=== PATIENT | male | born 1960 | race Hispanic/Latino ===

== ENCOUNTER 2020-05-22 10:17 | Inpatient (IN) | payer BC ==
[~2020-05-22] VITALS: Ht 167.6 cm; Wt 111.0 kg
[2020-05-22 12:15] LABS: BASOPHILS % (AUTO) 0.4 % (0.0-5.0); EOSINOPHILS % (AUTO) 0.2 % (0.0-8.0); HEMATOCRIT 40.7 % (42-54); LYMPHOCYTES % (AUTO) 7.9 % (21.0-51.0); MEAN CORPUSCULAR HEMOGLOBIN 29.6 pg (27.0-33.0); MEAN CORPUSCULAR HGB CONC 33.2 g/dL (32.0-36.0); MEAN CORPUSCULAR VOLUME 89.3 fL (79-99); MONOCYTES % (AUTO) 17.4 % (3.0-13.0); NEUTROPHILS % (AUTO) 73.2 % (40.0-77.0); PLATELET COUNT (AUTO) 443 K/uL (130-400); RED BLOOD CELL COUNT(AUTO) 4.56 MIL/uL (4.50-6.20); WHITE BLOOD COUNT (AUTO) 16.2 K/uL (4.8-10.8)
[2020-05-22 12:30] LABS: INR 1.19 (0.85-1.15); PARTIAL THROMBOPLASTIN TIME 39.2 SEC (26.3-35.5); PROTHROMBIN TIME 12.8 SEC (9.6-11.6)
[2020-05-22 12:31] LABS: CREATININE 1.3 mg/dL (0.5-1.5); POTASSIUM 3.2 mmol/L (3.5-5.1)
[2020-05-22] MEDS ORDERED: CEFTRIAXONE SODIUM 2 GM VIAL ONE (13:13)
[2020-05-22] MEDS ORDERED: SODIUM CHLORIDE 0.9% 1000ML 1,000 ML IV ONE (13:14)
[2020-05-22] MEDS ORDERED: VANCOMYCIN 1.5 GM in SODIUM CHLORIDE 0.9% 250 ML IV SCH (13:30)
[2020-05-22] MEDS: SODIUM CHLORIDE 0.9% 1000ML 1,000 ML IV SCH ×2 (14:30→21:12)
[2020-05-22] MEDS ORDERED: ACETAMINOPHEN 325 MG TAB PO PRN (14:30)
[2020-05-22] MEDS ORDERED: VANCOMYCIN PROTOCOL PER PHARMACY IV SCH (14:30)
[2020-05-22] MEDS ORDERED: ONDANSETRON HCL 4 MG/2 ML VIAL IV PRN (14:30)
[2020-05-22] MEDS ORDERED: COMPOUND IV REFRIGERATED 1 EACH IVSOLN MISC PRN (14:30)
[2020-05-22] MEDS ORDERED: POTASSIUM CHLORIDE 20MEQ/100ML 100 ML IV PRN ×2 (14:45→17:30)
[2020-05-22 14:58] LABS: HEMOGLOBIN A1C 8.9 % (4.0-6.0)
[2020-05-22] MEDS ORDERED: INSULIN HUMULIN R 100 UNIT/ML 3ML SQ SCH (16:30)
[2020-05-22 16:40] LABS: ABG BASE EXCESS 0.6 mmol/L (-2.0-3.0); ABG HCO3 22.4 mmol/L (21.0-28.0); ABG OXYGEN SATURATION 97.4 % (95.0-99.0); ABG PCO2 29 mmHg (35-48)
[2020-05-22] MEDS: FAMOTIDINE/PF 20 MG/2 ML VIAL IV SCH (21:00)
[2020-05-22] MEDS: INSULIN HUMULIN R 100 UNIT/ML 3ML SQ SCH (21:00)
[2020-05-22] MEDS ORDERED: INSULIN GLARGINE 100 UNITS/ML 10 ML VIAL SQ SCH (21:00)
[2020-05-22] MEDS ORDERED: LIDOCAINE HCL-MPF 1% 2ML VIAL ONE (23:09)
[2020-05-22] MEDS ORDERED: POTASSIUM CHLORIDE 20 MEQ ERTAB PO ONE (23:09)
[2020-05-22] MEDS ORDERED: POTASSIUM CHLORIDE 20MEQ/100ML 100 ML IV ONE (23:09)
[2020-05-22] MEDS ORDERED: FAMOTIDINE/PF 20 MG/2 ML VIAL IV ONE (23:10)
[2020-05-22] MEDS ORDERED: INSULIN HUMULIN R 100 UNIT/ML 3ML ONE (23:11)
[2020-05-22] MEDS ORDERED: ACETAMINOPHEN EXTRA STRENGTH 500 MG TABLET ONE (23:31)
[2020-05-23] VITALS (31 sets, daily range): BP systolic 118–167; BP diastolic 57–89
[2020-05-23] MEDS ORDERED: LIDOCAINE HCL-MPF 1% 2ML VIAL IV PRN (01:00)
[2020-05-23] MEDS ORDERED: POTASSIUM CHLORIDE 20MEQ/100ML 100 ML IV PRN (01:00)
[2020-05-23] MEDS ORDERED: VANCOMYCIN 1GM+NS 250ML 0 ML IV ONE (01:04)
[2020-05-23] MEDS: VANCOMYCIN 1.25 GM in SODIUM CHLORIDE 0.9% 250 ML IV SCH ×3 (02:17→21:31)
[2020-05-23] MEDS: POTASSIUM CHLORIDE 20 MEQ ERTAB PO PRN ×3 (02:20→21:33)
[2020-05-23] MEDS: MAGNESIUM 2GM PREMIX 50ML 50 ML IV PRN (02:40)
[2020-05-23] MEDS: INSULIN HUMULIN R 100 UNIT/ML 3ML SQ SCH ×7 (06:12→21:00)
[2020-05-23 06:34] LABS: BASOPHILS % (AUTO) 0.7 % (0.0-5.0); EOSINOPHILS % (AUTO) 0.6 % (0.0-8.0); HEMATOCRIT 34.8 % (42-54); LYMPHOCYTES % (AUTO) 8.9 % (21.0-51.0); MEAN CORPUSCULAR HEMOGLOBIN 29.7 pg (27.0-33.0); MEAN CORPUSCULAR HGB CONC 32.5 g/dL (32.0-36.0); MEAN CORPUSCULAR VOLUME 91.3 fL (79-99); MONOCYTES % (AUTO) 19.8 % (3.0-13.0); NEUTROPHILS % (AUTO) 68.4 % (40.0-77.0); PLATELET COUNT (AUTO) 340 K/uL (130-400); RED BLOOD CELL COUNT(AUTO) 3.81 MIL/uL (4.50-6.20); RED CELL DISTRIBUTION WIDTH 12.3 % (11.0-15.5); WHITE BLOOD COUNT (AUTO) 14.3 K/uL (4.8-10.8)
[2020-05-23 06:52] LABS: ALBUMIN 1.9 g/dL (3.5-5.0); BILIRUBIN,TOTAL 1.2 mg/dL (0.2-1.0); CREATININE 1.1 mg/dL (0.5-1.5); POTASSIUM 3.2 mmol/L (3.5-5.1); TOTAL PROTEIN, SERUM 7.2 g/dL (6.0-8.3)
[2020-05-23] MEDS: FAMOTIDINE/PF 20 MG/2 ML VIAL IV SCH ×2 (09:00→21:31)
[2020-05-23] MEDS: CEFTRIAXONE SODIUM 1 GM IV SCH (09:00)
[2020-05-23] MEDS: SODIUM CHLORIDE 0.9% 1000ML 1,000 ML IV SCH (10:32)
--- NOTE | 2020-05-23 12:39 | NUR ---
SPOKE TO PATIENT AT BEDSIDE FOR D/C PLANNING STATES LIVES WITH SPOUSE, ZORAN BARON WHO WILL PROVIDE TRANSPORT .. RETIRED A YEAR AND A HALF AGO, IS ACTIVE, INDEPENDENT, DRIVES, HAS NOT FOLLOW UP WITH PRIMARY MD, ALTHOUGH DR. CHINCHILLA IS ON HIS FACE SHEET. NEW DX OF DM II WILL NEED FOLLOW UP AND GLUCOMETER ETC. NPO FOR DEBRIDEMENT TODAY. Addendum: 05/23/20 at 1242 by JERE MENDOZA RN CM Amended: Links added.
--- NOTE | 2020-05-23 12:58 | NUR ---
DR ARSHAD HERE WITH THE PT. REQUESTED A 10CC SYRINGE, 18GAUGE NEEDLE AND CHLORAPREP. EDUARDO 10ML OF BLOOD TINGED PUS FROM PTS LT LATERAL THIGH. CULTURE OBTAINED. DR BAL REQUESTED WE NOTIFY DR GONZALES., DONE. WITH A PHOTO SENT. DR BAL ASKED WHY THIS WASN'T DONE PREVIOUSLY
--- NOTE | 2020-05-23 15:45 | NUR ---
PT TAKEN TO SURGERY BY BED IN GOOD CONDITION WITH IV SITES IN PLACE. PT IS CALM AND PLEASANT WITH NO CURRENT COMPLAINTS OF PAIN OR RESP DIFFICULTY.
[2020-05-23] MEDS ORDERED: SODIUM CHLORIDE 0.9% 1000ML 1,000 ML IV ONE (15:56)
[2020-05-23] MEDS ORDERED: METOCLOPRAMIDE 10 MG/2 ML VIAL ONE (16:20)
[2020-05-23] MEDS ORDERED: MIDAZOLAM HCL 1 MG/ML 2ML VIAL ONE (16:27)
[2020-05-23] MEDS ORDERED: ROCURONIUM 10MG/1ML SYR 10 MG/ML ML ONE (16:27)
[2020-05-23] MEDS ORDERED: LIDOCAINE PF 2% 5ML ABBOJECT ONE (16:27)
[2020-05-23] MEDS ORDERED: SUCCINYLCHOLINE 200MG/10ML SYR ONE (16:27)
[2020-05-23] MEDS ORDERED: PROPOFOL 10 MG/ML 20ML VIAL IV ONE (16:27)
[2020-05-23] MEDS ORDERED: FENTANYL CITRATE PF 50 MCG/1 ML 2ML VIAL ONE ×2 (16:28→17:14)
[2020-05-23] MEDS ORDERED: ONDANSETRON HCL 4 MG/2 ML VIAL ONE (16:46)
[2020-05-23] MEDS ORDERED: MEPERIDINE-PF 25 MG/ML SYG ONE ×2 (18:25→18:44)
--- NOTE | 2020-05-23 20:30 | NUR ---
TRANSFER NOTE: Pt admitted to floor via stretcher from recovery room. Also,he is a transfer from [facility] [place]. Arrived to floor fully awake and responsive. AOX4. Has IV site to Lt. hand #[id number] with NS 1L almost empty. -patent and intact. Bandage to left leg was reinforced by OR staff with additional gauze near the groin to stop the bleeding /drain of fluid. Stained of small blood noted to the bandage. Plan of care initiated. Pt. place on full liquid diet as ordered. Denies feeling of pain at this time. VS checked per post-op protocol. Physical assessment done.( See CPOE flow chart for full assessment). Hooked to Tele at bedside with ST result 100-110 bpm. Personal belongings brought by pt's . No apparent distress noted. Kept observed for any unusualities. Needs attended and cared for.
[2020-05-23] MEDS: INSULIN GLARGINE 100 UNITS/ML 10 ML VIAL SQ SCH (21:30)
[2020-05-24] VITALS (8 sets, daily range): BP systolic 115–157; BP diastolic 54–91
[2020-05-24 05:29] LABS: BASOPHILS % (AUTO) 0.5 % (0.0-5.0); EOSINOPHILS % (AUTO) 0.5 % (0.0-8.0); HEMATOCRIT 31.9 % (42-54); LYMPHOCYTES % (AUTO) 11.1 % (21.0-51.0); MEAN CORPUSCULAR HEMOGLOBIN 29.3 pg (27.0-33.0); MEAN CORPUSCULAR VOLUME 91.7 fL (79-99); MONOCYTES % (AUTO) 16.7 % (3.0-13.0); NEUTROPHILS % (AUTO) 66.5 % (40.0-77.0); PLATELET COUNT (AUTO) 369 K/uL (130-400); RED BLOOD CELL COUNT(AUTO) 3.48 MIL/uL (4.50-6.20); RED CELL DISTRIBUTION WIDTH 12.7 % (11.0-15.5); WHITE BLOOD COUNT (AUTO) 16.8 K/uL (4.8-10.8)
[2020-05-24 05:48] LABS: ALBUMIN 1.6 g/dL (3.5-5.0); BILIRUBIN,TOTAL 1.4 mg/dL (0.2-1.0); MAGNESIUM 1.9 mg/dL (1.80-2.40); POTASSIUM 3.3 mmol/L (3.5-5.1); TOTAL PROTEIN, SERUM 6.3 g/dL (6.0-8.3)
[2020-05-24] MEDS: INSULIN HUMULIN R 100 UNIT/ML 3ML SQ SCH ×5 (06:35→20:40)
--- NOTE | 2020-05-24 07:30 | NUR ---
ASSESSMENT ENCOUNTERED PT A&OX3, CALM COOPERATIVE AND DOES NOT APPEAR TO BE IN NAY DISTRESS NOR ANY NEURO DEFICITS PRESENT. PT DENIES PAIN, SOB, NAUSEA. LLE DRESSING DAMP WITH ABD PADS, KERLIX AND SECURED WITH MADI WRAP. DP/PT PULSES PALPABLE. DRESSING CHANGE, PHYSICAL THERAPY ORDERS PENDING BY SURGEON. CALL LIGHT WITHIN REACH, FAMILY AT BEDSIDE.
[2020-05-24] MEDS ORDERED: SODIUM CHLORIDE 0.9% 1000ML 1,000 ML IV ONE (08:15)
[2020-05-24] MEDS ORDERED: POTASSIUM CHLORIDE 20 MEQ ERTAB PO SCH (09:05)
[2020-05-24] MEDS: FAMOTIDINE/PF 20 MG/2 ML VIAL IV SCH ×2 (09:23→20:56)
[2020-05-24] MEDS: CEFTRIAXONE SODIUM 1 GM IV SCH (09:23)
[2020-05-24] MEDS: VANCOMYCIN 1.25 GM in SODIUM CHLORIDE 0.9% 250 ML IV SCH (09:23)
--- NOTE | 2020-05-24 12:00 | NUR ---
TRANSFER TO 3RD FLOOR REPORT GIVEN TO BARI HARRISON, CALL LIGHT WITHIN REACH.
[2020-05-24] MEDS ORDERED: HYDROMORPHONE HCL 2 MG/ML VIAL ONE (13:04)
[2020-05-24] MEDS: HYDROMORPHONE HCL 0.5 MG/0.5 ML ML IVP PRN (13:30)
[2020-05-24] MEDS ORDERED: VANCOMYCIN 1.25 GM in SODIUM CHLORIDE 0.9% 250 ML IV SCH (14:00)
--- NOTE | 2020-05-24 14:50 | NUR ---
RD NOTIFICATION Pt admitted with L-Thigh Abscess. Initial consult cancellation, however Pt with new onset DM. Pt s/p I&D. Bandages being changed at time of visit, 2 attempts. Pt diet at 75gm CCD. No report of GI distress. Pt with borderline Obesity Class III, BMI 39.5. Monitored labs: WBC 16.8, Na 130, K 3.3, Cl 98, BG 131, Ca 7.6, T. Bili 1.4, Alb 1.6, A1C 8.9%. New consultation received. Recommend Continue 75gm CCD Recommend Hebert BID, 500mg Vitamin C BID, 220mg Zinc QD RD to follow up with Diabetes Nutrition Education Addendum: 05/25/20 at [address] Amended: Links added.
[2020-05-24] MEDS ORDERED: HYDROMORPHONE HCL 2 MG/ML VIAL IVP ONE (16:00)
[2020-05-24] MEDS: POTASSIUM CHLORIDE 10% ELIXIR 20 MEQ/15 ML UDCUP PO PRN ×2 (17:00→18:41)
[2020-05-24] MEDS: INSULIN GLARGINE 100 UNITS/ML 10 ML VIAL SQ SCH (20:56)
[2020-05-24] MEDS: VANCOMYCIN 1.5 GM in SODIUM CHLORIDE 0.9% 250 ML IV SCH (20:56)
--- NOTE | 2020-05-25 03:26 | NUR ---
FREQUENT HICCUPS PT COMPLAINTS OF FREQUENT HICCUPS. REFERRED TO ON-CALL COMPRESSOR ENGINEER WITH AN ORDER OF THORAZINE 25 MG PO X 1 ONLY.
[2020-05-25 04:00] VITALS: BP 153/77
[2020-05-25 05:19] LABS: BASOPHILS % (AUTO) 0.7 % (0.0-5.0); EOSINOPHILS % (AUTO) 1.2 % (0.0-8.0); HEMATOCRIT 29.9 % (42-54); LYMPHOCYTES % (AUTO) 10.7 % (21.0-51.0); MEAN CORPUSCULAR HEMOGLOBIN 29.1 pg (27.0-33.0); MEAN CORPUSCULAR HGB CONC 31.8 g/dL (32.0-36.0); MEAN CORPUSCULAR VOLUME 91.7 fL (79-99); MONOCYTES % (AUTO) 11.6 % (3.0-13.0); NEUTROPHILS % (AUTO) 66.1 % (40.0-77.0); PLATELET COUNT (AUTO) 405 K/uL (130-400); RED BLOOD CELL COUNT(AUTO) 3.26 MIL/uL (4.50-6.20); RED CELL DISTRIBUTION WIDTH 12.7 % (11.0-15.5); WHITE BLOOD COUNT (AUTO) 20.7 K/uL (4.8-10.8)
[2020-05-25 05:41] LABS: ALBUMIN 1.5 g/dL (3.5-5.0); BILIRUBIN,TOTAL 1.7 mg/dL (0.2-1.0); CREATININE 0.8 mg/dL (0.5-1.5); POTASSIUM 3.9 mmol/L (3.5-5.1); TOTAL PROTEIN, SERUM 6.5 g/dL (6.0-8.3)
[2020-05-25] MEDS: INSULIN HUMULIN R 100 UNIT/ML 3ML SQ SCH ×7 (06:04→21:30)
[2020-05-25 08:00] VITALS: BP 132/78
[2020-05-25] MEDS: CEFTRIAXONE SODIUM 1 GM IV SCH (09:52)
[2020-05-25] MEDS: FAMOTIDINE/PF 20 MG/2 ML VIAL IV SCH ×2 (09:52→20:54)
[2020-05-25 11:00] VITALS: BP 149/78
[2020-05-25] MEDS: VANCOMYCIN 1.5 GM in SODIUM CHLORIDE 0.9% 250 ML IV SCH ×2 (12:53→20:54)
[2020-05-25 16:01] VITALS: BP 156/76
--- NOTE | 2020-05-25 16:18 | NUR ---
NUTRITION EDUCATION DEJAN provided Diabetes Nutrition Education to Pt and Pt's . Both were very engaged with several pertinent questions. RD discussed home dietary pattern with Pt. Pt 's also asked about Wound Healing Nutrition. RD answered all nutrition questions and provided reference materials. Noted Pt with continuous hiccups and Pt states lasting for several days. RD to continue to monitor. Addendum: 05/25/20 at [address] Amended: Links added.
[2020-05-25 19:54] VITALS: BP 148/81
[2020-05-25] MEDS: INSULIN GLARGINE 100 UNITS/ML 10 ML VIAL SQ SCH (21:31)
[2020-05-26] VITALS (28 sets, daily range): BP systolic 118–162; BP diastolic 51–94
[2020-05-26] MEDS: INSULIN HUMULIN R 100 UNIT/ML 3ML SQ SCH ×2 (05:58→20:39)
--- NOTE | 2020-05-26 07:00 | NUR ---
TO OR NOW
[2020-05-26] MEDS ORDERED: INSULIN HUMULIN R 100 UNIT/ML 3ML SQ SCH (07:30)
[2020-05-26 07:51] LABS: HEMATOCRIT 28.4 % (42-54); MEAN CORPUSCULAR VOLUME 93.7 fL (79-99); NUCLEATED RED BLOOD CELLS 0.2 % (0.0-0.19); PLATELET COUNT (AUTO) 497 K/uL (130-400); RED BLOOD CELL COUNT(AUTO) 3.03 MIL/uL (4.50-6.20); RED CELL DISTRIBUTION WIDTH 13.1 % (11.0-15.5); WHITE BLOOD COUNT (AUTO) 20.7 K/uL (4.8-10.8)
[2020-05-26 08:02] LABS: CREATININE 0.8 mg/dL (0.5-1.5); POTASSIUM 3.5 mmol/L (3.5-5.1)
[2020-05-26] MEDS ORDERED: DEXAMETHASONE SOD PHOSPHATE 10MG/ML 1ML VIAL ONE (08:21)
[2020-05-26] MEDS ORDERED: SUCCINYLCHOLINE 200MG/10ML SYR ONE (08:21)
[2020-05-26] MEDS ORDERED: LIDOCAINE PF 2% 5ML ABBOJECT ONE (08:21)
[2020-05-26] MEDS ORDERED: PROPOFOL 10 MG/ML 20ML VIAL IV ONE ×2 (08:23→09:02)
[2020-05-26] MEDS ORDERED: ONDANSETRON HCL 4 MG/2 ML VIAL ONE (08:23)
[2020-05-26] MEDS ORDERED: MIDAZOLAM HCL 1 MG/ML 2ML VIAL ONE (08:23)
[2020-05-26] MEDS ORDERED: FENTANYL CITRATE PF 50 MCG/1 ML 2ML VIAL ONE (08:23)
[2020-05-26] MEDS ORDERED: ROCURONIUM 10MG/1ML SYR 10 MG/ML ML ONE (08:24)
[2020-05-26] MEDS: VANCOMYCIN 1.5 GM in SODIUM CHLORIDE 0.9% 250 ML IV SCH ×2 (09:00→20:41)
[2020-05-26 09:25] LABS: BAND NEUTROPHILS % (MANUAL) 1 % (0-2); EOSINOPHILS % (MANUAL) 1 % (1-6); LYMPHOCYTES % (MANUAL) 6 % (22-44); MAN.DIFF COMMENT-IMPRESSION MANUAL DIFFERENTIAL; MONOCYTES % (MANUAL) 18 % (2-9); SEGMENTED NEUTROPHILS % 74 % (40-70)
[2020-05-26 09:26] LABS: PLATELET MORPHOLOGY COMMENT SLIGHT INCREASED
[2020-05-26] MEDS ORDERED: METOCLOPRAMIDE 10 MG/2 ML VIAL ONE (09:36)
[2020-05-26] MEDS ORDERED: NEOSTIGMINE 5MG/5ML SYR IV ONE (09:36)
[2020-05-26] MEDS ORDERED: MEPERIDINE-PF 25 MG/ML SYG ONE ×2 (10:05→10:16)
--- NOTE | 2020-05-26 10:30 | NUR ---
POST OP NOTE:BACK FROM OR, AWAKE AND WITH SOME PAIN TO LT. SURGICAL THIGH. DRESSING INTACT, CLEAN AND DRY. WILL CONT. MEDS. BEFORE. AT BEDSIDE. IVF INFUSING AT 100ML/HR. WILL CHECK ORDERS and cont. care.
[2020-05-26] MEDS: CEFTRIAXONE SODIUM 1 GM IV SCH (10:58)
[2020-05-26] MEDS: HYDROMORPHONE HCL 0.5 MG/0.5 ML ML IVP PRN (13:02)
[2020-05-26] MEDS ORDERED: HYDRALAZINE HCL 20 MG/ML VIAL IV PRN (14:45)
[2020-05-26] MEDS: HYDROCODONE/ACETAMINOPHEN 5/325 MG TAB PO PRN (14:57)
[2020-05-26] MEDS: FAMOTIDINE/PF 20 MG/2 ML VIAL IV SCH ×2 (15:02→20:40)
[2020-05-26] MEDS: INSULIN GLARGINE 100 UNITS/ML 10 ML VIAL SQ SCH (20:36)
[2020-05-27 04:00] VITALS: BP 151/77
[2020-05-27] MEDS: INSULIN HUMULIN R 100 UNIT/ML 3ML SQ SCH ×7 (05:22→20:48)
[2020-05-27 06:20] LABS: HEMATOCRIT 26.3 % (42-54); MEAN CORPUSCULAR HEMOGLOBIN 29.7 pg (27.0-33.0); MEAN CORPUSCULAR HGB CONC 31.9 g/dL (32.0-36.0); MEAN CORPUSCULAR VOLUME 92.9 fL (79-99); NUCLEATED RED BLOOD CELLS 0.1 % (0.0-0.19); RED BLOOD CELL COUNT(AUTO) 2.83 MIL/uL (4.50-6.20); RED CELL DISTRIBUTION WIDTH 13.2 % (11.0-15.5); WHITE BLOOD COUNT (AUTO) 24.3 K/uL (4.8-10.8)
[2020-05-27 06:33] LABS: CREATININE 0.9 mg/dL (0.5-1.5); POTASSIUM 3.3 mmol/L (3.5-5.1)
[2020-05-27] MEDS: FAMOTIDINE/PF 20 MG/2 ML VIAL IV SCH ×2 (08:35→20:43)
[2020-05-27] MEDS: CEFTRIAXONE SODIUM 1 GM IV SCH (08:35)
[2020-05-27 10:04] VITALS: BP 141/76
[2020-05-27] MEDS: CEFAZOLIN SODIUM 1 GM VIAL IVP SCH ×2 (11:26→17:22)
[2020-05-27] MEDS: HYDROMORPHONE HCL 0.5 MG/0.5 ML ML IVP PRN (11:27)
[2020-05-27] MEDS: HYDROCODONE/ACETAMINOPHEN 5/325 MG TAB PO PRN (11:53)
[2020-05-27 12:00] VITALS: BP 157/74
[2020-05-27] MEDS ORDERED: HYDROMORPHONE HCL 0.5 MG/0.5 ML ML IVP SCH (12:15)
--- NOTE | 2020-05-27 12:30 | NUR ---
WET TO DRY DRESSING DONE, WOUND LOOKS VERY CLEAN, GOOD COLOR. LG. AREA WITH TUNNELING ALL AROUND. MEDICATED WITH NORCO ND DILAUDID BUT STILL EXPERIENCED A LOT OF PAIN. AREA COVERS ALMOST ALL OF THIGH UP TO GROIN AREA.
[2020-05-27] MEDS ORDERED: POTASSIUM CHLORIDE 20 MEQ ERTAB PO SCH (14:00)
[2020-05-27 17:00] VITALS: BP 108/77
[2020-05-27] MEDS ORDERED: POTASSIUM CHLORIDE 20 MEQ ERTAB PO ONE (17:13)
--- NOTE | 2020-05-27 18:31 | NUR ---
DR. HORTA VISITED WITH PT. SOMETIME AFTER LUNCH, [facility]
[2020-05-27 20:00] VITALS: BP 151/64
[2020-05-27] MEDS: INSULIN GLARGINE 100 UNITS/ML 10 ML VIAL SQ SCH (20:42)
[2020-05-28] VITALS: BP 105/70
[2020-05-28] MEDS: CEFAZOLIN SODIUM 1 GM VIAL IVP SCH ×3 (02:00→17:41)
[2020-05-28 04:00] VITALS: BP 124/65
[2020-05-28 05:08] LABS: BASOPHILS % (AUTO) 0.5 % (0.0-5.0); EOSINOPHILS % (AUTO) 1.4 % (0.0-8.0); HEMATOCRIT 24.8 % (42-54); LYMPHOCYTES % (AUTO) 9.7 % (21.0-51.0); MEAN CORPUSCULAR HEMOGLOBIN 29.3 pg (27.0-33.0); MEAN CORPUSCULAR HGB CONC 31.5 g/dL (32.0-36.0); MEAN CORPUSCULAR VOLUME 93.2 fL (79-99); MONOCYTES % (AUTO) 11.4 % (3.0-13.0); NUCLEATED RED BLOOD CELLS 0.1 % (0.0-0.19); PLATELET COUNT (AUTO) 558 K/uL (130-400); RED BLOOD CELL COUNT(AUTO) 2.66 MIL/uL (4.50-6.20); RED CELL DISTRIBUTION WIDTH 13.6 % (11.0-15.5); WHITE BLOOD COUNT (AUTO) 21.3 K/uL (4.8-10.8)
[2020-05-28 05:20] LABS: ALBUMIN 1.6 g/dL (3.5-5.0); BILIRUBIN,TOTAL 0.8 mg/dL (0.2-1.0); CREATININE 0.8 mg/dL (0.5-1.5); POTASSIUM 3.7 mmol/L (3.5-5.1); TOTAL PROTEIN, SERUM 5.7 g/dL (6.0-8.3)
[2020-05-28] MEDS: INSULIN HUMULIN R 100 UNIT/ML 3ML SQ SCH ×7 (06:10→21:00)
[2020-05-28 06:30] LABS: ERYTHROCYTE SEDIMENTATION RATE 143 MM/HR (0-20)
[2020-05-28 06:42] LABS: CRP QUANTITATIVE 262.8 mg/L (0.00-9.0)
[2020-05-28 08:00] VITALS: BP 141/73
[2020-05-28] MEDS: FAMOTIDINE/PF 20 MG/2 ML VIAL IV SCH ×2 (08:27→21:15)
[2020-05-28 11:39] VITALS: BP 140/78
[2020-05-28] MEDS: HYDROMORPHONE HCL 0.5 MG/0.5 ML ML IVP PRN (14:32)
[2020-05-28 16:00] VITALS: BP 114/72
[2020-05-28 19:48] VITALS: BP 103/64
[2020-05-28] MEDS ORDERED: INSULIN GLARGINE 100 UNITS/ML 10 ML VIAL SQ SCH (21:00)
[2020-05-28] MEDS: LACTULOSE 20 GM/30 ML UDCUP PO SCH (22:14)
[2020-05-28] MEDS ORDERED: COMPOUND NARC IV MISC 1 EACH IVSOLN MISC PRN (22:15)
[2020-05-28] MEDS ORDERED: TEMAZEPAM 15 MG CAPSULE PO ONE (22:40)
[2020-05-29] VITALS (7 sets, daily range): BP systolic 110–141; BP diastolic 64–83
[2020-05-29] MEDS: CEFAZOLIN SODIUM 1 GM VIAL IVP SCH ×3 (01:46→17:12)
[2020-05-29] MEDS: HYDROMORPHONE HCL 0.5 MG/0.5 ML ML IVP PRN (02:11)
[2020-05-29 03:51] LABS: BASOPHILS % (AUTO) 0.6 % (0.0-5.0); EOSINOPHILS % (AUTO) 1.3 % (0.0-8.0); HEMATOCRIT 25.3 % (42-54); LYMPHOCYTES % (AUTO) 11.6 % (21.0-51.0); MEAN CORPUSCULAR HEMOGLOBIN 29.3 pg (27.0-33.0); MEAN CORPUSCULAR HGB CONC 31.2 g/dL (32.0-36.0); MEAN CORPUSCULAR VOLUME 93.7 fL (79-99); MONOCYTES % (AUTO) 12.1 % (3.0-13.0); NEUTROPHILS % (AUTO) 61.2 % (40.0-77.0); NUCLEATED RED BLOOD CELLS 0.1 % (0.0-0.19); PLATELET COUNT (AUTO) 616 K/uL (130-400); WHITE BLOOD COUNT (AUTO) 17.9 K/uL (4.8-10.8)
[2020-05-29 04:04] LABS: ALBUMIN 1.6 g/dL (3.5-5.0); BILIRUBIN,TOTAL 0.7 mg/dL (0.2-1.0); POTASSIUM 3.4 mmol/L (3.5-5.1)
[2020-05-29 04:19] LABS: CRP QUANTITATIVE 243.5 mg/L (0.00-9.0)
[2020-05-29 05:06] LABS: ERYTHROCYTE SEDIMENTATION RATE 146 MM/HR (0-20)
[2020-05-29] MEDS: INSULIN HUMULIN R 100 UNIT/ML 3ML SQ SCH ×8 (06:10→19:38)
[2020-05-29] MEDS: FAMOTIDINE/PF 20 MG/2 ML VIAL IV SCH ×2 (09:28→21:03)
[2020-05-29] MEDS: LACTULOSE 20 GM/30 ML UDCUP PO SCH (10:08)
[2020-05-29] MEDS ORDERED: INSULIN GLARGINE 100 UNITS/ML 10 ML VIAL SQ SCH (21:00)
[2020-05-30] MEDS: CEFAZOLIN SODIUM 1 GM VIAL IVP SCH ×2 (00:56→09:24)
[2020-05-30] MEDS: HYDROCODONE/ACETAMINOPHEN 5/325 MG TAB PO PRN ×2 (00:58→14:16)
[2020-05-30 03:37] VITALS: BP 134/79
[2020-05-30] MEDS: INSULIN HUMULIN R 100 UNIT/ML 3ML SQ SCH ×4 (05:21→12:45)
[2020-05-30 07:07] LABS: BASOPHILS % (AUTO) 0.6 % (0.0-5.0); EOSINOPHILS % (AUTO) 1.2 % (0.0-8.0); HEMATOCRIT 25.8 % (42-54); LYMPHOCYTES % (AUTO) 11.8 % (21.0-51.0); MEAN CORPUSCULAR HEMOGLOBIN 29.3 pg (27.0-33.0); MEAN CORPUSCULAR HGB CONC 30.6 g/dL (32.0-36.0); MEAN CORPUSCULAR VOLUME 95.6 fL (79-99); MONOCYTES % (AUTO) 10.5 % (3.0-13.0); NEUTROPHILS % (AUTO) 67.1 % (40.0-77.0); RED CELL DISTRIBUTION WIDTH 14.3 % (11.0-15.5); WHITE BLOOD COUNT (AUTO) 19.7 K/uL (4.8-10.8)
[2020-05-30 07:16] LABS: PLATELET COUNT (AUTO) 710 K/uL (130-400)
[2020-05-30 07:35] LABS: ALBUMIN 1.7 g/dL (3.5-5.0); CREATININE 0.9 mg/dL (0.5-1.5); POTASSIUM 3.5 mmol/L (3.5-5.1); TOTAL PROTEIN, SERUM 7.3 g/dL (6.0-8.3)
[2020-05-30 08:00] VITALS: BP 120/79
[2020-05-30 08:14] LABS: CRP QUANTITATIVE 252.3 mg/L (0.00-9.0)
[2020-05-30 08:33] LABS: ERYTHROCYTE SEDIMENTATION RATE 140 MM/HR (0-20)
[2020-05-30] MEDS: FAMOTIDINE/PF 20 MG/2 ML VIAL IV SCH (09:24)
[2020-05-30] MEDS: MAGNESIUM 2GM PREMIX 50ML 50 ML IV PRN (09:25)
[2020-05-30] MEDS: HYDROMORPHONE HCL 0.5 MG/0.5 ML ML IVP PRN (10:58)
[2020-05-30 12:00] VITALS: BP 138/65
--- NOTE | 2020-05-30 12:35 | NUR ---
RD FOLLOW UP Visit: 05/30/20 12:30PM Pt tolerating 75gm CCD with no report of GI distress. Pt reports decreased PO intake due to desire for weight loss. Pt reports cutting back on PO intake prior to illness/admit. RD discussed recommended weight loss guidelines with Pt. Pt reports desire for change and verbalized understanding. Monitored labs: BG 216, WBC 19.7, H/H 7.7/25.8, Na 134, Cl 99, CRP 252.30, ALb 1.7. S/p debridement x 2. Reports difficulty sleeping due to leg pain. Recommend 60gm CC diet modification Recommend 1000mg Vitamin C QD, 220mg Zinc QD Pt pending discharge at time of visit. Please notify as nutrition concerns arise. Thank you. Addendum: 05/31/20 at [address] Amended: Links added.
--- NOTE | 2020-05-30 14:50 | NUR ---
WOUND VAC WAS REMOVED AND WET TO DRY DRSG APPLICATION ON TO HIS LEFT UPPER THIGH WOUND PICTURES DONE ,WITH 14 CM WIDE AND 24 CM LENGTH .WOUND SKIN CLEAN AND PINK . TOLERATE WELL.
--- NOTE | 2020-05-30 15:10 | NUR ---
REPORT CALLED TO JYOTSNA LAMAR . STAFF STEVE TRINH LVN
--- NOTE | 2020-05-30 15:34 | NUR ---
CALLED EMS FOR PT TO BE TRANSFER TO [facility]
[2020-05-30 16:00] VITALS: BP 162/82
--- NOTE | 2020-05-30 17:00 | NUR ---
VIA EMS? NO EMS BENENFITS. ADIVES BY [facility] PT HAS NO EMS BENEFITS, ADVISED JORGE AT [facility], LAURA AT BEDSIDE WITH PT .. WHO HAS HIS OWN WHEELCHAIR IN HIS ROOM, HE STATES WILL GO BY WHEELCHAIR VAN, STATES HIS PAIN IS OK AND HE THINKS HE WILL DO OK....ADVISED SALES APPLICATIONS ENGINEER AND CHARGE WHO STATED THEY WOULD LET ESHA HARRISON KNOW. Addendum: 05/31/20 at 0713 by JERE MENDOZA RN CM Amended: Links added.
--- NOTE | 2020-05-30 17:45 | NUR ---
DISCHARGE TO [facility] VIA [facility] . WITH PT . AND PT WHEELCHAIR ,WAS TAKEN ALSO THE SL TO HIS RFA WAS DC NOTED NO REDNESS TO SITE, SM PRESSURE DRSG APPLICATION . ON . DRSG TO HIS LEFT UPPER THIGH DRY AND CLEAN.
== END 2020-05-30 17:45 | DRG 853 ==
LOC: EDH 10:17 → EDHIP 14:18 → 3DH 22:32 → 4BH 05-23 20:35 → 3DH 05-24 11:45
PROVIDERS: ADMIT Internal Medicine; ATTEND Internal Medicine
PROC: 0KDR0ZZ Extraction of Left Upper Leg Muscle, Open Approach (ICD-10-PCS; 2020-05-26)
PROC: 0Y9B3ZZ Drainage of Left Lower Extremity, Percutaneous Approach (ICD-10-PCS; 2020-05-26)
PROC: 0QD70ZZ Extraction of Left Upper Femur, Open Approach (ICD-10-PCS; principal; 2020-05-26 08:20)
PROC: 0KDT0ZZ Extraction of Left Lower Leg Muscle, Open Approach (ICD-10-PCS; 2020-05-26 08:20)
DX: A41.01 Sepsis due to Methicillin susceptible Staphylococcus aureus (principal); M72.6 Necrotizing fasciitis; L02.416 Cutaneous abscess of left lower limb; E87.1 Hypo-osmolality and hyponatremia; L03.90 Cellulitis, unspecified; M00.9 Pyogenic arthritis, unspecified; Z68.41 Body mass index [BMI] 40.0-44.9, adult; E11.52 Type 2 diabetes mellitus with diabetic peripheral angiopathy with gangrene; M86.252 Subacute osteomyelitis, left femur; I25.10 Atherosclerotic heart disease of native coronary artery without angina pectoris; E87.8 Other disorders of electrolyte and fluid balance, not elsewhere classified; E87.6 Hypokalemia; E66.01 Morbid (severe) obesity due to excess calories; E11.65 Type 2 diabetes mellitus with hyperglycemia; E86.1 Hypovolemia; K21.9 Gastro-esophageal reflux disease without esophagitis; R53.81 Other malaise; E11.69 Type 2 diabetes mellitus with other specified complication; I10 Essential (primary) hypertension; M60.9 Myositis, unspecified; Z20.828 Contact with and (suspected) exposure to other viral communicable diseases; Z79.4 Long term (current) use of insulin; Z83.3 Family history of diabetes mellitus
CPT/HCPCS: 36415; 36600; 73718; 76882; 80048; 80053; 80202; 82803; 82948; 83036; 83605; 83735; 83930; 83935; 84145; 84300; 85025; 85027; 85610; 85651; 85730; 86140; 87040; 87070; 87076; 87077; 87186; 87205; 87426; 97039; G0378; J0330; J0690; J0696; J1100; J1170; J1815; J2001; J2175; J2250; J2405; J2704; J2710; J2765; J3010; J3370; J3475; J3480; J3490; J7030; J7050; Q0161; U0003

== ENCOUNTER → 2020-07-16 | Outpatient (CLI) | payer BC | END | disposition home or self-care (01) | LOC: WHH 13:45 | PROVIDERS: ATTEND Family Medicine | DX: T81.31XA Disruption of external operation (surgical) wound, not elsewhere classified, initial encounter (principal); E11.69 Type 2 diabetes mellitus with other specified complication; M86.9 Osteomyelitis, unspecified; E11.52 Type 2 diabetes mellitus with diabetic peripheral angiopathy with gangrene; I96 Gangrene, not elsewhere classified; I10 Essential (primary) hypertension; E11.628 Type 2 diabetes mellitus with other skin complications; E66.01 Morbid (severe) obesity due to excess calories; I25.10 Atherosclerotic heart disease of native coronary artery without angina pectoris; K21.9 Gastro-esophageal reflux disease without esophagitis; Z68.35 Body mass index [BMI] 35.0-35.9, adult; Z79.4 Long term (current) use of insulin; Y83.8 Other surgical procedures as the cause of abnormal reaction of the patient, or of later complication, without mention of misadventure at the time of the procedure; Y92.238 Other place in hospital as the place of occurrence of the external cause | CPT/HCPCS: 99215 ==

== ENCOUNTER → 2020-07-23 | Outpatient (CLI) | payer BC | END | disposition home or self-care (01) | LOC: WHH 13:30 | PROVIDERS: ATTEND Family Medicine | DX: T81.31XD Disruption of external operation (surgical) wound, not elsewhere classified, subsequent encounter (principal); E11.69 Type 2 diabetes mellitus with other specified complication; M86.9 Osteomyelitis, unspecified; E11.52 Type 2 diabetes mellitus with diabetic peripheral angiopathy with gangrene; I96 Gangrene, not elsewhere classified; I10 Essential (primary) hypertension; E11.628 Type 2 diabetes mellitus with other skin complications; E66.01 Morbid (severe) obesity due to excess calories; I25.10 Atherosclerotic heart disease of native coronary artery without angina pectoris; K21.9 Gastro-esophageal reflux disease without esophagitis; Z68.35 Body mass index [BMI] 35.0-35.9, adult; Z79.4 Long term (current) use of insulin; Y83.8 Other surgical procedures as the cause of abnormal reaction of the patient, or of later complication, without mention of misadventure at the time of the procedure | CPT/HCPCS: 99214; A6022; A6197 ==

== ENCOUNTER → 2020-07-26 | Outpatient (CLI) | payer BC | END | disposition home or self-care (01) | LOC: WHH 13:30 | PROVIDERS: ATTEND Family Medicine | DX: T81.31XD Disruption of external operation (surgical) wound, not elsewhere classified, subsequent encounter (principal); E11.69 Type 2 diabetes mellitus with other specified complication; M86.9 Osteomyelitis, unspecified; E11.52 Type 2 diabetes mellitus with diabetic peripheral angiopathy with gangrene; I96 Gangrene, not elsewhere classified; I10 Essential (primary) hypertension; E11.628 Type 2 diabetes mellitus with other skin complications; E66.01 Morbid (severe) obesity due to excess calories; I25.10 Atherosclerotic heart disease of native coronary artery without angina pectoris; K21.9 Gastro-esophageal reflux disease without esophagitis; Z68.35 Body mass index [BMI] 35.0-35.9, adult; Z79.4 Long term (current) use of insulin; Y83.8 Other surgical procedures as the cause of abnormal reaction of the patient, or of later complication, without mention of misadventure at the time of the procedure | CPT/HCPCS: 17250; 87070; 87077; 87186; A6022; A6197 ==

== ENCOUNTER → 2020-07-30 | Outpatient (CLI) | payer BC | END | disposition home or self-care (01) | LOC: WHH 13:30 | PROVIDERS: ATTEND Family Medicine | DX: T81.31XD Disruption of external operation (surgical) wound, not elsewhere classified, subsequent encounter (principal); E11.69 Type 2 diabetes mellitus with other specified complication; M86.9 Osteomyelitis, unspecified; E11.52 Type 2 diabetes mellitus with diabetic peripheral angiopathy with gangrene; I96 Gangrene, not elsewhere classified; I10 Essential (primary) hypertension; E11.628 Type 2 diabetes mellitus with other skin complications; E66.01 Morbid (severe) obesity due to excess calories; I25.10 Atherosclerotic heart disease of native coronary artery without angina pectoris; K21.9 Gastro-esophageal reflux disease without esophagitis; Z68.35 Body mass index [BMI] 35.0-35.9, adult; Z79.4 Long term (current) use of insulin; Y83.8 Other surgical procedures as the cause of abnormal reaction of the patient, or of later complication, without mention of misadventure at the time of the procedure | CPT/HCPCS: 99214; A6022 ==

== ENCOUNTER → 2020-08-06 | Outpatient (CLI) | payer BC ==
[~2020-08-06] MED LIST: LIDOCAINE HCL 2% JELLY 5 ML TP ONE
== END | disposition home or self-care (01) ==
LOC: WHH 11:00
PROVIDERS: ATTEND Family Medicine
DX: T81.31XD Disruption of external operation (surgical) wound, not elsewhere classified, subsequent encounter (principal); E11.69 Type 2 diabetes mellitus with other specified complication; M86.9 Osteomyelitis, unspecified; E11.52 Type 2 diabetes mellitus with diabetic peripheral angiopathy with gangrene; I96 Gangrene, not elsewhere classified; I10 Essential (primary) hypertension; E11.628 Type 2 diabetes mellitus with other skin complications; E66.01 Morbid (severe) obesity due to excess calories; I25.10 Atherosclerotic heart disease of native coronary artery without angina pectoris; K21.9 Gastro-esophageal reflux disease without esophagitis; Z68.35 Body mass index [BMI] 35.0-35.9, adult; Z79.4 Long term (current) use of insulin; Y83.8 Other surgical procedures as the cause of abnormal reaction of the patient, or of later complication, without mention of misadventure at the time of the procedure
CPT/HCPCS: 11042; 11045

== ENCOUNTER → 2020-08-20 | Outpatient (CLI) | payer BC ==
[~2020-08-20] MED LIST changes: +SILVER NITRATE APPLICATOR 1 SWAB TP ONE
== END | disposition home or self-care (01) ==
LOC: WHH 11:00
PROVIDERS: ATTEND Family Medicine
DX: T81.31XD Disruption of external operation (surgical) wound, not elsewhere classified, subsequent encounter (principal); E11.69 Type 2 diabetes mellitus with other specified complication; M86.9 Osteomyelitis, unspecified; E11.628 Type 2 diabetes mellitus with other skin complications; E11.52 Type 2 diabetes mellitus with diabetic peripheral angiopathy with gangrene; I96 Gangrene, not elsewhere classified; I10 Essential (primary) hypertension; E66.01 Morbid (severe) obesity due to excess calories; I25.10 Atherosclerotic heart disease of native coronary artery without angina pectoris; K21.9 Gastro-esophageal reflux disease without esophagitis; Z68.35 Body mass index [BMI] 35.0-35.9, adult; Z79.4 Long term (current) use of insulin; Y83.8 Other surgical procedures as the cause of abnormal reaction of the patient, or of later complication, without mention of misadventure at the time of the procedure
CPT/HCPCS: 17250

== ENCOUNTER → 2020-09-03 | Outpatient (CLI) | payer BC | END | disposition home or self-care (01) | LOC: WHH 11:00 | PROVIDERS: ATTEND Family Medicine | DX: T81.31XD Disruption of external operation (surgical) wound, not elsewhere classified, subsequent encounter (principal); E11.69 Type 2 diabetes mellitus with other specified complication; M86.9 Osteomyelitis, unspecified; E11.628 Type 2 diabetes mellitus with other skin complications; E11.52 Type 2 diabetes mellitus with diabetic peripheral angiopathy with gangrene; I10 Essential (primary) hypertension; E66.01 Morbid (severe) obesity due to excess calories; I25.10 Atherosclerotic heart disease of native coronary artery without angina pectoris; K21.9 Gastro-esophageal reflux disease without esophagitis; Z68.35 Body mass index [BMI] 35.0-35.9, adult; Z79.4 Long term (current) use of insulin; Y83.8 Other surgical procedures as the cause of abnormal reaction of the patient, or of later complication, without mention of misadventure at the time of the procedure | CPT/HCPCS: 99212 ==

== ENCOUNTER 2021-05-14 05:54 | Inpatient (IN) | payer BC ==
[~2021-05-14] VITALS: Ht 170.2 cm; Wt 98.0 kg
[2021-05-14 06:06] VITALS: BP 152/80
[2021-05-14] MEDS ORDERED: CEFTRIAXONE 1G VIAL 1 GM in 0.9%NACL 100ML 100 ML IV ONE (06:30)
[2021-05-14] MEDS ORDERED: FAMOTIDINE 20MG VIAL IV SCH (06:30)
[2021-05-14] MEDS ORDERED: DEXAMETHASONE SOD PHOSPHATE 4 MG/ML 1ML VIAL IVP SCH (06:30)
[2021-05-14 06:33] LABS: BASOPHILS % (AUTO) 0.3 % (0.0-5.0); LYMPHOCYTES % (AUTO) 14.6 % (21.0-51.0); MEAN CORPUSCULAR HEMOGLOBIN 30.3 pg (27.0-33.0); MEAN CORPUSCULAR HGB CONC 33.2 g/dL (32.0-36.0); MEAN CORPUSCULAR VOLUME 91.3 fL (79-99); MONOCYTES % (AUTO) 14.1 % (3.0-13.0); NEUTROPHILS % (AUTO) 68.7 % (40.0-77.0); PLATELET COUNT (AUTO) 242 K/uL (130-400); RED BLOOD CELL COUNT(AUTO) 4.82 MIL/uL (4.50-6.20); RED CELL DISTRIBUTION WIDTH 11.9 % (11.0-15.5)
[2021-05-14 06:40] LABS: CREATININE 1.2 mg/dL (0.5-1.5); POTASSIUM 3.4 mmol/L (3.5-5.1)
[2021-05-14 06:51] LABS: ALBUMIN 2.8 g/dL (3.5-5.0); BILIRUBIN,DIRECT 0.4 mg/dL (0.0-0.3); BILIRUBIN,TOTAL 1.3 mg/dL (0.2-1.0); CRP QUANTITATIVE 105.2 mg/L (0.00-9.0); TOTAL PROTEIN, SERUM 7.9 g/dL (6.0-8.3)
[2021-05-14] MEDS ORDERED: INSULIN HUMULIN R 100 UNIT/ML 3ML SQ ONE (07:00)
[2021-05-14] MEDS ORDERED: CEFTRIAXONE 1G VIAL IVP SCH (07:00)
[2021-05-14 07:15] VITALS: BP 128/39
[2021-05-14 07:24] LABS: ABG BASE EXCESS -1.3 mmol/L (-2.0-3.0); ABG HCO3 22.1 mmol/L (21.0-28.0); ABG OXYGEN SATURATION 97.4 % (95.0-99.0); ABG PCO2 34 mmHg (35-48)
[2021-05-14] MEDS ORDERED: 0.9% NACL 250ML IVPB SCH ×2 (07:30→11:30)
[2021-05-14 07:48] LABS: ERYTHROCYTE SEDIMENTATION RATE 74 MM/HR (0-20)
[2021-05-14 08:13] LABS: APPEARANCE,URINE Clear (CLEAR); BILIRUBIN,URINE Negative (NEGATIVE); COLOR,URINE Yellow (YELLOW); GLUCOSE, URINE (UA) >=1000 mg/dL (NEGATIVE); KETONES,URINE 15 mg/dL (NEGATIVE); LEUKOCYTE ESTERASE ,URINE Negative (NEGATIVE); NITRATE,URINE Negative (NEGATIVE); OCCULT BLOOD,URINE Nonhemolyzed Trace (NEGATIVE); PROTEIN,URINE POS 2+ mg/dL (NEGATIVE)
[2021-05-14] MEDS: ALBUTEROL INHALER 90MCG/INH IH SCH ×4 (08:20→23:45)
[2021-05-14] MEDS: DOXYCYCLINE 100MG+NS 250ML IV SCH ×2 (08:24→20:38)
[2021-05-14] MEDS: 0.9% NACL 250ML 250 ML IV SCH ×2 (08:24→20:38)
[2021-05-14] MEDS ORDERED: ACETAMINOPHEN 325 MG TAB PO PRN ×2 (08:30)
[2021-05-14] MEDS ORDERED: ERGOCALCIFEROL (VITAMIN D2) 50,000 UNIT CAPSULE PO SCH (08:30)
[2021-05-14] MEDS ORDERED: ONDANSETRON 4MG INJ IV PRN (08:30)
[2021-05-14 08:52] LABS: BACTERIA,URINE Few /HPF (None Seen); WBC,URINE 0-1 /HPF (0-1); YEAST,URINE BUDDING Few /HPF (None Seen)
[2021-05-14 08:53] LABS: SQUAMOUS EPITHELIAL CELL,UR 0-2 /HPF (0-2)
[2021-05-14] MEDS ORDERED: LIDOCAINE HCL-MPF 1% 2ML VIAL IV PRN (09:00)
[2021-05-14] MEDS ORDERED: DOXYCYCLINE 100MG IVPB (VIAL) IVPB SCH (09:00)
[2021-05-14] MEDS ORDERED: POTASSIUM CHLORIDE 10MEQ/100ML 100 ML IV PRN (09:00)
[2021-05-14] MEDS ORDERED: POTASSIUM CHLORIDE 10% ELIXIR 20 MEQ/15 ML UDCUP PO PRN (09:00)
[2021-05-14] MEDS ORDERED: ENOXAPARIN SODIUM 120 MG/0.8ML SQ SCH (09:00)
[2021-05-14] MEDS: KCL 20 MEQ ERTAB PO PRN ×2 (09:33→12:37)
[2021-05-14] MEDS: ASCORBIC ACID 500 MG TAB PO SCH (09:33)
[2021-05-14] MEDS: ZINC SULFATE 220 CAPSULE PO SCH (09:34)
[2021-05-14 09:37] VITALS: BP 119/60
[2021-05-14] MEDS ORDERED: ATOR20TA65 PO (10:24)
[2021-05-14] MEDS ORDERED: LOSA50TA64 PO (10:24)
[2021-05-14] MEDS ORDERED: PHARMACY COMMUNICATION MISC SCH (11:30)
[2021-05-14] MEDS ORDERED: AZITHROMYCIN 500MG VIAL IVPB SCH (11:30)
[2021-05-14] MEDS: INSULIN HUMULIN R 100 UNIT/ML 3ML SQ SCH ×3 (11:36→20:48)
[2021-05-14] MEDS ORDERED: TOCILIZUMAB IV ONE (14:00)
[2021-05-14] MEDS ORDERED: [UNRECOGNIZED DRUG - OTHER] IV ONE (14:00)
[2021-05-14 17:19] VITALS: BP 112/73
[2021-05-14] MEDS: GUAIFENESIN-DM 200/20 MG 10 ML PO PRN (18:41)
[2021-05-14 19:56] VITALS: BP 129/71
[2021-05-14] MEDS: CEFTRIAXONE 1G VIAL IVP SCH (20:39)
[2021-05-14] MEDS: SOLU-MEDROL 40MG VIAL IVP SCH (20:39)
[2021-05-14] MEDS: ENOXAPARIN SODIUM 60 MG/0.6 ML SQ SCH (20:42)
[2021-05-14] MEDS ORDERED: SOLU-MEDROL 40MG VIAL IVP SCH (21:00)
[2021-05-14] MEDS ORDERED: ENOXAPARIN SODIUM 40 MG/0.4 ML SYRINGE SQ SCH (21:00)
[2021-05-14 23:51] VITALS: BP 121/69
[2021-05-15 04:04] VITALS: BP 158/78
[2021-05-15 04:49] LABS: BASOPHILS % (AUTO) 0.4 % (0.0-5.0); HEMATOCRIT 45.5 % (42-54); LYMPHOCYTES % (AUTO) 14.5 % (21.0-51.0); MEAN CORPUSCULAR HEMOGLOBIN 30.1 pg (27.0-33.0); MEAN CORPUSCULAR HGB CONC 31.6 g/dL (32.0-36.0); MONOCYTES % (AUTO) 16.1 % (3.0-13.0); NEUTROPHILS % (AUTO) 66.3 % (40.0-77.0); PLATELET COUNT (AUTO) 275 K/uL (130-400); RED BLOOD CELL COUNT(AUTO) 4.79 MIL/uL (4.50-6.20); RED CELL DISTRIBUTION WIDTH 11.9 % (11.0-15.5)
[2021-05-15 05:01] LABS: ALBUMIN 2.7 g/dL (3.5-5.0); BILIRUBIN,TOTAL 0.7 mg/dL (0.2-1.0); CREATININE 1.2 mg/dL (0.5-1.5); CRP QUANTITATIVE 80.2 mg/L (0.00-9.0); MAGNESIUM 2.6 mg/dL (1.80-2.40); POTASSIUM 3.6 mmol/L (3.5-5.1); TOTAL PROTEIN, SERUM 7.7 g/dL (6.0-8.3)
[2021-05-15] MEDS: ALBUTEROL INHALER 90MCG/INH IH SCH ×3 (06:02→18:25)
[2021-05-15] MEDS: INSULIN HUMULIN R 100 UNIT/ML 3ML SQ SCH ×4 (06:03→21:11)
[2021-05-15 08:11] VITALS: BP 142/84
[2021-05-15] MEDS: CEFTRIAXONE 1G VIAL IVP SCH ×2 (08:16→21:09)
[2021-05-15] MEDS: DOXYCYCLINE 100MG+NS 250ML IV SCH ×2 (08:16→21:09)
[2021-05-15] MEDS: SOLU-MEDROL 40MG VIAL IVP SCH ×3 (08:17→21:09)
[2021-05-15] MEDS: ZINC SULFATE 220 CAPSULE PO SCH (08:17)
[2021-05-15] MEDS: ASCORBIC ACID 500 MG TAB PO SCH ×2 (08:17→21:10)
[2021-05-15] MEDS: ENOXAPARIN SODIUM 60 MG/0.6 ML SQ SCH ×2 (08:17→21:08)
[2021-05-15] MEDS: 0.9% NACL 250ML 250 ML IV SCH ×2 (08:18→21:09)
[2021-05-15] MEDS: GUAIFENESIN-DM 200/20 MG 10 ML PO PRN (08:58)
[2021-05-15 12:20] VITALS: BP 137/64
[2021-05-15] MEDS: KCL 20 MEQ ERTAB PO PRN (15:26)
[2021-05-15 16:35] VITALS: BP 138/70
[2021-05-15 20:00] VITALS: BP 142/82
[2021-05-15 23:58] VITALS: BP 132/72
[2021-05-16] MEDS: ALBUTEROL INHALER 90MCG/INH IH SCH ×4 (00:10→16:15)
[2021-05-16 03:49] VITALS: BP 134/74
[2021-05-16 04:18] LABS: BASOPHILS % (AUTO) 0.2 % (0.0-5.0); HEMATOCRIT 42.6 % (42-54); LYMPHOCYTES % (AUTO) 4.8 % (21.0-51.0); MEAN CORPUSCULAR HEMOGLOBIN 30.5 pg (27.0-33.0); MEAN CORPUSCULAR HGB CONC 33.1 g/dL (32.0-36.0); MEAN CORPUSCULAR VOLUME 92.2 fL (79-99); NEUTROPHILS % (AUTO) 83.5 % (40.0-77.0); PLATELET COUNT (AUTO) 362 K/uL (130-400); RED BLOOD CELL COUNT(AUTO) 4.62 MIL/uL (4.50-6.20); RED CELL DISTRIBUTION WIDTH 11.9 % (11.0-15.5); WHITE BLOOD COUNT (AUTO) 19.4 K/uL (4.8-10.8)
[2021-05-16 04:52] LABS: ALBUMIN 2.6 g/dL (3.5-5.0); BILIRUBIN,TOTAL 0.6 mg/dL (0.2-1.0); POTASSIUM 3.5 mmol/L (3.5-5.1); TOTAL PROTEIN, SERUM 7.1 g/dL (6.0-8.3)
[2021-05-16] MEDS: INSULIN HUMULIN R 100 UNIT/ML 3ML SQ SCH ×4 (06:28→20:50)
[2021-05-16] MEDS ORDERED: REMDESIVIR (EUA) 520 200 MG in 0.9% NACL 250ML 250 ML IV SCH (07:00)
[2021-05-16] MEDS ORDERED: COMPOUND IV REFRIGERATED 1 EACH IVSOLN MISC PRN (07:00)
[2021-05-16 07:26] VITALS: BP 138/81
[2021-05-16] MEDS: DOXYCYCLINE 100MG+NS 250ML IV SCH ×2 (09:40→19:28)
[2021-05-16] MEDS: ZINC SULFATE 220 CAPSULE PO SCH (09:41)
[2021-05-16] MEDS: SOLU-MEDROL 40MG VIAL IVP SCH ×3 (09:41→20:44)
[2021-05-16] MEDS: 0.9% NACL 250ML 250 ML IV SCH ×2 (09:41→19:28)
[2021-05-16] MEDS: CEFTRIAXONE 1G VIAL IVP SCH ×2 (09:41→20:44)
[2021-05-16] MEDS: ASCORBIC ACID 500 MG TAB PO SCH ×4 (09:41→21:00)
[2021-05-16] MEDS: ENOXAPARIN SODIUM 60 MG/0.6 ML SQ SCH ×2 (09:42→20:47)
[2021-05-16 11:28] VITALS: BP 177/85
[2021-05-16 15:12] VITALS: BP 153/86
[2021-05-16 19:00] VITALS: BP 149/80
[2021-05-16] MEDS: KCL 20 MEQ ERTAB PO PRN (20:56)
[2021-05-16] MEDS ORDERED: INSULIN GLARGINE 100 UNITS/ML 10 ML VIAL SQ SCH (21:00)
[2021-05-17] VITALS (7 sets, daily range): BP systolic 120–160; BP diastolic 62–93
[2021-05-17] MEDS: ALBUTEROL INHALER 90MCG/INH IH SCH ×4 (00:12→17:07)
[2021-05-17 05:17] LABS: BASOPHILS % (AUTO) 0.4 % (0.0-5.0); HEMATOCRIT 45.7 % (42-54); LYMPHOCYTES % (AUTO) 6.2 % (21.0-51.0); MEAN CORPUSCULAR HEMOGLOBIN 30.1 pg (27.0-33.0); MEAN CORPUSCULAR HGB CONC 30.9 g/dL (32.0-36.0); MEAN CORPUSCULAR VOLUME 97.4 fL (79-99); MONOCYTES % (AUTO) 9.5 % (3.0-13.0); NEUTROPHILS % (AUTO) 81.3 % (40.0-77.0); PLATELET COUNT (AUTO) 333 K/uL (130-400); RED BLOOD CELL COUNT(AUTO) 4.69 MIL/uL (4.50-6.20); WHITE BLOOD COUNT (AUTO) 17.7 K/uL (4.8-10.8)
[2021-05-17 05:43] LABS: ALBUMIN 2.7 g/dL (3.5-5.0); BILIRUBIN,TOTAL 0.5 mg/dL (0.2-1.0); CRP QUANTITATIVE 20.6 mg/L (0.00-9.0); MAGNESIUM 2.6 mg/dL (1.80-2.40); POTASSIUM 3.8 mmol/L (3.5-5.1); TOTAL PROTEIN, SERUM 6.8 g/dL (6.0-8.3)
[2021-05-17] MEDS: REMDESIVIR LABS MISC SCH (05:53)
[2021-05-17] MEDS: INSULIN HUMULIN R 100 UNIT/ML 3ML SQ SCH ×6 (06:14→20:40)
[2021-05-17] MEDS: ZINC SULFATE 220 CAPSULE PO SCH (08:31)
[2021-05-17] MEDS: CEFTRIAXONE 1G VIAL IVP SCH ×2 (08:32→20:39)
[2021-05-17] MEDS: ASCORBIC ACID 500 MG TAB PO SCH ×3 (08:32→20:38)
[2021-05-17] MEDS: SOLU-MEDROL 40MG VIAL IVP SCH ×3 (08:32→20:39)
[2021-05-17] MEDS: DOXYCYCLINE 100MG+NS 250ML IV SCH ×2 (08:32→20:38)
[2021-05-17] MEDS: 0.9% NACL 250ML 250 ML IV SCH ×2 (08:36→20:38)
[2021-05-17] MEDS: ENOXAPARIN SODIUM 60 MG/0.6 ML SQ SCH ×2 (08:37→20:39)
[2021-05-17] MEDS: REMDESIVIR (EUA) 520 100 MG in 0.9% NACL 250ML 250 ML IV SCH (12:10)
[2021-05-17] MEDS: FUROSEMIDE 20MG VIAL IV SCH (14:45)
[2021-05-17] MEDS ORDERED: INSULIN GLARGINE 100 UNITS/ML 10 ML VIAL SQ SCH (21:00)
[2021-05-18 03:56] VITALS: BP 127/70
[2021-05-18 05:09] LABS: BASOPHILS % (AUTO) 0.7 % (0.0-5.0); HEMATOCRIT 44.3 % (42-54); LYMPHOCYTES % (AUTO) 12.1 % (21.0-51.0); MEAN CORPUSCULAR HEMOGLOBIN 30.2 pg (27.0-33.0); MEAN CORPUSCULAR HGB CONC 32.1 g/dL (32.0-36.0); MEAN CORPUSCULAR VOLUME 94.3 fL (79-99); MONOCYTES % (AUTO) 9.9 % (3.0-13.0); NEUTROPHILS % (AUTO) 71.9 % (40.0-77.0); NUCLEATED RED BLOOD CELLS 0.1 % (0.0-0.19); PLATELET COUNT (AUTO) 409 K/uL (130-400); WHITE BLOOD COUNT (AUTO) 16.2 K/uL (4.8-10.8)
[2021-05-18] MEDS: REMDESIVIR LABS MISC SCH (05:15)
[2021-05-18] MEDS: ALBUTEROL INHALER 90MCG/INH IH SCH ×4 (05:17→16:54)
[2021-05-18] MEDS: INSULIN HUMULIN R 100 UNIT/ML 3ML SQ SCH ×7 (06:00→20:56)
[2021-05-18 06:24] LABS: ALBUMIN 2.6 g/dL (3.5-5.0); BILIRUBIN,TOTAL 0.6 mg/dL (0.2-1.0); CREATININE 0.8 mg/dL (0.5-1.5); CRP QUANTITATIVE 11.8 mg/L (0.00-9.0); POTASSIUM 3.4 mmol/L (3.5-5.1); TOTAL PROTEIN, SERUM 6.4 g/dL (6.0-8.3)
[2021-05-18 07:00] VITALS: BP 130/76
[2021-05-18] MEDS: ASCORBIC ACID 500 MG TAB PO SCH ×3 (08:28→20:55)
[2021-05-18] MEDS: DOXYCYCLINE 100MG+NS 250ML IV SCH (08:40)
[2021-05-18] MEDS: 0.9% NACL 250ML 250 ML IV SCH (08:40)
[2021-05-18] MEDS: CEFTRIAXONE 1G VIAL IVP SCH (08:42)
[2021-05-18] MEDS: ENOXAPARIN SODIUM 60 MG/0.6 ML SQ SCH ×2 (08:42→20:55)
[2021-05-18] MEDS: SOLU-MEDROL 40MG VIAL IVP SCH ×3 (08:43→20:55)
[2021-05-18] MEDS: ZINC SULFATE 220 CAPSULE PO SCH (08:43)
[2021-05-18] MEDS: FUROSEMIDE 20MG VIAL IV SCH (08:43)
[2021-05-18] MEDS: KCL 20 MEQ ERTAB PO PRN (08:52)
[2021-05-18 11:00] VITALS: BP 170/83
[2021-05-18] MEDS: REMDESIVIR (EUA) 520 100 MG in 0.9% NACL 250ML 250 ML IV SCH (12:30)
[2021-05-18 16:00] VITALS: BP 147/82
[2021-05-18 19:48] VITALS: BP 140/73
[2021-05-18] MEDS: INSULIN GLARGINE 100 UNITS/ML 10 ML VIAL SQ SCH (20:56)
[2021-05-18 23:15] VITALS: BP 133/67
[2021-05-19] MEDS: ALBUTEROL INHALER 90MCG/INH IH SCH ×4 (00:49→17:08)
[2021-05-19 04:00] VITALS: BP 123/89
[2021-05-19 05:20] LABS: BASOPHILS % (AUTO) 0.1 % (0.0-5.0); HEMATOCRIT 46.1 % (42-54); LYMPHOCYTES % (AUTO) 7.8 % (21.0-51.0); MEAN CORPUSCULAR HEMOGLOBIN 30.3 pg (27.0-33.0); MEAN CORPUSCULAR HGB CONC 32.1 g/dL (32.0-36.0); MEAN CORPUSCULAR VOLUME 94.3 fL (79-99); MONOCYTES % (AUTO) 8.3 % (3.0-13.0); NUCLEATED RED BLOOD CELLS 0.1 % (0.0-0.19); PLATELET COUNT (AUTO) 385 K/uL (130-400); RED BLOOD CELL COUNT(AUTO) 4.89 MIL/uL (4.50-6.20); RED CELL DISTRIBUTION WIDTH 12.1 % (11.0-15.5); WHITE BLOOD COUNT (AUTO) 17.8 K/uL (4.8-10.8)
[2021-05-19] MEDS: REMDESIVIR LABS MISC SCH (05:48)
[2021-05-19 05:49] LABS: ALBUMIN 2.8 g/dL (3.5-5.0); BILIRUBIN,TOTAL 0.8 mg/dL (0.2-1.0); CRP QUANTITATIVE 9.5 mg/L (0.00-9.0); POTASSIUM 3.6 mmol/L (3.5-5.1); TOTAL PROTEIN, SERUM 6.7 g/dL (6.0-8.3)
[2021-05-19] MEDS: INSULIN HUMULIN R 100 UNIT/ML 3ML SQ SCH ×7 (06:21→20:35)
[2021-05-19] MEDS: KCL 20 MEQ ERTAB PO PRN ×2 (06:22→09:15)
[2021-05-19 07:00] VITALS: BP 143/61
[2021-05-19] MEDS: SOLU-MEDROL 40MG VIAL IVP SCH ×3 (09:12→20:02)
[2021-05-19] MEDS: ZINC SULFATE 220 CAPSULE PO SCH (09:12)
[2021-05-19] MEDS: ASCORBIC ACID 500 MG TAB PO SCH ×3 (09:12→20:02)
[2021-05-19] MEDS: FUROSEMIDE 20MG VIAL IV SCH (09:12)
[2021-05-19] MEDS: ENOXAPARIN SODIUM 60 MG/0.6 ML SQ SCH ×2 (09:13→20:03)
[2021-05-19 11:00] VITALS: BP 132/76
[2021-05-19] MEDS: REMDESIVIR (EUA) 520 100 MG in 0.9% NACL 250ML 250 ML IV SCH (11:59)
[2021-05-19 15:00] VITALS: BP 132/83
[2021-05-19 19:42] VITALS: BP 131/74
[2021-05-19] MEDS: INSULIN GLARGINE 100 UNITS/ML 10 ML VIAL SQ SCH (20:36)
[2021-05-19 23:09] VITALS: BP 105/44
[2021-05-20] MEDS: ALBUTEROL INHALER 90MCG/INH IH SCH ×4 (00:22→17:10)
[2021-05-20 03:15] VITALS: BP 137/63
[2021-05-20 04:33] LABS: BASOPHILS % (AUTO) 0.1 % (0.0-5.0); EOSINOPHILS % (AUTO) 0.1 % (0.0-8.0); HEMATOCRIT 48.9 % (42-54); LYMPHOCYTES % (AUTO) 7.4 % (21.0-51.0); MEAN CORPUSCULAR HEMOGLOBIN 30.2 pg (27.0-33.0); MEAN CORPUSCULAR HGB CONC 31.9 g/dL (32.0-36.0); MEAN CORPUSCULAR VOLUME 94.8 fL (79-99); MONOCYTES % (AUTO) 8.8 % (3.0-13.0); NEUTROPHILS % (AUTO) 74.3 % (40.0-77.0); NUCLEATED RED BLOOD CELLS 0.1 % (0.0-0.19); PLATELET COUNT (AUTO) 420 K/uL (130-400); RED BLOOD CELL COUNT(AUTO) 5.16 MIL/uL (4.50-6.20); WHITE BLOOD COUNT (AUTO) 18.8 K/uL (4.8-10.8)
[2021-05-20 04:49] LABS: ALBUMIN 2.9 g/dL (3.5-5.0); CREATININE 0.9 mg/dL (0.5-1.5); CRP QUANTITATIVE 4.2 mg/L (0.00-9.0); POTASSIUM 4.6 mmol/L (3.5-5.1)
[2021-05-20] MEDS: REMDESIVIR LABS MISC SCH (06:00)
[2021-05-20] MEDS: INSULIN HUMULIN R 100 UNIT/ML 3ML SQ SCH ×7 (06:18→21:11)
[2021-05-20 08:00] VITALS: BP 144/79
[2021-05-20] MEDS: ASCORBIC ACID 500 MG TAB PO SCH ×3 (08:12→21:07)
[2021-05-20] MEDS: ZINC SULFATE 220 CAPSULE PO SCH (08:12)
[2021-05-20] MEDS: ENOXAPARIN SODIUM 60 MG/0.6 ML SQ SCH ×2 (08:12→21:08)
[2021-05-20] MEDS: FUROSEMIDE 20MG VIAL IV SCH (08:13)
[2021-05-20] MEDS: SOLU-MEDROL 40MG VIAL IVP SCH ×2 (08:13→14:24)
[2021-05-20 12:00] VITALS: BP 124/85
[2021-05-20] MEDS: REMDESIVIR (EUA) 520 100 MG in 0.9% NACL 250ML 250 ML IV SCH (12:11)
[2021-05-20 16:00] VITALS: BP 122/86
[2021-05-20 21:04] VITALS: BP 106/44
[2021-05-20] MEDS: BARICITINIB (EUA) 2 MG TABLET PO SCH (21:07)
[2021-05-20] MEDS: INSULIN GLARGINE 100 UNITS/ML 10 ML VIAL SQ SCH (21:09)
[2021-05-21 00:04] VITALS: BP 112/65
[2021-05-21] MEDS: SOLU-MEDROL 40MG VIAL IVP SCH ×2 (02:59→13:54)
[2021-05-21 04:09] VITALS: BP 158/80
[2021-05-21 05:43] LABS: BASOPHILS % (AUTO) 0.1 % (0.0-5.0); EOSINOPHILS % (AUTO) 1.3 % (0.0-8.0); HEMATOCRIT 48.8 % (42-54); LYMPHOCYTES % (AUTO) 9.3 % (21.0-51.0); MEAN CORPUSCULAR HGB CONC 31.1 g/dL (32.0-36.0); MEAN CORPUSCULAR VOLUME 96.4 fL (79-99); MONOCYTES % (AUTO) 8.7 % (3.0-13.0); NEUTROPHILS % (AUTO) 71.5 % (40.0-77.0); PLATELET COUNT (AUTO) 386 K/uL (130-400); RED BLOOD CELL COUNT(AUTO) 5.06 MIL/uL (4.50-6.20); RED CELL DISTRIBUTION WIDTH 12.2 % (11.0-15.5); WHITE BLOOD COUNT (AUTO) 19.6 K/uL (4.8-10.8)
[2021-05-21] MEDS: INSULIN HUMULIN R 100 UNIT/ML 3ML SQ SCH ×7 (05:43→21:28)
[2021-05-21 06:04] LABS: ALBUMIN 2.7 g/dL (3.5-5.0); BILIRUBIN,TOTAL 0.7 mg/dL (0.2-1.0); CREATININE 0.9 mg/dL (0.5-1.5); POTASSIUM 4.1 mmol/L (3.5-5.1); TOTAL PROTEIN, SERUM 6.4 g/dL (6.0-8.3)
[2021-05-21 07:50] VITALS: BP 150/78
[2021-05-21] MEDS: FUROSEMIDE 20MG VIAL IV SCH (10:13)
[2021-05-21] MEDS: BARICITINIB (EUA) 2 MG TABLET PO SCH (10:14)
[2021-05-21] MEDS: ASCORBIC ACID 500 MG TAB PO SCH ×3 (10:14→21:23)
[2021-05-21] MEDS: ZINC SULFATE 220 CAPSULE PO SCH (10:16)
[2021-05-21] MEDS: ENOXAPARIN SODIUM 60 MG/0.6 ML SQ SCH ×2 (10:20→21:25)
[2021-05-21 12:22] VITALS: BP 144/74
[2021-05-21 14:09] VITALS: BP 113/60
[2021-05-21 20:42] VITALS: BP 140/68
[2021-05-21] MEDS: INSULIN GLARGINE 100 UNITS/ML 10 ML VIAL SQ SCH (21:27)
[2021-05-21] MEDS: ALBUTEROL INHALER 90MCG/INH IH SCH ×2 (23:06)
[2021-05-22] VITALS (7 sets, daily range): BP systolic 109–143; BP diastolic 49–80
[2021-05-22] MEDS: SOLU-MEDROL 40MG VIAL IVP SCH ×2 (01:15→13:27)
[2021-05-22 04:53] LABS: EOSINOPHILS % (AUTO) 1.2 % (0.0-8.0); HEMATOCRIT 48.2 % (42-54); LYMPHOCYTES % (AUTO) 6.4 % (21.0-51.0); MEAN CORPUSCULAR HEMOGLOBIN 30.1 pg (27.0-33.0); MEAN CORPUSCULAR VOLUME 94.3 fL (79-99); MONOCYTES % (AUTO) 6.7 % (3.0-13.0); NEUTROPHILS % (AUTO) 77.1 % (40.0-77.0); PLATELET COUNT (AUTO) 363 K/uL (130-400); RED BLOOD CELL COUNT(AUTO) 5.11 MIL/uL (4.50-6.20); RED CELL DISTRIBUTION WIDTH 12.2 % (11.0-15.5); WHITE BLOOD COUNT (AUTO) 25.6 K/uL (4.8-10.8)
[2021-05-22 05:08] LABS: ALBUMIN 2.8 g/dL (3.5-5.0); BILIRUBIN,TOTAL 0.7 mg/dL (0.2-1.0); CREATININE 0.9 mg/dL (0.5-1.5); POTASSIUM 4.5 mmol/L (3.5-5.1); TOTAL PROTEIN, SERUM 6.4 g/dL (6.0-8.3)
[2021-05-22] MEDS: ALBUTEROL INHALER 90MCG/INH IH SCH ×4 (05:59→23:43)
[2021-05-22] MEDS: INSULIN HUMULIN R 100 UNIT/ML 3ML SQ SCH ×7 (06:23→21:21)
[2021-05-22] MEDS: ASCORBIC ACID 500 MG TAB PO SCH ×3 (10:01→21:20)
[2021-05-22] MEDS: ZINC SULFATE 220 CAPSULE PO SCH (10:01)
[2021-05-22] MEDS: ENOXAPARIN SODIUM 60 MG/0.6 ML SQ SCH ×2 (10:01→21:20)
[2021-05-22] MEDS: FUROSEMIDE 20MG VIAL IV SCH (10:04)
[2021-05-22] MEDS: BARICITINIB (EUA) 2 MG TABLET PO SCH (10:56)
[2021-05-22] MEDS: FLUCONAZOLE 200 MG/NS 100 ML 100 ML IV SCH (13:27)
[2021-05-22] MEDS: INSULIN GLARGINE 100 UNITS/ML 10 ML VIAL SQ SCH (21:22)
[2021-05-23] MEDS: SOLU-MEDROL 40MG VIAL IVP SCH ×2 (02:45→14:04)
[2021-05-23 03:56] VITALS: BP 116/71
[2021-05-23 04:24] LABS: BASOPHILS % (AUTO) 0.1 % (0.0-5.0); EOSINOPHILS % (AUTO) 0.6 % (0.0-8.0); HEMATOCRIT 50.9 % (42-54); LYMPHOCYTES % (AUTO) 7.1 % (21.0-51.0); MEAN CORPUSCULAR HEMOGLOBIN 30.7 pg (27.0-33.0); MEAN CORPUSCULAR HGB CONC 31.8 g/dL (32.0-36.0); MEAN CORPUSCULAR VOLUME 96.6 fL (79-99); MONOCYTES % (AUTO) 7.2 % (3.0-13.0); NEUTROPHILS % (AUTO) 77.9 % (40.0-77.0); PLATELET COUNT (AUTO) 353 K/uL (130-400); RED BLOOD CELL COUNT(AUTO) 5.27 MIL/uL (4.50-6.20); RED CELL DISTRIBUTION WIDTH 12.4 % (11.0-15.5); WHITE BLOOD COUNT (AUTO) 29.6 K/uL (4.8-10.8)
[2021-05-23 04:39] LABS: ALBUMIN 2.9 g/dL (3.5-5.0); BILIRUBIN,TOTAL 0.7 mg/dL (0.2-1.0); CREATININE 0.9 mg/dL (0.5-1.5); POTASSIUM 4.4 mmol/L (3.5-5.1); TOTAL PROTEIN, SERUM 6.5 g/dL (6.0-8.3)
[2021-05-23] MEDS: ALBUTEROL INHALER 90MCG/INH IH SCH ×3 (05:03→17:25)
[2021-05-23] MEDS: INSULIN HUMULIN R 100 UNIT/ML 3ML SQ SCH ×7 (06:23→20:07)
[2021-05-23 08:00] VITALS: BP 106/81
[2021-05-23] MEDS: FUROSEMIDE 20MG VIAL IV SCH (08:25)
[2021-05-23] MEDS: ZINC SULFATE 220 CAPSULE PO SCH (08:25)
[2021-05-23] MEDS: ENOXAPARIN SODIUM 60 MG/0.6 ML SQ SCH ×2 (08:26→20:06)
[2021-05-23] MEDS: FLUCONAZOLE 200 MG/NS 100 ML 100 ML IV SCH (08:26)
[2021-05-23] MEDS: ASCORBIC ACID 500 MG TAB PO SCH ×3 (08:28→20:05)
[2021-05-23] MEDS: BARICITINIB (EUA) 2 MG TABLET PO SCH (09:13)
[2021-05-23] MEDS: CEFTRIAXONE 1G VIAL IVP SCH (11:20)
[2021-05-23 12:00] VITALS: BP 142/84
[2021-05-23 16:00] VITALS: BP 152/82
[2021-05-23 19:13] VITALS: BP 118/85
[2021-05-23] MEDS: INSULIN GLARGINE 100 UNITS/ML 10 ML VIAL SQ SCH (20:08)
[2021-05-24] VITALS (8 sets, daily range): BP systolic 92–139; BP diastolic 52–90
[2021-05-24] MEDS: ALBUTEROL INHALER 90MCG/INH IH SCH ×4 (00:14→18:35)
[2021-05-24] MEDS: SOLU-MEDROL 40MG VIAL IVP SCH ×2 (01:40→16:18)
[2021-05-24 05:00] LABS: BASOPHILS % (AUTO) 0.5 % (0.0-5.0); EOSINOPHILS % (AUTO) 0.1 % (0.0-8.0); HEMATOCRIT 49.2 % (42-54); LYMPHOCYTES % (AUTO) 4.8 % (21.0-51.0); MEAN CORPUSCULAR HEMOGLOBIN 30.6 pg (27.0-33.0); MEAN CORPUSCULAR HGB CONC 32.5 g/dL (32.0-36.0); MEAN CORPUSCULAR VOLUME 94.1 fL (79-99); MONOCYTES % (AUTO) 5.7 % (3.0-13.0); PLATELET COUNT (AUTO) 328 K/uL (130-400); RED BLOOD CELL COUNT(AUTO) 5.23 MIL/uL (4.50-6.20); RED CELL DISTRIBUTION WIDTH 12.5 % (11.0-15.5)
[2021-05-24 05:18] LABS: ALBUMIN 2.8 g/dL (3.5-5.0); BILIRUBIN,TOTAL 0.6 mg/dL (0.2-1.0); CREATININE 0.9 mg/dL (0.5-1.5); POTASSIUM 4.9 mmol/L (3.5-5.1); TOTAL PROTEIN, SERUM 6.6 g/dL (6.0-8.3)
[2021-05-24 05:22] LABS: WHITE BLOOD COUNT (AUTO) 33.6 K/uL (4.8-10.8)
[2021-05-24] MEDS: INSULIN HUMULIN R 100 UNIT/ML 3ML SQ SCH ×7 (06:34→21:07)
[2021-05-24 07:26] LABS: LYMPHOCYTES % (MANUAL) 2 % (22-44); MONOCYTES % (MANUAL) 5 % (2-9); SEGMENTED NEUTROPHILS % 93 % (40-70)
[2021-05-24 07:27] LABS: MAN.DIFF COMMENT-IMPRESSION MANUAL DIFFERENTIAL; PLATELET MORPHOLOGY COMMENT ADEQUATE
[2021-05-24] MEDS: FUROSEMIDE 20MG VIAL IV SCH (08:49)
[2021-05-24] MEDS: ASCORBIC ACID 500 MG TAB PO SCH ×3 (08:49→21:06)
[2021-05-24] MEDS: BARICITINIB (EUA) 2 MG TABLET PO SCH (08:50)
[2021-05-24] MEDS: ZINC SULFATE 220 CAPSULE PO SCH (08:50)
[2021-05-24] MEDS: ENOXAPARIN SODIUM 60 MG/0.6 ML SQ SCH ×2 (08:50→21:06)
[2021-05-24] MEDS: CEFTRIAXONE 1G VIAL IVP SCH (08:51)
[2021-05-24] MEDS: INSULIN GLARGINE 100 UNITS/ML 10 ML VIAL SQ SCH (21:07)
[2021-05-25] MEDS: ALBUTEROL INHALER 90MCG/INH IH SCH ×5 (00:03→23:09)
[2021-05-25] MEDS: SOLU-MEDROL 40MG VIAL IVP SCH ×2 (02:23→14:22)
[2021-05-25 03:38] VITALS: BP 126/79
[2021-05-25 04:44] LABS: BASOPHILS % (AUTO) 0.5 % (0.0-5.0); EOSINOPHILS % (AUTO) 0.1 % (0.0-8.0); HEMATOCRIT 48.7 % (42-54); LYMPHOCYTES % (AUTO) 4.3 % (21.0-51.0); MEAN CORPUSCULAR HEMOGLOBIN 30.3 pg (27.0-33.0); MEAN CORPUSCULAR VOLUME 94.6 fL (79-99); MONOCYTES % (AUTO) 5.3 % (3.0-13.0); NEUTROPHILS % (AUTO) 85.5 % (40.0-77.0); PLATELET COUNT (AUTO) 316 K/uL (130-400); RED BLOOD CELL COUNT(AUTO) 5.15 MIL/uL (4.50-6.20); RED CELL DISTRIBUTION WIDTH 12.6 % (11.0-15.5); WHITE BLOOD COUNT (AUTO) 29.9 K/uL (4.8-10.8)
[2021-05-25 05:03] LABS: ALBUMIN 2.9 g/dL (3.5-5.0); BILIRUBIN,TOTAL 0.6 mg/dL (0.2-1.0); POTASSIUM 4.7 mmol/L (3.5-5.1); TOTAL PROTEIN, SERUM 6.5 g/dL (6.0-8.3)
[2021-05-25] MEDS: INSULIN HUMULIN R 100 UNIT/ML 3ML SQ SCH ×7 (05:51→20:37)
[2021-05-25 08:00] VITALS: BP 123/73
[2021-05-25] MEDS: BARICITINIB (EUA) 2 MG TABLET PO SCH (09:48)
[2021-05-25] MEDS: ENOXAPARIN SODIUM 60 MG/0.6 ML SQ SCH ×2 (09:49→20:22)
[2021-05-25] MEDS: CEFTRIAXONE 1G VIAL IVP SCH (09:49)
[2021-05-25] MEDS: ZINC SULFATE 220 CAPSULE PO SCH (09:49)
[2021-05-25] MEDS: ASCORBIC ACID 500 MG TAB PO SCH ×3 (09:49→20:22)
[2021-05-25 12:00] VITALS: BP 160/91
[2021-05-25 16:00] VITALS: BP 135/74
[2021-05-25 19:30] VITALS: BP 140/81
[2021-05-25] MEDS: INSULIN GLARGINE 100 UNITS/ML 10 ML VIAL SQ SCH (20:24)
[2021-05-26] VITALS (7 sets, daily range): BP systolic 111–137; BP diastolic 61–87
[2021-05-26] MEDS: SOLU-MEDROL 40MG VIAL IVP SCH ×2 (01:17→14:10)
[2021-05-26 04:42] LABS: BASOPHILS % (AUTO) 0.5 % (0.0-5.0); EOSINOPHILS % (AUTO) 0.2 % (0.0-8.0); HEMATOCRIT 49.2 % (42-54); LYMPHOCYTES % (AUTO) 4.6 % (21.0-51.0); MEAN CORPUSCULAR HGB CONC 32.1 g/dL (32.0-36.0); MEAN CORPUSCULAR VOLUME 96.5 fL (79-99); MONOCYTES % (AUTO) 6.3 % (3.0-13.0); NEUTROPHILS % (AUTO) 85.1 % (40.0-77.0); PLATELET COUNT (AUTO) 300 K/uL (130-400); RED CELL DISTRIBUTION WIDTH 12.8 % (11.0-15.5)
[2021-05-26 04:45] LABS: WHITE BLOOD COUNT (AUTO) 32.2 K/uL (4.8-10.8)
[2021-05-26 04:54] LABS: BILIRUBIN,TOTAL 0.7 mg/dL (0.2-1.0); CREATININE 0.9 mg/dL (0.5-1.5); POTASSIUM 4.7 mmol/L (3.5-5.1); TOTAL PROTEIN, SERUM 6.5 g/dL (6.0-8.3)
[2021-05-26 05:12] LABS: BAND NEUTROPHILS % (MANUAL) 4 % (0-2); LYMPHOCYTES % (MANUAL) 5 % (22-44); MAN.DIFF COMMENT-IMPRESSION MANUAL DIFFERENTIAL; MONOCYTES % (MANUAL) 6 % (2-9); SEGMENTED NEUTROPHILS % 85 % (40-70)
[2021-05-26] MEDS: ALBUTEROL INHALER 90MCG/INH IH SCH ×4 (06:00→23:31)
[2021-05-26] MEDS: INSULIN HUMULIN R 100 UNIT/ML 3ML SQ SCH ×7 (06:04→21:02)
[2021-05-26] MEDS: ASCORBIC ACID 500 MG TAB PO SCH ×3 (07:52→21:00)
[2021-05-26] MEDS: ZINC SULFATE 220 CAPSULE PO SCH (07:52)
[2021-05-26] MEDS: CEFTRIAXONE 1G VIAL IVP SCH (07:52)
[2021-05-26] MEDS: ENOXAPARIN SODIUM 60 MG/0.6 ML SQ SCH ×2 (07:53→21:00)
[2021-05-26] MEDS: BARICITINIB (EUA) 2 MG TABLET PO SCH (09:07)
[2021-05-26] MEDS: INSULIN GLARGINE 100 UNITS/ML 10 ML VIAL SQ SCH (21:01)
[2021-05-27] MEDS: SOLU-MEDROL 40MG VIAL IVP SCH ×2 (01:28→14:32)
[2021-05-27 04:03] VITALS: BP 130/73
[2021-05-27 05:04] LABS: LACTATE DEHYDROGENASE 818 U/L (81-234)
[2021-05-27 05:19] LABS: CRP QUANTITATIVE < 2.00 mg/L (0.00-9.0)
[2021-05-27] MEDS: ALBUTEROL INHALER 90MCG/INH IH SCH ×3 (06:14→16:24)
[2021-05-27] MEDS: INSULIN HUMULIN R 100 UNIT/ML 3ML SQ SCH ×7 (06:15→20:19)
[2021-05-27 07:34] VITALS: BP 143/83
[2021-05-27] MEDS: CEFTRIAXONE 1G VIAL IVP SCH (09:07)
[2021-05-27] MEDS: ASCORBIC ACID 500 MG TAB PO SCH ×3 (09:08→20:18)
[2021-05-27] MEDS: BARICITINIB (EUA) 2 MG TABLET PO SCH (09:08)
[2021-05-27] MEDS: ZINC SULFATE 220 CAPSULE PO SCH (09:08)
[2021-05-27] MEDS: ENOXAPARIN SODIUM 60 MG/0.6 ML SQ SCH (09:08)
[2021-05-27 09:19] LABS: BASOPHILS % (AUTO) 0.4 % (0.0-5.0); EOSINOPHILS % (AUTO) 0.4 % (0.0-8.0); HEMATOCRIT 48.2 % (42-54); LYMPHOCYTES % (AUTO) 5.2 % (21.0-51.0); MEAN CORPUSCULAR HEMOGLOBIN 30.9 pg (27.0-33.0); MEAN CORPUSCULAR VOLUME 96.8 fL (79-99); MONOCYTES % (AUTO) 6.2 % (3.0-13.0); NEUTROPHILS % (AUTO) 84.9 % (40.0-77.0); PLATELET COUNT (AUTO) 271 K/uL (130-400); RED BLOOD CELL COUNT(AUTO) 4.98 MIL/uL (4.50-6.20); RED CELL DISTRIBUTION WIDTH 12.9 % (11.0-15.5); WHITE BLOOD COUNT (AUTO) 27.9 K/uL (4.8-10.8)
[2021-05-27 09:35] LABS: BILIRUBIN,TOTAL 0.8 mg/dL (0.2-1.0); CREATININE 0.9 mg/dL (0.5-1.5); POTASSIUM 4.7 mmol/L (3.5-5.1); TOTAL PROTEIN, SERUM 6.1 g/dL (6.0-8.3)
[2021-05-27 11:56] VITALS: BP 131/80
[2021-05-27 16:14] VITALS: BP 111/78
[2021-05-27] MEDS ORDERED: FUROSEMIDE 20MG VIAL IV ONE (17:30)
[2021-05-27 19:45] VITALS: BP 131/87
[2021-05-27] MEDS: INSULIN GLARGINE 100 UNITS/ML 10 ML VIAL SQ SCH (20:19)
[2021-05-28] VITALS (8 sets, daily range): BP systolic 118–147; BP diastolic 59–95
[2021-05-28] MEDS: ALBUTEROL INHALER 90MCG/INH IH SCH ×5 (00:24→23:42)
[2021-05-28] MEDS: SOLU-MEDROL 40MG VIAL IVP SCH ×2 (01:15→14:35)
[2021-05-28 06:04] LABS: BASOPHILS % (AUTO) 0.4 % (0.0-5.0); EOSINOPHILS % (AUTO) 0.1 % (0.0-8.0); HEMATOCRIT 46.4 % (42-54); LYMPHOCYTES % (AUTO) 4.4 % (21.0-51.0); MEAN CORPUSCULAR HEMOGLOBIN 30.8 pg (27.0-33.0); MEAN CORPUSCULAR HGB CONC 31.9 g/dL (32.0-36.0); MEAN CORPUSCULAR VOLUME 96.7 fL (79-99); MONOCYTES % (AUTO) 6.3 % (3.0-13.0); NEUTROPHILS % (AUTO) 85.6 % (40.0-77.0); PLATELET COUNT (AUTO) 277 K/uL (130-400); RED CELL DISTRIBUTION WIDTH 12.8 % (11.0-15.5)
[2021-05-28] MEDS: INSULIN HUMULIN R 100 UNIT/ML 3ML SQ SCH ×7 (06:18→20:02)
[2021-05-28] MEDS: CEFTRIAXONE 1G VIAL IVP SCH (08:24)
[2021-05-28] MEDS: ZINC SULFATE 220 CAPSULE PO SCH (08:25)
[2021-05-28] MEDS: ASCORBIC ACID 500 MG TAB PO SCH ×3 (08:25→20:01)
[2021-05-28] MEDS: INSULIN GLARGINE 100 UNITS/ML 10 ML VIAL SQ SCH (20:02)
[2021-05-29] MEDS: SOLU-MEDROL 40MG VIAL IVP SCH ×2 (01:51→14:03)
[2021-05-29 03:50] VITALS: BP 129/72
[2021-05-29] MEDS: ALBUTEROL INHALER 90MCG/INH IH SCH ×4 (06:23→23:32)
[2021-05-29] MEDS: INSULIN HUMULIN R 100 UNIT/ML 3ML SQ SCH ×7 (06:24→20:10)
[2021-05-29 07:02] LABS: BASOPHILS % (AUTO) 0.4 % (0.0-5.0); HEMATOCRIT 45.9 % (42-54); LYMPHOCYTES % (AUTO) 3.2 % (21.0-51.0); MEAN CORPUSCULAR HEMOGLOBIN 30.5 pg (27.0-33.0); MEAN CORPUSCULAR HGB CONC 32.2 g/dL (32.0-36.0); MEAN CORPUSCULAR VOLUME 94.4 fL (79-99); MONOCYTES % (AUTO) 4.9 % (3.0-13.0); NEUTROPHILS % (AUTO) 88.7 % (40.0-77.0); PLATELET COUNT (AUTO) 298 K/uL (130-400); RED BLOOD CELL COUNT(AUTO) 4.86 MIL/uL (4.50-6.20)
[2021-05-29 07:09] LABS: CARBON DIOXIDE 28 mmol/L (21-32); CHLORIDE 103 mmol/L (101-111); CREATININE 0.7 mg/dL (0.5-1.5); GLOMERULAR FILTR. RATE CALC 121 mL/min (>60); GLUCOSE,RANDOM 199 mg/dL (70-105); POTASSIUM 4.5 mmol/L (3.5-5.1); SODIUM SERUM 137 mmol/L (136-145); UREA NITROGEN, BLOOD 30 mg/dL (7-18)
[2021-05-29 07:14] LABS: CRP QUANTITATIVE < 2.00 mg/L (0.00-9.0)
[2021-05-29 07:17] LABS: WHITE BLOOD COUNT (AUTO) 33.4 K/uL (4.8-10.8)
[2021-05-29 07:33] LABS: LYMPHOCYTES % (MANUAL) 4 % (22-44); MAN.DIFF COMMENT-IMPRESSION MANUAL DIFFERENTIAL; MONOCYTES % (MANUAL) 2 % (2-9); PLATELET MORPHOLOGY COMMENT ADEQUATE; SEGMENTED NEUTROPHILS % 94 % (40-70)
[2021-05-29 08:00] VITALS: BP 122/75
[2021-05-29] MEDS ORDERED: ENOXAPARIN SODIUM 30 MG/0.3 ML SQ SCH (09:00)
[2021-05-29] MEDS ORDERED: ENOXAPARIN SODIUM 40 MG/0.4 ML SYRINGE SQ SCH (09:00)
[2021-05-29] MEDS: ASCORBIC ACID 500 MG TAB PO SCH ×3 (09:06→20:08)
[2021-05-29] MEDS: CEFTRIAXONE 1G VIAL IVP SCH (09:06)
[2021-05-29] MEDS: ZINC SULFATE 220 CAPSULE PO SCH (09:06)
[2021-05-29 12:00] VITALS: BP 136/80
[2021-05-29 16:00] VITALS: BP 130/69
[2021-05-29 19:18] VITALS: BP 129/70
[2021-05-29] MEDS: INSULIN GLARGINE 100 UNITS/ML 10 ML VIAL SQ SCH (20:11)
[2021-05-29 23:31] VITALS: BP 144/71
[2021-05-30] MEDS: SOLU-MEDROL 40MG VIAL IVP SCH ×2 (01:32→13:13)
[2021-05-30 03:30] VITALS: BP 128/71
[2021-05-30] MEDS: ALBUTEROL INHALER 90MCG/INH IH SCH ×4 (05:49→23:50)
[2021-05-30 06:08] LABS: BASOPHILS % (AUTO) 0.4 % (0.0-5.0); EOSINOPHILS % (AUTO) 0.1 % (0.0-8.0); HEMATOCRIT 44.1 % (42-54); LYMPHOCYTES % (AUTO) 3.3 % (21.0-51.0); MEAN CORPUSCULAR HEMOGLOBIN 30.8 pg (27.0-33.0); MEAN CORPUSCULAR VOLUME 96.3 fL (79-99); MONOCYTES % (AUTO) 5.7 % (3.0-13.0); NEUTROPHILS % (AUTO) 87.3 % (40.0-77.0); PLATELET COUNT (AUTO) 256 K/uL (130-400); RED BLOOD CELL COUNT(AUTO) 4.58 MIL/uL (4.50-6.20); RED CELL DISTRIBUTION WIDTH 13.2 % (11.0-15.5); WHITE BLOOD COUNT (AUTO) 26.7 K/uL (4.8-10.8)
[2021-05-30] MEDS: INSULIN HUMULIN R 100 UNIT/ML 3ML SQ SCH ×7 (06:17→20:15)
[2021-05-30 06:57] LABS: CREATININE 0.6 mg/dL (0.5-1.5); CRP QUANTITATIVE 18.8 mg/L (0.00-9.0); POTASSIUM 4.6 mmol/L (3.5-5.1)
[2021-05-30 08:00] VITALS: BP 139/83
[2021-05-30] MEDS: ZINC SULFATE 220 CAPSULE PO SCH (08:34)
[2021-05-30] MEDS: ASCORBIC ACID 500 MG TAB PO SCH ×3 (08:34→20:12)
[2021-05-30] MEDS: ENOXAPARIN SODIUM 30 MG/0.3 ML SQ SCH (08:34)
[2021-05-30] MEDS: CEFTRIAXONE 1G VIAL IVP SCH (08:35)
[2021-05-30 12:00] VITALS: BP 143/73
[2021-05-30 16:00] VITALS: BP 122/63
[2021-05-30 20:11] VITALS: BP_SYST 135; BP_SYST 142; BP_DIAS 69; BP_DIAS 84
[2021-05-30] MEDS: INSULIN GLARGINE 100 UNITS/ML 10 ML VIAL SQ SCH (20:14)
[2021-05-30 23:32] VITALS: BP 128/75
[2021-05-31 03:52] VITALS: BP 111/65
[2021-05-31] MEDS: ALBUTEROL INHALER 90MCG/INH IH SCH ×3 (05:15→17:45)
[2021-05-31] MEDS: INSULIN HUMULIN R 100 UNIT/ML 3ML SQ SCH ×7 (05:34→21:24)
[2021-05-31 06:57] LABS: BASOPHILS % (AUTO) 0.5 % (0.0-5.0); EOSINOPHILS % (AUTO) 0.6 % (0.0-8.0); LYMPHOCYTES % (AUTO) 7.8 % (21.0-51.0); MEAN CORPUSCULAR HEMOGLOBIN 30.6 pg (27.0-33.0); MEAN CORPUSCULAR HGB CONC 31.8 g/dL (32.0-36.0); MEAN CORPUSCULAR VOLUME 96.2 fL (79-99); NEUTROPHILS % (AUTO) 79.5 % (40.0-77.0); PLATELET COUNT (AUTO) 276 K/uL (130-400); RED BLOOD CELL COUNT(AUTO) 4.68 MIL/uL (4.50-6.20); RED CELL DISTRIBUTION WIDTH 13.4 % (11.0-15.5); WHITE BLOOD COUNT (AUTO) 24.1 K/uL (4.8-10.8)
[2021-05-31 07:16] LABS: ALBUMIN 2.7 g/dL (3.5-5.0); BILIRUBIN,TOTAL 0.8 mg/dL (0.2-1.0); CREATININE 0.6 mg/dL (0.5-1.5); CRP QUANTITATIVE 28.4 mg/L (0.00-9.0); POTASSIUM 3.9 mmol/L (3.5-5.1); TOTAL PROTEIN, SERUM 6.2 g/dL (6.0-8.3)
[2021-05-31 08:00] VITALS: BP 144/68
[2021-05-31] MEDS: ENOXAPARIN SODIUM 30 MG/0.3 ML SQ SCH (08:56)
[2021-05-31] MEDS: CEFTRIAXONE 1G VIAL IVP SCH (08:56)
[2021-05-31] MEDS: ZINC SULFATE 220 CAPSULE PO SCH (08:56)
[2021-05-31] MEDS: ASCORBIC ACID 500 MG TAB PO SCH ×3 (08:56→21:20)
[2021-05-31] MEDS ORDERED: DEXAMETHASONE SOD PHOSPHATE 4 MG/ML 1ML VIAL IVP SCH (09:00)
[2021-05-31] MEDS ORDERED: DEXMEDETOMIDINE 400MCG/NS100ML IV SCH (11:00)
[2021-05-31] MEDS ORDERED: SOLU-MEDROL 40MG VIAL IVP SCH (11:00)
[2021-05-31 12:00] VITALS: BP 146/78
[2021-05-31] MEDS ORDERED: FUROSEMIDE 20MG VIAL IV SCH (15:00)
[2021-05-31] MEDS: SOLU-MEDROL 40MG VIAL IVP SCH (15:15)
[2021-05-31 16:00] VITALS: BP 143/83
[2021-05-31 20:01] VITALS: BP 128/77
[2021-05-31] MEDS: FLUTICASONE PROPIONATE 50MCG/SPRAY 16 GM BOTTLE EN SCH (21:19)
[2021-05-31] MEDS: NACL NASAL SPRAY 120 SPRAY/BOTTLE NS SCH (21:20)
[2021-05-31] MEDS: INSULIN GLARGINE 100 UNITS/ML 10 ML VIAL SQ SCH (21:23)
[2021-06-01] VITALS (7 sets, daily range): BP systolic 116–149; BP diastolic 54–109
[2021-06-01] MEDS: ALBUTEROL INHALER 90MCG/INH IH SCH ×4 (01:27→18:29)
[2021-06-01] MEDS: SOLU-MEDROL 40MG VIAL IVP SCH ×3 (03:54→20:30)
[2021-06-01 04:11] LABS: BASOPHILS % (AUTO) 0.4 % (0.0-5.0); EOSINOPHILS % (AUTO) 0.1 % (0.0-8.0); HEMATOCRIT 43.2 % (42-54); LYMPHOCYTES % (AUTO) 4.6 % (21.0-51.0); MEAN CORPUSCULAR HEMOGLOBIN 30.9 pg (27.0-33.0); MEAN CORPUSCULAR HGB CONC 31.7 g/dL (32.0-36.0); MEAN CORPUSCULAR VOLUME 97.3 fL (79-99); MONOCYTES % (AUTO) 8.4 % (3.0-13.0); NEUTROPHILS % (AUTO) 82.9 % (40.0-77.0); PLATELET COUNT (AUTO) 255 K/uL (130-400); RED BLOOD CELL COUNT(AUTO) 4.44 MIL/uL (4.50-6.20); RED CELL DISTRIBUTION WIDTH 13.5 % (11.0-15.5); WHITE BLOOD COUNT (AUTO) 19.2 K/uL (4.8-10.8)
[2021-06-01 04:36] LABS: ALBUMIN 2.6 g/dL (3.5-5.0); BILIRUBIN,TOTAL 0.8 mg/dL (0.2-1.0); CREATININE 0.7 mg/dL (0.5-1.5); POTASSIUM 4.2 mmol/L (3.5-5.1); TOTAL PROTEIN, SERUM 6.2 g/dL (6.0-8.3)
[2021-06-01] MEDS: INSULIN HUMULIN R 100 UNIT/ML 3ML SQ SCH ×7 (05:57→20:30)
[2021-06-01] MEDS: ASCORBIC ACID 500 MG TAB PO SCH ×3 (08:40→20:29)
[2021-06-01] MEDS: CEFTRIAXONE 1G VIAL IVP SCH (08:40)
[2021-06-01] MEDS: ZINC SULFATE 220 CAPSULE PO SCH (08:40)
[2021-06-01] MEDS: ENOXAPARIN SODIUM 30 MG/0.3 ML SQ SCH (08:41)
[2021-06-01] MEDS: FLUTICASONE PROPIONATE 50MCG/SPRAY 16 GM BOTTLE EN SCH ×2 (09:20→20:31)
[2021-06-01] MEDS: NACL NASAL SPRAY 120 SPRAY/BOTTLE NS SCH ×2 (09:20→20:31)
[2021-06-01] MEDS: INSULIN GLARGINE 100 UNITS/ML 10 ML VIAL SQ SCH (20:30)
[2021-06-02] MEDS: ALBUTEROL INHALER 90MCG/INH IH SCH ×5 (00:28→23:41)
[2021-06-02 03:26] VITALS: BP 113/76
[2021-06-02 04:31] LABS: BASOPHILS % (AUTO) 0.3 % (0.0-5.0); EOSINOPHILS % (AUTO) 0.1 % (0.0-8.0); HEMATOCRIT 42.8 % (42-54); LYMPHOCYTES % (AUTO) 3.8 % (21.0-51.0); MEAN CORPUSCULAR HEMOGLOBIN 31.2 pg (27.0-33.0); MEAN CORPUSCULAR HGB CONC 31.8 g/dL (32.0-36.0); MEAN CORPUSCULAR VOLUME 98.2 fL (79-99); MONOCYTES % (AUTO) 7.3 % (3.0-13.0); NEUTROPHILS % (AUTO) 85.7 % (40.0-77.0); PLATELET COUNT (AUTO) 256 K/uL (130-400); RED BLOOD CELL COUNT(AUTO) 4.36 MIL/uL (4.50-6.20); RED CELL DISTRIBUTION WIDTH 13.5 % (11.0-15.5); WHITE BLOOD COUNT (AUTO) 19.6 K/uL (4.8-10.8)
[2021-06-02 04:51] LABS: ALBUMIN 2.5 g/dL (3.5-5.0); BILIRUBIN,TOTAL 0.9 mg/dL (0.2-1.0); CREATININE 0.8 mg/dL (0.5-1.5); CRP QUANTITATIVE 38.4 mg/L (0.00-9.0); POTASSIUM 4.6 mmol/L (3.5-5.1); TOTAL PROTEIN, SERUM 6.1 g/dL (6.0-8.3)
[2021-06-02] MEDS: INSULIN HUMULIN R 100 UNIT/ML 3ML SQ SCH ×7 (06:07→20:26)
[2021-06-02 08:00] VITALS: BP 126/96
[2021-06-02] MEDS: NACL NASAL SPRAY 120 SPRAY/BOTTLE NS SCH ×2 (09:24→20:25)
[2021-06-02] MEDS: SOLU-MEDROL 40MG VIAL IVP SCH ×2 (09:24→20:25)
[2021-06-02] MEDS: ASCORBIC ACID 500 MG TAB PO SCH ×3 (09:24→20:25)
[2021-06-02] MEDS: ENOXAPARIN SODIUM 30 MG/0.3 ML SQ SCH (09:24)
[2021-06-02] MEDS: FLUTICASONE PROPIONATE 50MCG/SPRAY 16 GM BOTTLE EN SCH ×2 (09:24→20:25)
[2021-06-02] MEDS: CEFTRIAXONE 1G VIAL IVP SCH (09:24)
[2021-06-02] MEDS: ZINC SULFATE 220 CAPSULE PO SCH (09:24)
[2021-06-02 12:00] VITALS: BP 131/80
[2021-06-02 16:00] VITALS: BP 140/70
[2021-06-02 19:33] VITALS: BP 121/79
[2021-06-02] MEDS: INSULIN GLARGINE 100 UNITS/ML 10 ML VIAL SQ SCH (20:27)
[2021-06-02 23:41] VITALS: BP 111/66
[2021-06-03 03:58] VITALS: BP 122/82
[2021-06-03 04:37] LABS: BASOPHILS % (AUTO) 0.3 % (0.0-5.0); EOSINOPHILS % (AUTO) 0.1 % (0.0-8.0); HEMATOCRIT 44.5 % (42-54); LYMPHOCYTES % (AUTO) 3.4 % (21.0-51.0); MEAN CORPUSCULAR HEMOGLOBIN 30.9 pg (27.0-33.0); MEAN CORPUSCULAR VOLUME 99.6 fL (79-99); NEUTROPHILS % (AUTO) 86.8 % (40.0-77.0); PLATELET COUNT (AUTO) 258 K/uL (130-400); RED BLOOD CELL COUNT(AUTO) 4.47 MIL/uL (4.50-6.20); RED CELL DISTRIBUTION WIDTH 13.8 % (11.0-15.5); WHITE BLOOD COUNT (AUTO) 19.8 K/uL (4.8-10.8)
[2021-06-03 05:00] LABS: ALBUMIN 2.7 g/dL (3.5-5.0); CREATININE 0.7 mg/dL (0.5-1.5); POTASSIUM 4.3 mmol/L (3.5-5.1); TOTAL PROTEIN, SERUM 6.2 g/dL (6.0-8.3)
[2021-06-03] MEDS: INSULIN HUMULIN R 100 UNIT/ML 3ML SQ SCH ×7 (06:34→20:58)
[2021-06-03] MEDS: ALBUTEROL INHALER 90MCG/INH IH SCH ×4 (06:34→23:33)
[2021-06-03 08:00] VITALS: BP 139/72
[2021-06-03] MEDS: ENOXAPARIN SODIUM 30 MG/0.3 ML SQ SCH (09:00)
[2021-06-03] MEDS: CEFTRIAXONE 1G VIAL IVP SCH (09:00)
[2021-06-03] MEDS: ZINC SULFATE 220 CAPSULE PO SCH (09:00)
[2021-06-03] MEDS: ASCORBIC ACID 500 MG TAB PO SCH (09:01)
[2021-06-03] MEDS: SOLU-MEDROL 40MG VIAL IVP SCH ×2 (09:01→20:57)
[2021-06-03 12:00] VITALS: BP 148/67
[2021-06-03] MEDS ORDERED: METOPROLOL TARTRATE 1 MG/ML 5ML VIAL IV SCH (12:00)
[2021-06-03] MEDS: DOCUSATE SODIUM 100 MG CAP PO SCH ×2 (14:26→20:57)
[2021-06-03] MEDS: NACL NASAL SPRAY 120 SPRAY/BOTTLE NS SCH ×2 (14:26→20:56)
[2021-06-03] MEDS: FLUTICASONE PROPIONATE 50MCG/SPRAY 16 GM BOTTLE EN SCH ×2 (14:26→20:56)
[2021-06-03 16:00] VITALS: BP 132/72
[2021-06-03 19:48] VITALS: BP 133/75
[2021-06-03] MEDS: GUAIFENESIN-DM 200/20 MG 10 ML PO PRN (20:56)
[2021-06-03] MEDS: INSULIN GLARGINE 100 UNITS/ML 10 ML VIAL SQ SCH (20:59)
[2021-06-03] MEDS ORDERED: ENOXAPARIN SODIUM 30 MG/0.3 ML SQ SCH (21:00)
[2021-06-03 23:32] VITALS: BP 127/77
[2021-06-04 04:01] VITALS: BP 135/77
[2021-06-04 04:13] LABS: BASOPHILS % (AUTO) 0.3 % (0.0-5.0); EOSINOPHILS % (AUTO) 0.2 % (0.0-8.0); LYMPHOCYTES % (AUTO) 3.2 % (21.0-51.0); MEAN CORPUSCULAR HEMOGLOBIN 31.1 pg (27.0-33.0); MEAN CORPUSCULAR VOLUME 97.4 fL (79-99); MONOCYTES % (AUTO) 5.5 % (3.0-13.0); NEUTROPHILS % (AUTO) 87.5 % (40.0-77.0); PLATELET COUNT (AUTO) 214 K/uL (130-400); RED BLOOD CELL COUNT(AUTO) 4.21 MIL/uL (4.50-6.20); RED CELL DISTRIBUTION WIDTH 13.8 % (11.0-15.5); WHITE BLOOD COUNT (AUTO) 18.8 K/uL (4.8-10.8)
[2021-06-04 04:17] LABS: ABG HCO3 27.2 mmol/L (21.0-28.0); ABG OXYGEN SATURATION 90.7 % (95.0-99.0); ABG PCO2 40 mmHg (35-48)
[2021-06-04 04:52] LABS: ALBUMIN 2.6 g/dL (3.5-5.0); BILIRUBIN,TOTAL 0.9 mg/dL (0.2-1.0); CREATININE 0.7 mg/dL (0.5-1.5); POTASSIUM 4.2 mmol/L (3.5-5.1)
[2021-06-04] MEDS: INSULIN HUMULIN R 100 UNIT/ML 3ML SQ SCH ×7 (06:02→21:16)
[2021-06-04] MEDS: DOCUSATE SODIUM 100 MG CAP PO SCH ×3 (06:02→21:23)
[2021-06-04] MEDS: ALBUTEROL INHALER 90MCG/INH IH SCH ×4 (06:02→23:34)
[2021-06-04 08:00] VITALS: BP 142/79
[2021-06-04] MEDS: NACL NASAL SPRAY 120 SPRAY/BOTTLE NS SCH ×2 (08:17→21:14)
[2021-06-04] MEDS: FLUTICASONE PROPIONATE 50MCG/SPRAY 16 GM BOTTLE EN SCH ×2 (08:17→21:14)
[2021-06-04] MEDS: FUROSEMIDE 40 MG TABLET PO SCH (08:17)
[2021-06-04] MEDS: SENNOSIDES 8.6 MG TABLET PO SCH (08:18)
[2021-06-04] MEDS: ENOXAPARIN SODIUM 40 MG/0.4 ML SYRINGE SQ SCH ×2 (08:18→21:15)
[2021-06-04] MEDS: SOLU-MEDROL 40MG VIAL IVP SCH ×2 (08:18→21:14)
[2021-06-04] MEDS: POLYETHYLENE GLYCOL 3350 17 GM POWD.PACK PO SCH (08:18)
[2021-06-04 12:00] VITALS: BP 132/78
[2021-06-04 16:00] VITALS: BP 123/83
[2021-06-04 19:49] VITALS: BP 134/80
[2021-06-04] MEDS: INSULIN GLARGINE 100 UNITS/ML 10 ML VIAL SQ SCH (21:15)
[2021-06-04 23:33] VITALS: BP 139/84
[2021-06-05 04:20] VITALS: BP 110/68
[2021-06-05 04:27] LABS: BASOPHILS % (AUTO) 0.4 % (0.0-5.0); EOSINOPHILS % (AUTO) 0.6 % (0.0-8.0); HEMATOCRIT 40.3 % (42-54); MEAN CORPUSCULAR HGB CONC 31.5 g/dL (32.0-36.0); MEAN CORPUSCULAR VOLUME 98.3 fL (79-99); MONOCYTES % (AUTO) 4.8 % (3.0-13.0); NEUTROPHILS % (AUTO) 86.4 % (40.0-77.0); PLATELET COUNT (AUTO) 186 K/uL (130-400); RED CELL DISTRIBUTION WIDTH 13.9 % (11.0-15.5); WHITE BLOOD COUNT (AUTO) 17.3 K/uL (4.8-10.8)
[2021-06-05 04:43] LABS: ALBUMIN 2.5 g/dL (3.5-5.0); BILIRUBIN,TOTAL 0.7 mg/dL (0.2-1.0); CREATININE 0.6 mg/dL (0.5-1.5); POTASSIUM 4.2 mmol/L (3.5-5.1); TOTAL PROTEIN, SERUM 5.6 g/dL (6.0-8.3)
[2021-06-05] MEDS: DOCUSATE SODIUM 100 MG CAP PO SCH ×3 (06:00→20:49)
[2021-06-05] MEDS: INSULIN HUMULIN R 100 UNIT/ML 3ML SQ SCH ×7 (06:33→20:52)
[2021-06-05] MEDS: ALBUTEROL INHALER 90MCG/INH IH SCH ×3 (06:34→17:31)
[2021-06-05 07:00] VITALS: BP 135/80
[2021-06-05] MEDS: POLYETHYLENE GLYCOL 3350 17 GM POWD.PACK PO SCH (09:10)
[2021-06-05] MEDS: SENNOSIDES 8.6 MG TABLET PO SCH (09:11)
[2021-06-05] MEDS: ENOXAPARIN SODIUM 40 MG/0.4 ML SYRINGE SQ SCH ×2 (09:11→20:50)
[2021-06-05] MEDS: FUROSEMIDE 40 MG TABLET PO SCH (09:12)
[2021-06-05] MEDS: SOLU-MEDROL 40MG VIAL IVP SCH ×2 (09:12→20:50)
[2021-06-05] MEDS: FLUTICASONE PROPIONATE 50MCG/SPRAY 16 GM BOTTLE EN SCH ×2 (09:14→20:50)
[2021-06-05] MEDS: NACL NASAL SPRAY 120 SPRAY/BOTTLE NS SCH ×2 (09:14→20:49)
[2021-06-05 11:00] VITALS: BP 134/84
[2021-06-05 16:00] VITALS: BP 130/79
[2021-06-05 19:49] VITALS: BP 147/85
[2021-06-05] MEDS: INSULIN GLARGINE 100 UNITS/ML 10 ML VIAL SQ SCH (20:51)
[2021-06-06] VITALS (7 sets, daily range): BP systolic 123–140; BP diastolic 73–81
[2021-06-06] MEDS: ALBUTEROL INHALER 90MCG/INH IH SCH ×5 (00:30→23:40)
[2021-06-06 04:15] LABS: BASOPHILS % (AUTO) 0.5 % (0.0-5.0); EOSINOPHILS % (AUTO) 0.3 % (0.0-8.0); HEMATOCRIT 38.8 % (42-54); LYMPHOCYTES % (AUTO) 4.5 % (21.0-51.0); MEAN CORPUSCULAR HEMOGLOBIN 30.7 pg (27.0-33.0); MEAN CORPUSCULAR HGB CONC 31.7 g/dL (32.0-36.0); MEAN CORPUSCULAR VOLUME 96.8 fL (79-99); MONOCYTES % (AUTO) 4.8 % (3.0-13.0); NEUTROPHILS % (AUTO) 84.9 % (40.0-77.0); PLATELET COUNT (AUTO) 195 K/uL (130-400); RED BLOOD CELL COUNT(AUTO) 4.01 MIL/uL (4.50-6.20); RED CELL DISTRIBUTION WIDTH 13.8 % (11.0-15.5); WHITE BLOOD COUNT (AUTO) 15.4 K/uL (4.8-10.8)
[2021-06-06 04:32] LABS: ALBUMIN 2.4 g/dL (3.5-5.0); BILIRUBIN,TOTAL 0.7 mg/dL (0.2-1.0); CREATININE 0.6 mg/dL (0.5-1.5); POTASSIUM 4.1 mmol/L (3.5-5.1); TOTAL PROTEIN, SERUM 5.6 g/dL (6.0-8.3)
[2021-06-06] MEDS: DOCUSATE SODIUM 100 MG CAP PO SCH ×3 (05:50→20:43)
[2021-06-06] MEDS: INSULIN HUMULIN R 100 UNIT/ML 3ML SQ SCH ×7 (06:23→20:46)
[2021-06-06] MEDS: FUROSEMIDE 40 MG TABLET PO SCH (10:04)
[2021-06-06] MEDS: ENOXAPARIN SODIUM 40 MG/0.4 ML SYRINGE SQ SCH ×2 (10:04→20:46)
[2021-06-06] MEDS: SOLU-MEDROL 40MG VIAL IVP SCH ×2 (10:04→20:44)
[2021-06-06] MEDS: SENNOSIDES 8.6 MG TABLET PO SCH (10:04)
[2021-06-06] MEDS: POLYETHYLENE GLYCOL 3350 17 GM POWD.PACK PO SCH (10:04)
[2021-06-06] MEDS: NACL NASAL SPRAY 120 SPRAY/BOTTLE NS SCH ×2 (10:06→20:44)
[2021-06-06] MEDS: FLUTICASONE PROPIONATE 50MCG/SPRAY 16 GM BOTTLE EN SCH ×2 (10:06→20:44)
[2021-06-06] MEDS: INSULIN GLARGINE 100 UNITS/ML 10 ML VIAL SQ SCH (20:45)
[2021-06-07 03:24] VITALS: BP 128/65
[2021-06-07 04:09] LABS: BASOPHILS % (AUTO) 0.4 % (0.0-5.0); EOSINOPHILS % (AUTO) 0.5 % (0.0-8.0); HEMATOCRIT 40.8 % (42-54); LYMPHOCYTES % (AUTO) 4.6 % (21.0-51.0); MEAN CORPUSCULAR HGB CONC 31.4 g/dL (32.0-36.0); MEAN CORPUSCULAR VOLUME 98.8 fL (79-99); MONOCYTES % (AUTO) 5.2 % (3.0-13.0); NEUTROPHILS % (AUTO) 83.7 % (40.0-77.0); PLATELET COUNT (AUTO) 181 K/uL (130-400); RED BLOOD CELL COUNT(AUTO) 4.13 MIL/uL (4.50-6.20); RED CELL DISTRIBUTION WIDTH 14.2 % (11.0-15.5); WHITE BLOOD COUNT (AUTO) 16.4 K/uL (4.8-10.8)
[2021-06-07 04:24] LABS: ALBUMIN 2.5 g/dL (3.5-5.0); BILIRUBIN,TOTAL 0.6 mg/dL (0.2-1.0); CREATININE 0.6 mg/dL (0.5-1.5); POTASSIUM 4.1 mmol/L (3.5-5.1); TOTAL PROTEIN, SERUM 5.8 g/dL (6.0-8.3)
[2021-06-07] MEDS: DOCUSATE SODIUM 100 MG CAP PO SCH ×3 (06:31→20:07)
[2021-06-07] MEDS: INSULIN HUMULIN R 100 UNIT/ML 3ML SQ SCH ×7 (06:31→21:00)
[2021-06-07] MEDS: ALBUTEROL INHALER 90MCG/INH IH SCH ×3 (06:31→16:34)
[2021-06-07 08:00] VITALS: BP 123/74
[2021-06-07] MEDS: SENNOSIDES 8.6 MG TABLET PO SCH ×2 (08:50→09:00)
[2021-06-07] MEDS: ENOXAPARIN SODIUM 40 MG/0.4 ML SYRINGE SQ SCH ×2 (08:51→20:07)
[2021-06-07] MEDS: FUROSEMIDE 40 MG TABLET PO SCH (08:51)
[2021-06-07] MEDS: SOLU-MEDROL 40MG VIAL IVP SCH ×2 (08:51→20:10)
[2021-06-07] MEDS: NACL NASAL SPRAY 120 SPRAY/BOTTLE NS SCH ×2 (08:54→20:09)
[2021-06-07] MEDS: POLYETHYLENE GLYCOL 3350 17 GM POWD.PACK PO SCH (08:54)
[2021-06-07] MEDS: FLUTICASONE PROPIONATE 50MCG/SPRAY 16 GM BOTTLE EN SCH ×2 (08:54→20:08)
[2021-06-07 12:00] VITALS: BP 150/90
[2021-06-07 16:00] VITALS: BP 127/76
[2021-06-07] MEDS: INSULIN GLARGINE 100 UNITS/ML 10 ML VIAL SQ SCH (20:08)
[2021-06-07 20:30] VITALS: BP 136/77
[2021-06-07 23:43] VITALS: BP 121/72
[2021-06-08] MEDS: ALBUTEROL INHALER 90MCG/INH IH SCH ×4 (01:29→17:08)
[2021-06-08 03:59] VITALS: BP 140/87
[2021-06-08 04:07] LABS: BASOPHILS % (AUTO) 0.7 % (0.0-5.0); EOSINOPHILS % (AUTO) 0.5 % (0.0-8.0); HEMATOCRIT 40.5 % (42-54); LYMPHOCYTES % (AUTO) 5.3 % (21.0-51.0); MEAN CORPUSCULAR HEMOGLOBIN 31.6 pg (27.0-33.0); MEAN CORPUSCULAR HGB CONC 31.6 g/dL (32.0-36.0); MONOCYTES % (AUTO) 4.9 % (3.0-13.0); NEUTROPHILS % (AUTO) 83.2 % (40.0-77.0); PLATELET COUNT (AUTO) 175 K/uL (130-400); RED BLOOD CELL COUNT(AUTO) 4.05 MIL/uL (4.50-6.20); RED CELL DISTRIBUTION WIDTH 14.1 % (11.0-15.5); WHITE BLOOD COUNT (AUTO) 14.6 K/uL (4.8-10.8)
[2021-06-08 04:23] LABS: ALBUMIN 2.4 g/dL (3.5-5.0); BILIRUBIN,TOTAL 0.7 mg/dL (0.2-1.0); CREATININE 0.7 mg/dL (0.5-1.5); POTASSIUM 4.5 mmol/L (3.5-5.1); TOTAL PROTEIN, SERUM 5.9 g/dL (6.0-8.3)
[2021-06-08] MEDS: INSULIN HUMULIN R 100 UNIT/ML 3ML SQ SCH ×7 (05:49→21:36)
[2021-06-08] MEDS: DOCUSATE SODIUM 100 MG CAP PO SCH ×3 (05:57→21:35)
[2021-06-08 08:00] VITALS: BP 151/83
[2021-06-08] MEDS: POLYETHYLENE GLYCOL 3350 17 GM POWD.PACK PO SCH (10:01)
[2021-06-08] MEDS: FUROSEMIDE 40 MG TABLET PO SCH (10:01)
[2021-06-08] MEDS: SENNOSIDES 8.6 MG TABLET PO SCH (10:01)
[2021-06-08] MEDS: FLUTICASONE PROPIONATE 50MCG/SPRAY 16 GM BOTTLE EN SCH ×2 (10:02→21:35)
[2021-06-08] MEDS: ENOXAPARIN SODIUM 40 MG/0.4 ML SYRINGE SQ SCH ×2 (10:02→21:35)
[2021-06-08] MEDS: SOLU-MEDROL 40MG VIAL IVP SCH ×2 (10:02→21:35)
[2021-06-08] MEDS: NACL NASAL SPRAY 120 SPRAY/BOTTLE NS SCH ×2 (10:02→21:35)
[2021-06-08 12:00] VITALS: BP 137/75
[2021-06-08 16:00] VITALS: BP 139/82
[2021-06-08 20:00] VITALS: BP 133/78
[2021-06-08] MEDS: INSULIN GLARGINE 100 UNITS/ML 10 ML VIAL SQ SCH (21:36)
[2021-06-09] VITALS: BP 130/64
[2021-06-09] MEDS: ALBUTEROL INHALER 90MCG/INH IH SCH ×4 (00:04→17:22)
[2021-06-09 03:51] LABS: BASOPHILS % (AUTO) 0.5 % (0.0-5.0); EOSINOPHILS % (AUTO) 0.2 % (0.0-8.0); HEMATOCRIT 40.4 % (42-54); LYMPHOCYTES % (AUTO) 4.6 % (21.0-51.0); MEAN CORPUSCULAR HEMOGLOBIN 31.2 pg (27.0-33.0); MEAN CORPUSCULAR HGB CONC 31.7 g/dL (32.0-36.0); MEAN CORPUSCULAR VOLUME 98.5 fL (79-99); MONOCYTES % (AUTO) 4.3 % (3.0-13.0); NEUTROPHILS % (AUTO) 84.8 % (40.0-77.0); PLATELET COUNT (AUTO) 166 K/uL (130-400); RED CELL DISTRIBUTION WIDTH 14.3 % (11.0-15.5); WHITE BLOOD COUNT (AUTO) 14.9 K/uL (4.8-10.8)
[2021-06-09 04:00] VITALS: BP 129/76
[2021-06-09 04:17] LABS: ALBUMIN 2.5 g/dL (3.5-5.0); BILIRUBIN,TOTAL 0.7 mg/dL (0.2-1.0); CREATININE 0.6 mg/dL (0.5-1.5); POTASSIUM 4.5 mmol/L (3.5-5.1); TOTAL PROTEIN, SERUM 5.8 g/dL (6.0-8.3)
[2021-06-09] MEDS: INSULIN HUMULIN R 100 UNIT/ML 3ML SQ SCH ×7 (07:30→20:51)
[2021-06-09 08:00] VITALS: BP 136/76
[2021-06-09] MEDS: FUROSEMIDE 40 MG TABLET PO SCH (09:09)
[2021-06-09] MEDS: SOLU-MEDROL 40MG VIAL IVP SCH ×2 (09:10→20:49)
[2021-06-09] MEDS: ENOXAPARIN SODIUM 40 MG/0.4 ML SYRINGE SQ SCH ×2 (09:10→20:50)
[2021-06-09] MEDS: SENNOSIDES 8.6 MG TABLET PO SCH (09:10)
[2021-06-09] MEDS: POLYETHYLENE GLYCOL 3350 17 GM POWD.PACK PO SCH (09:10)
[2021-06-09] MEDS: DOCUSATE SODIUM 100 MG CAP PO SCH ×3 (09:12→20:49)
[2021-06-09] MEDS: FLUTICASONE PROPIONATE 50MCG/SPRAY 16 GM BOTTLE EN SCH ×2 (09:12→20:50)
[2021-06-09] MEDS: NACL NASAL SPRAY 120 SPRAY/BOTTLE NS SCH ×2 (09:13→20:50)
[2021-06-09 12:00] VITALS: BP 143/83
[2021-06-09 16:00] VITALS: BP 139/96
[2021-06-09 19:35] VITALS: BP 147/83
[2021-06-09] MEDS: INSULIN GLARGINE 100 UNITS/ML 10 ML VIAL SQ SCH (20:52)
[2021-06-10 00:08] VITALS: BP 112/74
[2021-06-10] MEDS: ALBUTEROL INHALER 90MCG/INH IH SCH ×5 (00:10→23:47)
[2021-06-10 04:03] VITALS: BP 120/61
[2021-06-10 04:18] LABS: BASOPHILS % (AUTO) 0.5 % (0.0-5.0); EOSINOPHILS % (AUTO) 0.7 % (0.0-8.0); HEMATOCRIT 40.7 % (42-54); LYMPHOCYTES % (AUTO) 6.4 % (21.0-51.0); MEAN CORPUSCULAR HEMOGLOBIN 30.7 pg (27.0-33.0); MEAN CORPUSCULAR HGB CONC 30.7 g/dL (32.0-36.0); MONOCYTES % (AUTO) 5.1 % (3.0-13.0); NEUTROPHILS % (AUTO) 82.5 % (40.0-77.0); PLATELET COUNT (AUTO) 168 K/uL (130-400); RED BLOOD CELL COUNT(AUTO) 4.07 MIL/uL (4.50-6.20); RED CELL DISTRIBUTION WIDTH 14.4 % (11.0-15.5); WHITE BLOOD COUNT (AUTO) 14.6 K/uL (4.8-10.8)
[2021-06-10 04:51] LABS: ALBUMIN 2.5 g/dL (3.5-5.0); BILIRUBIN,TOTAL 0.8 mg/dL (0.2-1.0); CREATININE 0.6 mg/dL (0.5-1.5); POTASSIUM 4.2 mmol/L (3.5-5.1); TOTAL PROTEIN, SERUM 5.8 g/dL (6.0-8.3)
[2021-06-10] MEDS: INSULIN HUMULIN R 100 UNIT/ML 3ML SQ SCH ×7 (06:11→20:48)
[2021-06-10] MEDS: DOCUSATE SODIUM 100 MG CAP PO SCH ×3 (06:17→20:46)
[2021-06-10 07:55] VITALS: BP 142/86
[2021-06-10] MEDS: ENOXAPARIN SODIUM 40 MG/0.4 ML SYRINGE SQ SCH ×2 (08:42→20:49)
[2021-06-10] MEDS: FUROSEMIDE 40 MG TABLET PO SCH (08:42)
[2021-06-10] MEDS: SOLU-MEDROL 40MG VIAL IVP SCH ×2 (08:42→20:46)
[2021-06-10] MEDS: FLUTICASONE PROPIONATE 50MCG/SPRAY 16 GM BOTTLE EN SCH ×2 (08:52→20:46)
[2021-06-10] MEDS: NACL NASAL SPRAY 120 SPRAY/BOTTLE NS SCH ×2 (08:52→20:46)
[2021-06-10] MEDS: SENNOSIDES 8.6 MG TABLET PO SCH (09:23)
[2021-06-10] MEDS: POLYETHYLENE GLYCOL 3350 17 GM POWD.PACK PO SCH (09:23)
[2021-06-10 16:05] VITALS: BP 130/70
[2021-06-10 19:37] VITALS: BP 128/78
[2021-06-10] MEDS: INSULIN GLARGINE 100 UNITS/ML 10 ML VIAL SQ SCH (20:47)
[2021-06-10 23:46] VITALS: BP 99/61
[2021-06-11 03:29] VITALS: BP 110/66
[2021-06-11 04:30] LABS: BASOPHILS % (AUTO) 0.5 % (0.0-5.0); EOSINOPHILS % (AUTO) 0.6 % (0.0-8.0); HEMATOCRIT 39.8 % (42-54); LYMPHOCYTES % (AUTO) 6.1 % (21.0-51.0); MEAN CORPUSCULAR HEMOGLOBIN 31.5 pg (27.0-33.0); MEAN CORPUSCULAR HGB CONC 31.4 g/dL (32.0-36.0); MEAN CORPUSCULAR VOLUME 100.3 fL (79-99); MONOCYTES % (AUTO) 4.6 % (3.0-13.0); NEUTROPHILS % (AUTO) 83.4 % (40.0-77.0); PLATELET COUNT (AUTO) 165 K/uL (130-400); RED BLOOD CELL COUNT(AUTO) 3.97 MIL/uL (4.50-6.20); RED CELL DISTRIBUTION WIDTH 14.3 % (11.0-15.5); WHITE BLOOD COUNT (AUTO) 14.5 K/uL (4.8-10.8)
[2021-06-11 04:59] LABS: ALBUMIN 2.6 g/dL (3.5-5.0); BILIRUBIN,TOTAL 0.8 mg/dL (0.2-1.0); CREATININE 0.6 mg/dL (0.5-1.5); CRP QUANTITATIVE 19.6 mg/L (0.00-9.0); MAGNESIUM 2.3 mg/dL (1.80-2.40); TOTAL PROTEIN, SERUM 6.1 g/dL (6.0-8.3)
[2021-06-11] MEDS: INSULIN HUMULIN R 100 UNIT/ML 3ML SQ SCH ×7 (06:04→20:46)
[2021-06-11] MEDS: DOCUSATE SODIUM 100 MG CAP PO SCH ×3 (06:24→20:45)
[2021-06-11] MEDS: ALBUTEROL INHALER 90MCG/INH IH SCH ×4 (06:24→23:48)
[2021-06-11 08:31] VITALS: BP 130/80
[2021-06-11] MEDS: SOLU-MEDROL 40MG VIAL IVP SCH ×2 (09:18→20:45)
[2021-06-11] MEDS: ENOXAPARIN SODIUM 40 MG/0.4 ML SYRINGE SQ SCH ×2 (09:18→20:48)
[2021-06-11] MEDS: POLYETHYLENE GLYCOL 3350 17 GM POWD.PACK PO SCH (09:18)
[2021-06-11] MEDS: NACL NASAL SPRAY 120 SPRAY/BOTTLE NS SCH ×2 (09:19→20:45)
[2021-06-11] MEDS: FUROSEMIDE 40 MG TABLET PO SCH (09:19)
[2021-06-11] MEDS: FLUTICASONE PROPIONATE 50MCG/SPRAY 16 GM BOTTLE EN SCH ×2 (09:19→20:44)
[2021-06-11] MEDS: SENNOSIDES 8.6 MG TABLET PO SCH (09:19)
[2021-06-11 12:13] VITALS: BP 126/74
[2021-06-11 16:37] VITALS: BP 129/81
[2021-06-11 19:42] VITALS: BP 129/78
[2021-06-11] MEDS: INSULIN GLARGINE 100 UNITS/ML 10 ML VIAL SQ SCH (20:47)
[2021-06-11 23:47] VITALS: BP 125/73
[2021-06-12 03:40] VITALS: BP 115/69
[2021-06-12 04:01] LABS: BASOPHILS % (AUTO) 0.4 % (0.0-5.0); EOSINOPHILS % (AUTO) 0.3 % (0.0-8.0); HEMATOCRIT 39.3 % (42-54); MEAN CORPUSCULAR HGB CONC 31.8 g/dL (32.0-36.0); MEAN CORPUSCULAR VOLUME 97.5 fL (79-99); MONOCYTES % (AUTO) 4.3 % (3.0-13.0); NEUTROPHILS % (AUTO) 84.1 % (40.0-77.0); PLATELET COUNT (AUTO) 179 K/uL (130-400); RED BLOOD CELL COUNT(AUTO) 4.03 MIL/uL (4.50-6.20); RED CELL DISTRIBUTION WIDTH 14.4 % (11.0-15.5); WHITE BLOOD COUNT (AUTO) 13.4 K/uL (4.8-10.8)
[2021-06-12 04:27] LABS: ALBUMIN 2.6 g/dL (3.5-5.0); BILIRUBIN,TOTAL 0.8 mg/dL (0.2-1.0); CREATININE 0.7 mg/dL (0.5-1.5); CRP QUANTITATIVE 26.1 mg/L (0.00-9.0); POTASSIUM 4.4 mmol/L (3.5-5.1); TOTAL PROTEIN, SERUM 6.3 g/dL (6.0-8.3)
[2021-06-12] MEDS: ALBUTEROL INHALER 90MCG/INH IH SCH ×3 (06:17→16:43)
[2021-06-12] MEDS: DOCUSATE SODIUM 100 MG CAP PO SCH ×3 (06:17→20:04)
[2021-06-12] MEDS: INSULIN HUMULIN R 100 UNIT/ML 3ML SQ SCH ×7 (06:18→20:51)
[2021-06-12 08:00] VITALS: BP 130/78
[2021-06-12] MEDS: SENNOSIDES 8.6 MG TABLET PO SCH (09:00)
[2021-06-12] MEDS: FUROSEMIDE 40 MG TABLET PO SCH (09:05)
[2021-06-12] MEDS: POLYETHYLENE GLYCOL 3350 17 GM POWD.PACK PO SCH (09:05)
[2021-06-12] MEDS: ENOXAPARIN SODIUM 40 MG/0.4 ML SYRINGE SQ SCH ×2 (09:05→20:04)
[2021-06-12] MEDS: SOLU-MEDROL 40MG VIAL IVP SCH ×2 (09:06→20:03)
[2021-06-12] MEDS: NACL NASAL SPRAY 120 SPRAY/BOTTLE NS SCH ×2 (09:07→21:58)
[2021-06-12] MEDS: FLUTICASONE PROPIONATE 50MCG/SPRAY 16 GM BOTTLE EN SCH ×2 (09:07→20:52)
[2021-06-12 12:00] VITALS: BP 130/80
[2021-06-12 16:00] VITALS: BP 130/85
[2021-06-12 20:13] VITALS: BP 147/76
[2021-06-12] MEDS: INSULIN GLARGINE 100 UNITS/ML 10 ML VIAL SQ SCH (20:51)
[2021-06-13] VITALS (7 sets, daily range): BP systolic 113–134; BP diastolic 64–85
[2021-06-13 04:23] LABS: BASOPHILS % (AUTO) 0.4 % (0.0-5.0); EOSINOPHILS % (AUTO) 0.8 % (0.0-8.0); HEMATOCRIT 39.2 % (42-54); LYMPHOCYTES % (AUTO) 9.4 % (21.0-51.0); MEAN CORPUSCULAR HEMOGLOBIN 30.8 pg (27.0-33.0); MEAN CORPUSCULAR HGB CONC 31.1 g/dL (32.0-36.0); MONOCYTES % (AUTO) 5.6 % (3.0-13.0); PLATELET COUNT (AUTO) 193 K/uL (130-400); RED BLOOD CELL COUNT(AUTO) 3.96 MIL/uL (4.50-6.20); RED CELL DISTRIBUTION WIDTH 14.5 % (11.0-15.5); WHITE BLOOD COUNT (AUTO) 13.4 K/uL (4.8-10.8)
[2021-06-13 04:36] LABS: ALBUMIN 2.5 g/dL (3.5-5.0); BILIRUBIN,TOTAL 0.8 mg/dL (0.2-1.0); CREATININE 0.7 mg/dL (0.5-1.5); CRP QUANTITATIVE 19.4 mg/L (0.00-9.0); POTASSIUM 3.8 mmol/L (3.5-5.1); TOTAL PROTEIN, SERUM 6.1 g/dL (6.0-8.3)
[2021-06-13 05:12] LABS: PLATELET MORPHOLOGY PLT CLUMPS PRESENT
[2021-06-13] MEDS: ALBUTEROL INHALER 90MCG/INH IH SCH ×2 (06:00)
[2021-06-13] MEDS: DOCUSATE SODIUM 100 MG CAP PO SCH ×3 (06:00→20:22)
[2021-06-13] MEDS: INSULIN HUMULIN R 100 UNIT/ML 3ML SQ SCH ×7 (06:25→20:21)
[2021-06-13] MEDS: FUROSEMIDE 40 MG TABLET PO SCH (08:37)
[2021-06-13] MEDS: SOLU-MEDROL 40MG VIAL IVP SCH ×2 (08:37→20:21)
[2021-06-13] MEDS: SENNOSIDES 8.6 MG TABLET PO SCH (08:37)
[2021-06-13] MEDS: POLYETHYLENE GLYCOL 3350 17 GM POWD.PACK PO SCH (08:37)
[2021-06-13] MEDS: ENOXAPARIN SODIUM 40 MG/0.4 ML SYRINGE SQ SCH ×2 (08:37→20:22)
[2021-06-13] MEDS: FLUTICASONE PROPIONATE 50MCG/SPRAY 16 GM BOTTLE EN SCH ×2 (08:39→20:21)
[2021-06-13] MEDS: NACL NASAL SPRAY 120 SPRAY/BOTTLE NS SCH ×2 (08:39→20:21)
[2021-06-13] MEDS ORDERED: LINEZOLID 600 MG/ISO-OSM 300 ML IV SCH (12:00)
[2021-06-13] MEDS ORDERED: ZOSYN 3.375GM +NS 50ML IV SCH ×2 (12:00→13:30)
[2021-06-13] MEDS ORDERED: 0.9%NACL 50ML 50 ML IV ONE ×2 (12:07→20:07)
[2021-06-13] MEDS: ZOSYN 3.375GM+NS 50ML 50 ML IV SCH ×2 (12:09→20:20)
[2021-06-13] MEDS: KCL 20 MEQ ERTAB PO PRN ×2 (12:16→17:41)
[2021-06-13] MEDS: INSULIN GLARGINE 100 UNITS/ML 10 ML VIAL SQ SCH (20:23)
[2021-06-14] MEDS ORDERED: LINEZOLID 600 MG/ISO-OSM 300 ML IV ONE (00:05)
[2021-06-14] MEDS ORDERED: 0.9%NACL 50ML 50 ML IV ONE ×3 (03:38→19:57)
[2021-06-14 04:04] LABS: BASOPHILS % (AUTO) 0.6 % (0.0-5.0); EOSINOPHILS % (AUTO) 0.2 % (0.0-8.0); HEMATOCRIT 39.1 % (42-54); LYMPHOCYTES % (AUTO) 6.6 % (21.0-51.0); MEAN CORPUSCULAR HEMOGLOBIN 30.9 pg (27.0-33.0); MEAN CORPUSCULAR HGB CONC 30.7 g/dL (32.0-36.0); MEAN CORPUSCULAR VOLUME 100.8 fL (79-99); MONOCYTES % (AUTO) 4.9 % (3.0-13.0); PLATELET COUNT (AUTO) 187 K/uL (130-400); RED BLOOD CELL COUNT(AUTO) 3.88 MIL/uL (4.50-6.20); RED CELL DISTRIBUTION WIDTH 14.3 % (11.0-15.5); WHITE BLOOD COUNT (AUTO) 12.3 K/uL (4.8-10.8)
[2021-06-14] MEDS: ZOSYN 3.375GM+NS 50ML 50 ML IV SCH ×3 (04:07→20:22)
[2021-06-14 04:14] VITALS: BP 129/77
[2021-06-14 04:17] LABS: ALBUMIN 2.5 g/dL (3.5-5.0); BILIRUBIN,TOTAL 0.7 mg/dL (0.2-1.0); CREATININE 0.8 mg/dL (0.5-1.5); CRP QUANTITATIVE 16.5 mg/L (0.00-9.0); POTASSIUM 4.4 mmol/L (3.5-5.1); TOTAL PROTEIN, SERUM 6.2 g/dL (6.0-8.3)
[2021-06-14] MEDS: INSULIN HUMULIN R 100 UNIT/ML 3ML SQ SCH ×7 (06:02→20:26)
[2021-06-14] MEDS: DOCUSATE SODIUM 100 MG CAP PO SCH ×3 (06:13→20:22)
[2021-06-14 08:00] VITALS: BP 114/72
[2021-06-14] MEDS: SENNOSIDES 8.6 MG TABLET PO SCH (09:00)
[2021-06-14] MEDS: ENOXAPARIN SODIUM 40 MG/0.4 ML SYRINGE SQ SCH ×2 (09:29→20:27)
[2021-06-14] MEDS: FUROSEMIDE 40 MG TABLET PO SCH (09:30)
[2021-06-14] MEDS: SOLU-MEDROL 40MG VIAL IVP SCH ×2 (09:30→20:22)
[2021-06-14] MEDS: POLYETHYLENE GLYCOL 3350 17 GM POWD.PACK PO SCH (09:31)
[2021-06-14] MEDS: NACL NASAL SPRAY 120 SPRAY/BOTTLE NS SCH ×2 (09:31→20:23)
[2021-06-14] MEDS: FLUTICASONE PROPIONATE 50MCG/SPRAY 16 GM BOTTLE EN SCH ×2 (09:32→20:23)
[2021-06-14 12:00] VITALS: BP 147/88
[2021-06-14 16:00] VITALS: BP 127/85
[2021-06-14 19:35] VITALS: BP 151/85
[2021-06-14] MEDS: INSULIN GLARGINE 100 UNITS/ML 10 ML VIAL SQ SCH (20:25)
[2021-06-14 23:43] VITALS: BP 126/67
[2021-06-15] MEDS ORDERED: 0.9%NACL 50ML 50 ML IV ONE ×2 (03:47→20:18)
[2021-06-15] MEDS: ZOSYN 3.375GM+NS 50ML 50 ML IV SCH ×3 (03:49→21:14)
[2021-06-15 03:59] VITALS: BP 122/84
[2021-06-15] MEDS: DOCUSATE SODIUM 100 MG CAP PO SCH (06:28)
[2021-06-15] MEDS: INSULIN HUMULIN R 100 UNIT/ML 3ML SQ SCH ×7 (06:29→19:56)
[2021-06-15 08:00] VITALS: BP 127/62
[2021-06-15] MEDS: SENNOSIDES 8.6 MG TABLET PO SCH (08:48)
[2021-06-15] MEDS: FUROSEMIDE 40 MG TABLET PO SCH (08:48)
[2021-06-15] MEDS: SOLU-MEDROL 40MG VIAL IVP SCH ×2 (08:48→21:14)
[2021-06-15] MEDS: NACL NASAL SPRAY 120 SPRAY/BOTTLE NS SCH ×2 (08:49→21:19)
[2021-06-15] MEDS: POLYETHYLENE GLYCOL 3350 17 GM POWD.PACK PO SCH (08:49)
[2021-06-15] MEDS: FLUTICASONE PROPIONATE 50MCG/SPRAY 16 GM BOTTLE EN SCH ×2 (08:49→21:19)
[2021-06-15] MEDS: ENOXAPARIN SODIUM 40 MG/0.4 ML SYRINGE SQ SCH ×2 (08:50→21:15)
[2021-06-15 12:00] VITALS: BP 127/65
[2021-06-15 16:00] VITALS: BP 124/75
[2021-06-15 20:00] VITALS: BP 125/82
[2021-06-15] MEDS: INSULIN GLARGINE 100 UNITS/ML 10 ML VIAL SQ SCH (21:16)
[2021-06-16] VITALS (7 sets, daily range): BP systolic 118–143; BP diastolic 64–90
[2021-06-16] MEDS ORDERED: 0.9%NACL 50ML 50 ML IV ONE ×2 (03:38→19:47)
[2021-06-16] MEDS: ZOSYN 3.375GM+NS 50ML 50 ML IV SCH ×3 (04:05→20:03)
[2021-06-16] MEDS: INSULIN HUMULIN R 100 UNIT/ML 3ML SQ SCH ×4 (06:11→17:16)
[2021-06-16 06:41] LABS: BASOPHILS % (AUTO) 0.5 % (0.0-5.0); EOSINOPHILS % (AUTO) 0.5 % (0.0-8.0); HEMATOCRIT 37.8 % (42-54); LYMPHOCYTES % (AUTO) 10.1 % (21.0-51.0); MEAN CORPUSCULAR VOLUME 100.3 fL (79-99); MONOCYTES % (AUTO) 6.2 % (3.0-13.0); NEUTROPHILS % (AUTO) 77.5 % (40.0-77.0); PLATELET COUNT (AUTO) 204 K/uL (130-400); RED BLOOD CELL COUNT(AUTO) 3.77 MIL/uL (4.50-6.20); RED CELL DISTRIBUTION WIDTH 14.6 % (11.0-15.5); WHITE BLOOD COUNT (AUTO) 11.8 K/uL (4.8-10.8)
[2021-06-16 06:56] LABS: ALBUMIN 2.6 g/dL (3.5-5.0); BILIRUBIN,TOTAL 0.7 mg/dL (0.2-1.0); CREATININE 0.7 mg/dL (0.5-1.5); CRP QUANTITATIVE 13.5 mg/L (0.00-9.0); POTASSIUM 3.9 mmol/L (3.5-5.1); TOTAL PROTEIN, SERUM 6.3 g/dL (6.0-8.3)
[2021-06-16] MEDS: ENOXAPARIN SODIUM 40 MG/0.4 ML SYRINGE SQ SCH ×2 (07:46→20:05)
[2021-06-16] MEDS: SOLU-MEDROL 40MG VIAL IVP SCH (07:46)
[2021-06-16] MEDS: FUROSEMIDE 40 MG TABLET PO SCH (07:47)
[2021-06-16] MEDS: NACL NASAL SPRAY 120 SPRAY/BOTTLE NS SCH ×2 (07:58→20:04)
[2021-06-16] MEDS: FLUTICASONE PROPIONATE 50MCG/SPRAY 16 GM BOTTLE EN SCH ×2 (07:58→20:04)
[2021-06-16] MEDS: ZINC SULFATE 220 CAPSULE PO SCH (09:53)
[2021-06-16] MEDS: ASCORBIC ACID 500 MG TAB PO SCH (09:53)
[2021-06-16] MEDS: INSULIN GLARGINE 100 UNITS/ML 10 ML VIAL SQ SCH (20:05)
[2021-06-17] MEDS ORDERED: 0.9%NACL 50ML 50 ML IV ONE ×3 (03:15→20:08)
[2021-06-17] MEDS: ZOSYN 3.375GM+NS 50ML 50 ML IV SCH ×3 (03:41→20:25)
[2021-06-17 03:48] VITALS: BP 118/84
[2021-06-17 04:10] LABS: BASOPHILS % (AUTO) 0.6 % (0.0-5.0); EOSINOPHILS % (AUTO) 1.3 % (0.0-8.0); HEMATOCRIT 40.2 % (42-54); LYMPHOCYTES % (AUTO) 17.4 % (21.0-51.0); MEAN CORPUSCULAR HEMOGLOBIN 31.1 pg (27.0-33.0); MEAN CORPUSCULAR HGB CONC 31.3 g/dL (32.0-36.0); MEAN CORPUSCULAR VOLUME 99.3 fL (79-99); NEUTROPHILS % (AUTO) 70.6 % (40.0-77.0); PLATELET COUNT (AUTO) 216 K/uL (130-400); RED BLOOD CELL COUNT(AUTO) 4.05 MIL/uL (4.50-6.20); RED CELL DISTRIBUTION WIDTH 14.5 % (11.0-15.5); WHITE BLOOD COUNT (AUTO) 11.7 K/uL (4.8-10.8)
[2021-06-17 04:23] LABS: CREATININE 0.9 mg/dL (0.5-1.5); POTASSIUM 3.4 mmol/L (3.5-5.1)
[2021-06-17] MEDS: INSULIN HUMULIN R 100 UNIT/ML 3ML SQ SCH ×5 (06:35→20:27)
[2021-06-17] MEDS: KCL 20 MEQ ERTAB PO PRN ×2 (06:49→09:04)
[2021-06-17 08:00] VITALS: BP 120/77
[2021-06-17] MEDS: FUROSEMIDE 40 MG TABLET PO SCH (09:00)
[2021-06-17] MEDS: ASCORBIC ACID 500 MG TAB PO SCH (09:00)
[2021-06-17] MEDS: ENOXAPARIN SODIUM 40 MG/0.4 ML SYRINGE SQ SCH ×2 (09:01→20:27)
[2021-06-17] MEDS: DEXAMETHASONE SOD PHOSPHATE 4 MG/ML 1ML VIAL IVP SCH (09:01)
[2021-06-17] MEDS: NACL NASAL SPRAY 120 SPRAY/BOTTLE NS SCH ×2 (09:05→20:26)
[2021-06-17] MEDS: FLUTICASONE PROPIONATE 50MCG/SPRAY 16 GM BOTTLE EN SCH ×2 (09:05→20:26)
[2021-06-17] MEDS: ZINC SULFATE 220 CAPSULE PO SCH (09:05)
[2021-06-17] MEDS ORDERED: IOHEXOL-350 75 ML VIAL IV ONE (10:51)
[2021-06-17 12:00] VITALS: BP 138/107
[2021-06-17 16:00] VITALS: BP 129/83
[2021-06-17 20:01] VITALS: BP 120/71
[2021-06-17] MEDS: DOCUSATE SODIUM 100 MG CAP PO SCH (20:26)
[2021-06-17] MEDS: METOPROLOL TARTRATE 25 MG TAB PO SCH (20:26)
[2021-06-17] MEDS: INSULIN GLARGINE 100 UNITS/ML 10 ML VIAL SQ SCH (20:28)
[2021-06-17 23:36] VITALS: BP 113/77
[2021-06-18] MEDS ORDERED: 0.9%NACL 50ML 50 ML IV ONE ×3 (03:49→19:58)
[2021-06-18] MEDS: ZOSYN 3.375GM+NS 50ML 50 ML IV SCH ×3 (03:58→20:14)
[2021-06-18 04:08] VITALS: BP 132/83
[2021-06-18 04:14] LABS: BASOPHILS % (AUTO) 0.5 % (0.0-5.0); EOSINOPHILS % (AUTO) 0.8 % (0.0-8.0); HEMATOCRIT 37.6 % (42-54); LYMPHOCYTES % (AUTO) 15.2 % (21.0-51.0); MEAN CORPUSCULAR HEMOGLOBIN 30.7 pg (27.0-33.0); MEAN CORPUSCULAR HGB CONC 31.4 g/dL (32.0-36.0); MEAN CORPUSCULAR VOLUME 97.9 fL (79-99); MONOCYTES % (AUTO) 5.7 % (3.0-13.0); NEUTROPHILS % (AUTO) 72.8 % (40.0-77.0); PLATELET COUNT (AUTO) 228 K/uL (130-400); RED BLOOD CELL COUNT(AUTO) 3.84 MIL/uL (4.50-6.20); RED CELL DISTRIBUTION WIDTH 14.6 % (11.0-15.5); WHITE BLOOD COUNT (AUTO) 9.9 K/uL (4.8-10.8)
[2021-06-18 04:38] LABS: CREATININE 0.7 mg/dL (0.5-1.5); POTASSIUM 3.3 mmol/L (3.5-5.1)
[2021-06-18 05:02] LABS: THYROID STIMULATING HORMONE 2.16 uIU/mL (0.36-3.74)
[2021-06-18] MEDS: INSULIN HUMULIN R 100 UNIT/ML 3ML SQ SCH ×7 (06:05→20:32)
[2021-06-18] MEDS: KCL 20 MEQ ERTAB PO PRN ×2 (06:34→08:31)
[2021-06-18 08:00] VITALS: BP 135/86
[2021-06-18] MEDS: DEXAMETHASONE SOD PHOSPHATE 4 MG/ML 1ML VIAL IVP SCH (08:24)
[2021-06-18] MEDS: ENOXAPARIN SODIUM 40 MG/0.4 ML SYRINGE SQ SCH ×2 (08:25→20:15)
[2021-06-18] MEDS: SENNOSIDES 8.6 MG TABLET PO SCH (08:25)
[2021-06-18] MEDS: ZINC SULFATE 220 CAPSULE PO SCH (08:25)
[2021-06-18] MEDS: DOCUSATE SODIUM 100 MG CAP PO SCH ×2 (08:26→20:14)
[2021-06-18] MEDS: ASCORBIC ACID 500 MG TAB PO SCH (08:26)
[2021-06-18] MEDS: POLYETHYLENE GLYCOL 3350 17 GM POWD.PACK PO SCH (08:27)
[2021-06-18] MEDS: FUROSEMIDE 40 MG TABLET PO SCH (08:27)
[2021-06-18] MEDS: FLUTICASONE PROPIONATE 50MCG/SPRAY 16 GM BOTTLE EN SCH ×2 (08:28→20:14)
[2021-06-18] MEDS: METOPROLOL TARTRATE 25 MG TAB PO SCH ×2 (08:28→20:14)
[2021-06-18] MEDS: NACL NASAL SPRAY 120 SPRAY/BOTTLE NS SCH ×2 (08:28→20:14)
[2021-06-18 12:00] VITALS: BP 140/77
[2021-06-18] MEDS: BUSPIRONE HCL 5 MG TABLET PO SCH ×2 (14:43→21:49)
[2021-06-18 16:00] VITALS: BP 117/63
[2021-06-18 19:36] VITALS: BP 145/94
[2021-06-18] MEDS: INSULIN GLARGINE 100 UNITS/ML 10 ML VIAL SQ SCH (20:32)
[2021-06-18 23:50] VITALS: BP 117/69
[2021-06-19] MEDS ORDERED: 0.9%NACL 50ML 50 ML IV ONE ×3 (03:18→19:37)
[2021-06-19] MEDS: ZOSYN 3.375GM+NS 50ML 50 ML IV SCH ×3 (03:56→19:58)
[2021-06-19 04:00] VITALS: BP 129/77
[2021-06-19 04:18] LABS: BASOPHILS % (AUTO) 0.5 % (0.0-5.0); EOSINOPHILS % (AUTO) 1.6 % (0.0-8.0); HEMATOCRIT 36.2 % (42-54); LYMPHOCYTES % (AUTO) 17.7 % (21.0-51.0); MEAN CORPUSCULAR HEMOGLOBIN 31.7 pg (27.0-33.0); MEAN CORPUSCULAR HGB CONC 31.5 g/dL (32.0-36.0); MEAN CORPUSCULAR VOLUME 100.6 fL (79-99); MONOCYTES % (AUTO) 5.5 % (3.0-13.0); NEUTROPHILS % (AUTO) 69.1 % (40.0-77.0); PLATELET COUNT (AUTO) 203 K/uL (130-400); RED CELL DISTRIBUTION WIDTH 14.4 % (11.0-15.5); WHITE BLOOD COUNT (AUTO) 10.9 K/uL (4.8-10.8)
[2021-06-19 04:24] LABS: CREATININE 0.8 mg/dL (0.5-1.5); POTASSIUM 3.5 mmol/L (3.5-5.1)
[2021-06-19] MEDS: INSULIN HUMULIN R 100 UNIT/ML 3ML SQ SCH ×7 (06:08→20:11)
[2021-06-19] MEDS: BUSPIRONE HCL 5 MG TABLET PO SCH ×3 (06:08→21:27)
[2021-06-19 08:00] VITALS: BP 131/75
[2021-06-19] MEDS: SENNOSIDES 8.6 MG TABLET PO SCH (09:00)
[2021-06-19] MEDS: ENOXAPARIN SODIUM 40 MG/0.4 ML SYRINGE SQ SCH ×2 (09:22→20:00)
[2021-06-19] MEDS: POLYETHYLENE GLYCOL 3350 17 GM POWD.PACK PO SCH (09:22)
[2021-06-19] MEDS: FUROSEMIDE 40 MG TABLET PO SCH (09:23)
[2021-06-19] MEDS: DEXAMETHASONE SOD PHOSPHATE 4 MG/ML 1ML VIAL IVP SCH (09:23)
[2021-06-19] MEDS: ASCORBIC ACID 500 MG TAB PO SCH (09:23)
[2021-06-19] MEDS: ZINC SULFATE 220 CAPSULE PO SCH (09:23)
[2021-06-19] MEDS: METOPROLOL TARTRATE 25 MG TAB PO SCH ×2 (09:23→19:58)
[2021-06-19] MEDS: DOCUSATE SODIUM 100 MG CAP PO SCH ×2 (09:30→19:58)
[2021-06-19] MEDS: KCL 20 MEQ ERTAB PO PRN ×2 (09:33→13:29)
[2021-06-19] MEDS: FLUTICASONE PROPIONATE 50MCG/SPRAY 16 GM BOTTLE EN SCH ×2 (09:39→19:59)
[2021-06-19] MEDS: NACL NASAL SPRAY 120 SPRAY/BOTTLE NS SCH ×2 (09:40→19:59)
[2021-06-19 12:00] VITALS: BP 135/65
[2021-06-19 16:00] VITALS: BP 113/63
[2021-06-19 20:01] VITALS: BP 151/88
[2021-06-19] MEDS: INSULIN GLARGINE 100 UNITS/ML 10 ML VIAL SQ SCH (20:11)
[2021-06-20] VITALS (7 sets, daily range): BP systolic 101–142; BP diastolic 63–91
[2021-06-20] MEDS ORDERED: 0.9%NACL 50ML 50 ML IV ONE (03:11)
[2021-06-20] MEDS: ZOSYN 3.375GM+NS 50ML 50 ML IV SCH (03:41)
[2021-06-20 04:10] LABS: MEAN CORPUSCULAR HGB CONC 31.4 g/dL (32.0-36.0); MEAN CORPUSCULAR VOLUME 98.9 fL (79-99); RED BLOOD CELL COUNT(AUTO) 3.74 MIL/uL (4.50-6.20); RED CELL DISTRIBUTION WIDTH 14.5 % (11.0-15.5); WHITE BLOOD COUNT (AUTO) 10.5 K/uL (4.8-10.8)
[2021-06-20 04:31] LABS: CREATININE 0.9 mg/dL (0.5-1.5); POTASSIUM 3.8 mmol/L (3.5-5.1)
[2021-06-20] MEDS: INSULIN HUMULIN R 100 UNIT/ML 3ML SQ SCH ×7 (06:06→20:31)
[2021-06-20] MEDS: BUSPIRONE HCL 5 MG TABLET PO SCH ×3 (06:07→20:47)
[2021-06-20] MEDS: KCL 20 MEQ ERTAB PO PRN ×2 (06:07→13:56)
[2021-06-20] MEDS: ENOXAPARIN SODIUM 40 MG/0.4 ML SYRINGE SQ SCH ×2 (08:57→20:09)
[2021-06-20] MEDS: DEXAMETHASONE SOD PHOSPHATE 4 MG/ML 1ML VIAL IVP SCH (08:57)
[2021-06-20] MEDS: DOCUSATE SODIUM 100 MG CAP PO SCH ×2 (08:57→20:08)
[2021-06-20] MEDS: SENNOSIDES 8.6 MG TABLET PO SCH ×2 (08:58→09:00)
[2021-06-20] MEDS: ZINC SULFATE 220 CAPSULE PO SCH (08:58)
[2021-06-20] MEDS: METOPROLOL TARTRATE 25 MG TAB PO SCH ×2 (08:58→20:34)
[2021-06-20] MEDS: FUROSEMIDE 40 MG TABLET PO SCH (08:58)
[2021-06-20] MEDS: NACL NASAL SPRAY 120 SPRAY/BOTTLE NS SCH ×2 (08:58→20:32)
[2021-06-20] MEDS: ASCORBIC ACID 500 MG TAB PO SCH (08:58)
[2021-06-20] MEDS: POLYETHYLENE GLYCOL 3350 17 GM POWD.PACK PO SCH (08:58)
[2021-06-20] MEDS: FLUTICASONE PROPIONATE 50MCG/SPRAY 16 GM BOTTLE EN SCH ×2 (08:59→20:32)
[2021-06-20] MEDS: INSULIN GLARGINE 100 UNITS/ML 10 ML VIAL SQ SCH (20:33)
[2021-06-21 03:49] VITALS: BP 139/75
[2021-06-21 03:59] LABS: BASOPHILS % (AUTO) 0.7 % (0.0-5.0); EOSINOPHILS % (AUTO) 1.3 % (0.0-8.0); LYMPHOCYTES % (AUTO) 21.9 % (21.0-51.0); MEAN CORPUSCULAR HEMOGLOBIN 31.2 pg (27.0-33.0); MEAN CORPUSCULAR VOLUME 100.8 fL (79-99); MONOCYTES % (AUTO) 5.4 % (3.0-13.0); NEUTROPHILS % (AUTO) 64.2 % (40.0-77.0); PLATELET COUNT (AUTO) 255 K/uL (130-400); RED BLOOD CELL COUNT(AUTO) 3.97 MIL/uL (4.50-6.20); RED CELL DISTRIBUTION WIDTH 14.6 % (11.0-15.5); WHITE BLOOD COUNT (AUTO) 11.2 K/uL (4.8-10.8)
[2021-06-21 04:22] LABS: ALBUMIN 2.8 g/dL (3.5-5.0); BILIRUBIN,TOTAL 0.7 mg/dL (0.2-1.0); CREATININE 0.7 mg/dL (0.5-1.5); TOTAL PROTEIN, SERUM 7.1 g/dL (6.0-8.3)
[2021-06-21] MEDS: INSULIN HUMULIN R 100 UNIT/ML 3ML SQ SCH ×7 (05:47→21:00)
[2021-06-21] MEDS: BUSPIRONE HCL 5 MG TABLET PO SCH ×3 (05:47→21:07)
[2021-06-21] MEDS: SENNOSIDES 8.6 MG TABLET PO SCH (07:53)
[2021-06-21] MEDS: METOPROLOL TARTRATE 25 MG TAB PO SCH ×2 (07:54→20:02)
[2021-06-21] MEDS: POLYETHYLENE GLYCOL 3350 17 GM POWD.PACK PO SCH (07:54)
[2021-06-21] MEDS: ENOXAPARIN SODIUM 40 MG/0.4 ML SYRINGE SQ SCH ×2 (07:54→20:02)
[2021-06-21] MEDS: ASCORBIC ACID 500 MG TAB PO SCH (07:54)
[2021-06-21] MEDS: DOCUSATE SODIUM 100 MG CAP PO SCH ×2 (07:54→20:02)
[2021-06-21] MEDS: FUROSEMIDE 40 MG TABLET PO SCH (07:54)
[2021-06-21] MEDS: ZINC SULFATE 220 CAPSULE PO SCH (07:54)
[2021-06-21] MEDS: DEXAMETHASONE SOD PHOSPHATE 4 MG/ML 1ML VIAL IVP SCH (07:55)
[2021-06-21 08:00] VITALS: BP 137/83
[2021-06-21] MEDS: FLUTICASONE PROPIONATE 50MCG/SPRAY 16 GM BOTTLE EN SCH ×2 (08:24→20:11)
[2021-06-21] MEDS: NACL NASAL SPRAY 120 SPRAY/BOTTLE NS SCH ×2 (08:24→20:11)
[2021-06-21] MEDS ORDERED: ALPRAZOLAM 0.25 MG TABLET PO PRN (09:00)
[2021-06-21 12:00] VITALS: BP 132/71
[2021-06-21 16:00] VITALS: BP 122/73
[2021-06-21] MEDS: ALPRAZOLAM 0.5 MG TABLET PO SCH (20:06)
[2021-06-21 20:28] VITALS: BP 152/68
[2021-06-21] MEDS: INSULIN GLARGINE 100 UNITS/ML 10 ML VIAL SQ SCH (21:07)
[2021-06-21 23:43] VITALS: BP 157/80
[2021-06-22 04:00] VITALS: BP 143/86
[2021-06-22 05:21] LABS: BASOPHILS % (AUTO) 0.2 % (0.0-5.0); EOSINOPHILS % (AUTO) 1.2 % (0.0-8.0); HEMATOCRIT 40.1 % (42-54); LYMPHOCYTES % (AUTO) 22.3 % (21.0-51.0); MEAN CORPUSCULAR HGB CONC 31.4 g/dL (32.0-36.0); MEAN CORPUSCULAR VOLUME 98.5 fL (79-99); MONOCYTES % (AUTO) 5.6 % (3.0-13.0); NEUTROPHILS % (AUTO) 62.8 % (40.0-77.0); PLATELET COUNT (AUTO) 261 K/uL (130-400); RED BLOOD CELL COUNT(AUTO) 4.07 MIL/uL (4.50-6.20); RED CELL DISTRIBUTION WIDTH 14.5 % (11.0-15.5); WHITE BLOOD COUNT (AUTO) 10.7 K/uL (4.8-10.8)
[2021-06-22] MEDS: BUSPIRONE HCL 5 MG TABLET PO SCH ×3 (05:31→20:35)
[2021-06-22 05:35] LABS: ALBUMIN 2.7 g/dL (3.5-5.0); BILIRUBIN,TOTAL 0.6 mg/dL (0.2-1.0); CREATININE 0.7 mg/dL (0.5-1.5); POTASSIUM 4.1 mmol/L (3.5-5.1); TOTAL PROTEIN, SERUM 7.1 g/dL (6.0-8.3)
[2021-06-22] MEDS: INSULIN HUMULIN R 100 UNIT/ML 3ML SQ SCH ×7 (06:15→20:41)
[2021-06-22 07:26] VITALS: BP 133/91
[2021-06-22] MEDS: ENOXAPARIN SODIUM 40 MG/0.4 ML SYRINGE SQ SCH (09:00)
[2021-06-22] MEDS: POLYETHYLENE GLYCOL 3350 17 GM POWD.PACK PO SCH (09:43)
[2021-06-22] MEDS: SENNOSIDES 8.6 MG TABLET PO SCH (09:44)
[2021-06-22] MEDS: DOCUSATE SODIUM 100 MG CAP PO SCH ×2 (09:44→20:35)
[2021-06-22] MEDS: DEXAMETHASONE SOD PHOSPHATE 4 MG/ML 1ML VIAL IVP SCH (09:44)
[2021-06-22] MEDS: ASCORBIC ACID 500 MG TAB PO SCH (09:44)
[2021-06-22] MEDS: FUROSEMIDE 40 MG TABLET PO SCH (09:44)
[2021-06-22] MEDS: ZINC SULFATE 220 CAPSULE PO SCH (09:44)
[2021-06-22] MEDS: FLUTICASONE PROPIONATE 50MCG/SPRAY 16 GM BOTTLE EN SCH ×2 (09:46→20:54)
[2021-06-22] MEDS: METOPROLOL TARTRATE 25 MG TAB PO SCH ×2 (09:46→20:35)
[2021-06-22] MEDS: NACL NASAL SPRAY 120 SPRAY/BOTTLE NS SCH ×2 (09:46→20:54)
[2021-06-22] MEDS: PANTOPRAZOLE 40 MG/VIAL IVP SCH ×2 (09:55→20:35)
[2021-06-22 10:12] LABS: BASOPHILS % (AUTO) 0.9 % (0.0-5.0); EOSINOPHILS % (AUTO) 1.1 % (0.0-8.0); LYMPHOCYTES % (AUTO) 22.3 % (21.0-51.0); MEAN CORPUSCULAR HEMOGLOBIN 31.6 pg (27.0-33.0); MEAN CORPUSCULAR HGB CONC 32.3 g/dL (32.0-36.0); MONOCYTES % (AUTO) 5.6 % (3.0-13.0); NEUTROPHILS % (AUTO) 63.5 % (40.0-77.0); PLATELET COUNT (AUTO) 274 K/uL (130-400); RED BLOOD CELL COUNT(AUTO) 4.08 MIL/uL (4.50-6.20); RED CELL DISTRIBUTION WIDTH 14.6 % (11.0-15.5); WHITE BLOOD COUNT (AUTO) 12.8 K/uL (4.8-10.8)
[2021-06-22 10:23] LABS: INR 1.11 (0.85-1.15)
[2021-06-22 10:25] LABS: PARTIAL THROMBOPLASTIN TIME 28.5 SEC (26.3-35.5)
[2021-06-22 11:20] VITALS: BP 136/82
[2021-06-22 15:16] VITALS: BP 117/69
[2021-06-22 20:02] VITALS: BP 131/80
[2021-06-22] MEDS: ALPRAZOLAM 0.5 MG TABLET PO SCH ×2 (20:35→20:54)
[2021-06-22] MEDS: INSULIN GLARGINE 100 UNITS/ML 10 ML VIAL SQ SCH (20:41)
[2021-06-22 23:56] VITALS: BP 129/84
[2021-06-23 03:48] LABS: BASOPHILS % (AUTO) 0.7 % (0.0-5.0); EOSINOPHILS % (AUTO) 1.1 % (0.0-8.0); HEMATOCRIT 37.7 % (42-54); LYMPHOCYTES % (AUTO) 20.6 % (21.0-51.0); MEAN CORPUSCULAR HEMOGLOBIN 31.5 pg (27.0-33.0); MEAN CORPUSCULAR HGB CONC 32.1 g/dL (32.0-36.0); MEAN CORPUSCULAR VOLUME 98.2 fL (79-99); MONOCYTES % (AUTO) 6.2 % (3.0-13.0); NEUTROPHILS % (AUTO) 64.9 % (40.0-77.0); PLATELET COUNT (AUTO) 276 K/uL (130-400); RED BLOOD CELL COUNT(AUTO) 3.84 MIL/uL (4.50-6.20); RED CELL DISTRIBUTION WIDTH 14.6 % (11.0-15.5); WHITE BLOOD COUNT (AUTO) 11.9 K/uL (4.8-10.8)
[2021-06-23 04:02] LABS: ALBUMIN 2.7 g/dL (3.5-5.0); BILIRUBIN,TOTAL 0.6 mg/dL (0.2-1.0); CREATININE 0.7 mg/dL (0.5-1.5); POTASSIUM 3.4 mmol/L (3.5-5.1)
[2021-06-23 04:08] VITALS: BP 126/79
[2021-06-23] MEDS: INSULIN HUMULIN R 100 UNIT/ML 3ML SQ SCH ×7 (05:55→20:45)
[2021-06-23] MEDS: KCL 20 MEQ ERTAB PO PRN ×2 (05:59→10:00)
[2021-06-23] MEDS: BUSPIRONE HCL 5 MG TABLET PO SCH ×3 (05:59→21:15)
[2021-06-23 07:22] VITALS: BP 128/71
[2021-06-23] MEDS: SENNOSIDES 8.6 MG TABLET PO SCH ×2 (09:00→09:31)
[2021-06-23] MEDS: FLUTICASONE PROPIONATE 50MCG/SPRAY 16 GM BOTTLE EN SCH ×2 (09:00→21:17)
[2021-06-23] MEDS: DOCUSATE SODIUM 100 MG CAP PO SCH ×2 (09:30→21:15)
[2021-06-23] MEDS: METOPROLOL TARTRATE 25 MG TAB PO SCH ×2 (09:31→21:15)
[2021-06-23] MEDS: ASCORBIC ACID 500 MG TAB PO SCH (09:31)
[2021-06-23] MEDS: FUROSEMIDE 40 MG TABLET PO SCH (09:31)
[2021-06-23] MEDS: POLYETHYLENE GLYCOL 3350 17 GM POWD.PACK PO SCH (09:31)
[2021-06-23] MEDS: ZINC SULFATE 220 CAPSULE PO SCH (09:31)
[2021-06-23] MEDS: DEXAMETHASONE SOD PHOSPHATE 4 MG/ML 1ML VIAL IVP SCH (09:32)
[2021-06-23] MEDS: NACL NASAL SPRAY 120 SPRAY/BOTTLE NS SCH ×2 (09:32→21:17)
[2021-06-23] MEDS: PANTOPRAZOLE 40 MG TAB DR PO SCH (09:59)
[2021-06-23 11:32] VITALS: BP 116/76
[2021-06-23 15:41] VITALS: BP 139/74
[2021-06-23 20:24] VITALS: BP 130/85
[2021-06-23] MEDS: ALPRAZOLAM 0.5 MG TABLET PO SCH ×2 (21:00→21:15)
[2021-06-23] MEDS: ENOXAPARIN SODIUM 40 MG/0.4 ML SYRINGE SQ SCH (21:16)
[2021-06-23] MEDS: INSULIN GLARGINE 100 UNITS/ML 10 ML VIAL SQ SCH (21:17)
[2021-06-23 23:56] VITALS: BP 129/78
[2021-06-24 03:46] VITALS: BP 116/68
[2021-06-24 03:53] LABS: LYMPHOCYTES % (AUTO) 24.3 % (21.0-51.0); MEAN CORPUSCULAR HEMOGLOBIN 31.3 pg (27.0-33.0); MEAN CORPUSCULAR HGB CONC 31.6 g/dL (32.0-36.0); MEAN CORPUSCULAR VOLUME 98.9 fL (79-99); MONOCYTES % (AUTO) 7.3 % (3.0-13.0); NEUTROPHILS % (AUTO) 58.6 % (40.0-77.0); PLATELET COUNT (AUTO) 283 K/uL (130-400); RED BLOOD CELL COUNT(AUTO) 3.74 MIL/uL (4.50-6.20); RED CELL DISTRIBUTION WIDTH 14.4 % (11.0-15.5); WHITE BLOOD COUNT (AUTO) 9.1 K/uL (4.8-10.8)
[2021-06-24 04:11] LABS: ALBUMIN 2.6 g/dL (3.5-5.0); BILIRUBIN,TOTAL 0.6 mg/dL (0.2-1.0); CREATININE 0.7 mg/dL (0.5-1.5); POTASSIUM 3.7 mmol/L (3.5-5.1); TOTAL PROTEIN, SERUM 6.9 g/dL (6.0-8.3)
[2021-06-24] MEDS: INSULIN HUMULIN R 100 UNIT/ML 3ML SQ SCH ×7 (05:27→20:35)
[2021-06-24] MEDS: BUSPIRONE HCL 5 MG TABLET PO SCH ×3 (07:27→20:33)
[2021-06-24 07:37] VITALS: BP 125/74
[2021-06-24] MEDS: SENNOSIDES 8.6 MG TABLET PO SCH (09:00)
[2021-06-24] MEDS: FLUTICASONE PROPIONATE 50MCG/SPRAY 16 GM BOTTLE EN SCH ×2 (09:00→20:36)
[2021-06-24] MEDS: FUROSEMIDE 40 MG TABLET PO SCH (09:48)
[2021-06-24] MEDS: ASCORBIC ACID 500 MG TAB PO SCH (09:48)
[2021-06-24] MEDS: ZINC SULFATE 220 CAPSULE PO SCH (09:48)
[2021-06-24] MEDS: DOCUSATE SODIUM 100 MG CAP PO SCH ×2 (09:48→20:33)
[2021-06-24] MEDS: KCL 20 MEQ ERTAB PO PRN (09:49)
[2021-06-24] MEDS: METOPROLOL TARTRATE 25 MG TAB PO SCH ×2 (09:49→20:33)
[2021-06-24] MEDS: POLYETHYLENE GLYCOL 3350 17 GM POWD.PACK PO SCH (09:49)
[2021-06-24] MEDS: PANTOPRAZOLE 40 MG TAB DR PO SCH (09:49)
[2021-06-24] MEDS: NACL NASAL SPRAY 120 SPRAY/BOTTLE NS SCH ×2 (09:49→20:36)
[2021-06-24] MEDS: DEXAMETHASONE SOD PHOSPHATE 4 MG/ML 1ML VIAL IVP SCH (09:50)
[2021-06-24] MEDS: ENOXAPARIN SODIUM 40 MG/0.4 ML SYRINGE SQ SCH (09:51)
[2021-06-24 11:29] VITALS: BP 122/73
[2021-06-24 15:31] VITALS: BP 135/78
[2021-06-24 19:42] VITALS: BP 129/76
[2021-06-24] MEDS: INSULIN GLARGINE 100 UNITS/ML 10 ML VIAL SQ SCH (20:31)
[2021-06-24] MEDS: ALPRAZOLAM 0.5 MG TABLET PO SCH (20:33)
[2021-06-24 23:36] VITALS: BP 120/75
[2021-06-25 04:00] VITALS: BP 135/72
[2021-06-25 04:30] LABS: BASOPHILS % (AUTO) 1.1 % (0.0-5.0); EOSINOPHILS % (AUTO) 1.2 % (0.0-8.0); HEMATOCRIT 39.4 % (42-54); LYMPHOCYTES % (AUTO) 23.8 % (21.0-51.0); MEAN CORPUSCULAR HGB CONC 31.2 g/dL (32.0-36.0); MEAN CORPUSCULAR VOLUME 99.2 fL (79-99); MONOCYTES % (AUTO) 7.6 % (3.0-13.0); NEUTROPHILS % (AUTO) 58.2 % (40.0-77.0); PLATELET COUNT (AUTO) 264 K/uL (130-400); RED BLOOD CELL COUNT(AUTO) 3.97 MIL/uL (4.50-6.20); RED CELL DISTRIBUTION WIDTH 14.5 % (11.0-15.5)
[2021-06-25 04:47] LABS: ALBUMIN 2.7 g/dL (3.5-5.0); BILIRUBIN,TOTAL 0.7 mg/dL (0.2-1.0); CREATININE 0.9 mg/dL (0.5-1.5)
[2021-06-25] MEDS: BUSPIRONE HCL 5 MG TABLET PO SCH ×3 (05:46→20:07)
[2021-06-25] MEDS: INSULIN HUMULIN R 100 UNIT/ML 3ML SQ SCH ×7 (05:48→20:08)
[2021-06-25 07:38] VITALS: BP 137/84
[2021-06-25] MEDS: SENNOSIDES 8.6 MG TABLET PO SCH (07:52)
[2021-06-25] MEDS: FLUTICASONE PROPIONATE 50MCG/SPRAY 16 GM BOTTLE EN SCH ×2 (07:52→20:08)
[2021-06-25] MEDS: NACL NASAL SPRAY 120 SPRAY/BOTTLE NS SCH ×2 (07:52→20:09)
[2021-06-25] MEDS: DOCUSATE SODIUM 100 MG CAP PO SCH ×2 (08:36→20:07)
[2021-06-25] MEDS: PANTOPRAZOLE 40 MG TAB DR PO SCH (08:36)
[2021-06-25] MEDS: METOPROLOL TARTRATE 25 MG TAB PO SCH ×2 (08:36→20:08)
[2021-06-25] MEDS: ZINC SULFATE 220 CAPSULE PO SCH (08:36)
[2021-06-25] MEDS: ASCORBIC ACID 500 MG TAB PO SCH (08:36)
[2021-06-25] MEDS: DEXAMETHASONE SOD PHOSPHATE 4 MG/ML 1ML VIAL IVP SCH (08:37)
[2021-06-25] MEDS: FUROSEMIDE 40 MG TABLET PO SCH (08:37)
[2021-06-25] MEDS: POLYETHYLENE GLYCOL 3350 17 GM POWD.PACK PO SCH (08:37)
[2021-06-25] MEDS: ENOXAPARIN SODIUM 40 MG/0.4 ML SYRINGE SQ SCH (08:38)
[2021-06-25 11:10] VITALS: BP 114/73
[2021-06-25] MEDS ORDERED: ACETAMINOPHEN 325 MG TAB ONE (13:28)
[2021-06-25] MEDS: TRAMADOL HCL 50 MG TABLET PO PRN (15:11)
[2021-06-25 15:34] VITALS: BP 119/66
[2021-06-25 19:28] VITALS: BP 131/83
[2021-06-25] MEDS: INSULIN GLARGINE 100 UNITS/ML 10 ML VIAL SQ SCH (20:07)
[2021-06-25] MEDS: ALPRAZOLAM 0.5 MG TABLET PO SCH (20:08)
[2021-06-25 23:43] VITALS: BP 127/79
[2021-06-26 03:43] VITALS: BP 130/73
[2021-06-26 04:32] LABS: BASOPHILS % (AUTO) 1.1 % (0.0-5.0); EOSINOPHILS % (AUTO) 1.7 % (0.0-8.0); HEMATOCRIT 34.9 % (42-54); MEAN CORPUSCULAR HEMOGLOBIN 31.1 pg (27.0-33.0); MEAN CORPUSCULAR HGB CONC 31.5 g/dL (32.0-36.0); MEAN CORPUSCULAR VOLUME 98.6 fL (79-99); MONOCYTES % (AUTO) 7.3 % (3.0-13.0); NEUTROPHILS % (AUTO) 57.8 % (40.0-77.0); NUCLEATED RED BLOOD CELLS 0.2 % (0.0-0.19); PLATELET COUNT (AUTO) 277 K/uL (130-400); RED BLOOD CELL COUNT(AUTO) 3.54 MIL/uL (4.50-6.20); RED CELL DISTRIBUTION WIDTH 14.6 % (11.0-15.5); WHITE BLOOD COUNT (AUTO) 10.8 K/uL (4.8-10.8)
[2021-06-26 05:12] LABS: CREATININE 0.6 mg/dL (0.5-1.5); POTASSIUM 3.5 mmol/L (3.5-5.1)
[2021-06-26] MEDS: BUSPIRONE HCL 5 MG TABLET PO SCH ×3 (05:33→21:44)
[2021-06-26] MEDS: KCL 20 MEQ ERTAB PO PRN ×2 (05:33→09:54)
[2021-06-26] MEDS: INSULIN HUMULIN R 100 UNIT/ML 3ML SQ SCH ×6 (05:42→21:49)
[2021-06-26 08:00] VITALS: BP 140/70
[2021-06-26] MEDS: DOCUSATE SODIUM 100 MG CAP PO SCH ×2 (09:43→21:45)
[2021-06-26] MEDS: DEXAMETHASONE SOD PHOSPHATE 4 MG/ML 1ML VIAL IVP SCH (09:43)
[2021-06-26] MEDS: ENOXAPARIN SODIUM 40 MG/0.4 ML SYRINGE SQ SCH (09:43)
[2021-06-26] MEDS: SENNOSIDES 8.6 MG TABLET PO SCH (09:43)
[2021-06-26] MEDS: ZINC SULFATE 220 CAPSULE PO SCH (09:44)
[2021-06-26] MEDS: POLYETHYLENE GLYCOL 3350 17 GM POWD.PACK PO SCH (09:44)
[2021-06-26] MEDS: FLUTICASONE PROPIONATE 50MCG/SPRAY 16 GM BOTTLE EN SCH ×2 (09:45→21:56)
[2021-06-26] MEDS: FUROSEMIDE 40 MG TABLET PO SCH (09:45)
[2021-06-26] MEDS: METOPROLOL TARTRATE 25 MG TAB PO SCH ×2 (09:45→21:46)
[2021-06-26] MEDS: NACL NASAL SPRAY 120 SPRAY/BOTTLE NS SCH ×2 (09:45→21:57)
[2021-06-26] MEDS: ASCORBIC ACID 500 MG TAB PO SCH (09:46)
[2021-06-26] MEDS: PANTOPRAZOLE 40 MG TAB DR PO SCH (09:46)
[2021-06-26] MEDS ORDERED: ALPRAZOLAM 0.5 MG TABLET PO PRN (11:30)
[2021-06-26 12:42] VITALS: BP 142/72
[2021-06-26 16:00] VITALS: BP 132/68
[2021-06-26 20:00] VITALS: BP 141/77
[2021-06-26] MEDS: INSULIN GLARGINE 100 UNITS/ML 10 ML VIAL SQ SCH (21:51)
[2021-06-27] VITALS: BP 134/98
[2021-06-27 03:51] LABS: BASOPHILS % (AUTO) 1.1 % (0.0-5.0); EOSINOPHILS % (AUTO) 1.3 % (0.0-8.0); HEMATOCRIT 37.3 % (42-54); LYMPHOCYTES % (AUTO) 23.7 % (21.0-51.0); MEAN CORPUSCULAR HEMOGLOBIN 31.5 pg (27.0-33.0); MEAN CORPUSCULAR HGB CONC 31.6 g/dL (32.0-36.0); MEAN CORPUSCULAR VOLUME 99.5 fL (79-99); MONOCYTES % (AUTO) 7.5 % (3.0-13.0); NUCLEATED RED BLOOD CELLS 0.2 % (0.0-0.19); PLATELET COUNT (AUTO) 314 K/uL (130-400); RED BLOOD CELL COUNT(AUTO) 3.75 MIL/uL (4.50-6.20); RED CELL DISTRIBUTION WIDTH 14.6 % (11.0-15.5); WHITE BLOOD COUNT (AUTO) 10.6 K/uL (4.8-10.8)
[2021-06-27 04:00] VITALS: BP 139/67
[2021-06-27 04:11] LABS: ALBUMIN 2.6 g/dL (3.5-5.0); BILIRUBIN,TOTAL 0.6 mg/dL (0.2-1.0); CREATININE 0.9 mg/dL (0.5-1.5); POTASSIUM 3.7 mmol/L (3.5-5.1)
[2021-06-27] MEDS: BUSPIRONE HCL 5 MG TABLET PO SCH ×3 (05:07→21:51)
[2021-06-27] MEDS: INSULIN HUMULIN R 100 UNIT/ML 3ML SQ SCH ×7 (06:13→21:49)
[2021-06-27 08:00] VITALS: BP 157/86
[2021-06-27] MEDS: DEXAMETHASONE SOD PHOSPHATE 4 MG/ML 1ML VIAL IVP SCH (08:04)
[2021-06-27] MEDS: ASCORBIC ACID 500 MG TAB PO SCH (08:04)
[2021-06-27] MEDS: PANTOPRAZOLE 40 MG TAB DR PO SCH (08:04)
[2021-06-27] MEDS: ZINC SULFATE 220 CAPSULE PO SCH (08:04)
[2021-06-27] MEDS: PAROXETINE HCL 20 MG TABLET PO SCH (08:04)
[2021-06-27] MEDS: NACL NASAL SPRAY 120 SPRAY/BOTTLE NS SCH ×2 (08:05→21:47)
[2021-06-27] MEDS: FUROSEMIDE 40 MG TABLET PO SCH (08:05)
[2021-06-27] MEDS: POLYETHYLENE GLYCOL 3350 17 GM POWD.PACK PO SCH (08:05)
[2021-06-27] MEDS: FLUTICASONE PROPIONATE 50MCG/SPRAY 16 GM BOTTLE EN SCH ×2 (08:05→21:47)
[2021-06-27] MEDS: DOCUSATE SODIUM 100 MG CAP PO SCH ×2 (08:05→19:27)
[2021-06-27] MEDS: METOPROLOL TARTRATE 25 MG TAB PO SCH ×2 (08:05→21:48)
[2021-06-27 12:00] VITALS: BP 133/68
[2021-06-27] MEDS: SODIUM CHLORIDE 7% INHALATION 4 ML VIAL.NEB IH SCH ×2 (14:00→22:00)
[2021-06-27] MEDS: ALBUTEROL 0.083% 2.5 MG/3 ML INH IH SCH ×2 (14:00→22:00)
[2021-06-27 16:00] VITALS: BP 121/79
[2021-06-27 20:00] VITALS: BP 138/76
[2021-06-27] MEDS: INSULIN GLARGINE 100 UNITS/ML 10 ML VIAL SQ SCH (21:50)
[2021-06-28] VITALS: BP 133/80
[2021-06-28 04:00] VITALS: BP 148/84
[2021-06-28 04:44] LABS: CRP QUANTITATIVE 90.8 mg/L (0.00-9.0)
[2021-06-28] MEDS: ALBUTEROL 0.083% 2.5 MG/3 ML INH IH SCH ×4 (05:02→21:59)
[2021-06-28] MEDS: SODIUM CHLORIDE 7% INHALATION 4 ML VIAL.NEB IH SCH ×6 (05:02→22:00)
[2021-06-28] MEDS: BUSPIRONE HCL 5 MG TABLET PO SCH ×3 (06:30→20:28)
[2021-06-28] MEDS: INSULIN HUMULIN R 100 UNIT/ML 3ML SQ SCH ×7 (07:30→20:27)
[2021-06-28] MEDS ORDERED: DEXAMETHASONE SOD PHOSPHATE 4 MG/ML 1ML VIAL IVP SCH (09:00)
[2021-06-28] MEDS: METOPROLOL TARTRATE 25 MG TAB PO SCH ×2 (09:23→20:23)
[2021-06-28] MEDS: DOCUSATE SODIUM 100 MG CAP PO SCH ×2 (09:23→20:23)
[2021-06-28] MEDS: PANTOPRAZOLE 40 MG TAB DR PO SCH (09:23)
[2021-06-28] MEDS: DEXAMETHASONE SOD PHOSPHATE 4 MG/ML 1ML VIAL IVP SCH (09:23)
[2021-06-28] MEDS: FUROSEMIDE 40 MG TABLET PO SCH (09:23)
[2021-06-28] MEDS: PAROXETINE HCL 20 MG TABLET PO SCH (09:23)
[2021-06-28] MEDS: ASCORBIC ACID 500 MG TAB PO SCH (09:24)
[2021-06-28] MEDS: POLYETHYLENE GLYCOL 3350 17 GM POWD.PACK PO SCH (09:24)
[2021-06-28] MEDS: ZINC SULFATE 220 CAPSULE PO SCH (09:24)
[2021-06-28] MEDS: FLUTICASONE PROPIONATE 50MCG/SPRAY 16 GM BOTTLE EN SCH ×2 (09:25→20:23)
[2021-06-28] MEDS: NACL NASAL SPRAY 120 SPRAY/BOTTLE NS SCH ×2 (09:25→20:23)
[2021-06-28 10:52] LABS: CREATININE 0.7 mg/dL (0.5-1.5); POTASSIUM 3.6 mmol/L (3.5-5.1)
[2021-06-28] MEDS ORDERED: ALBUTEROL 0.083% 2.5 MG/3 ML INH IH SCH (14:00)
[2021-06-28 20:00] VITALS: BP 136/80
[2021-06-28] MEDS: INSULIN GLARGINE 100 UNITS/ML 10 ML VIAL SQ SCH (20:29)
[2021-06-29] VITALS: BP 122/75
[2021-06-29 04:00] VITALS: BP 132/74
[2021-06-29] MEDS: SODIUM CHLORIDE 7% INHALATION 4 ML VIAL.NEB IH SCH ×6 (06:00→22:00)
[2021-06-29 06:05] LABS: BASOPHILS % (AUTO) 0.9 % (0.0-5.0); EOSINOPHILS % (AUTO) 1.3 % (0.0-8.0); HEMATOCRIT 37.5 % (42-54); LYMPHOCYTES % (AUTO) 24.2 % (21.0-51.0); MEAN CORPUSCULAR HEMOGLOBIN 30.2 pg (27.0-33.0); MEAN CORPUSCULAR HGB CONC 30.7 g/dL (32.0-36.0); MEAN CORPUSCULAR VOLUME 98.4 fL (79-99); MONOCYTES % (AUTO) 8.5 % (3.0-13.0); NEUTROPHILS % (AUTO) 57.7 % (40.0-77.0); PLATELET COUNT (AUTO) 385 K/uL (130-400); RED BLOOD CELL COUNT(AUTO) 3.81 MIL/uL (4.50-6.20); RED CELL DISTRIBUTION WIDTH 14.6 % (11.0-15.5); WHITE BLOOD COUNT (AUTO) 11.2 K/uL (4.8-10.8)
[2021-06-29 06:15] LABS: CREATININE 0.8 mg/dL (0.5-1.5); CRP QUANTITATIVE 71.8 mg/L (0.00-9.0); POTASSIUM 3.5 mmol/L (3.5-5.1)
[2021-06-29] MEDS: ALBUTEROL 0.083% 2.5 MG/3 ML INH IH SCH ×3 (06:35→21:53)
[2021-06-29] MEDS: BUSPIRONE HCL 5 MG TABLET PO SCH ×3 (06:43→20:45)
[2021-06-29] MEDS: INSULIN HUMULIN R 100 UNIT/ML 3ML SQ SCH ×7 (06:44→20:37)
[2021-06-29 07:40] VITALS: BP 132/74
[2021-06-29] MEDS: ASCORBIC ACID 500 MG TAB PO SCH (08:28)
[2021-06-29] MEDS: DEXAMETHASONE SOD PHOSPHATE 4 MG/ML 1ML VIAL IVP SCH (08:28)
[2021-06-29] MEDS: ZINC SULFATE 220 CAPSULE PO SCH (08:28)
[2021-06-29] MEDS: DOCUSATE SODIUM 100 MG CAP PO SCH ×2 (08:28→20:36)
[2021-06-29] MEDS: PANTOPRAZOLE 40 MG TAB DR PO SCH (08:28)
[2021-06-29] MEDS: METOPROLOL TARTRATE 25 MG TAB PO SCH ×2 (08:28→20:36)
[2021-06-29] MEDS: FUROSEMIDE 40 MG TABLET PO SCH (08:28)
[2021-06-29] MEDS: POLYETHYLENE GLYCOL 3350 17 GM POWD.PACK PO SCH ×2 (08:29→08:43)
[2021-06-29] MEDS: PAROXETINE HCL 20 MG TABLET PO SCH (08:29)
[2021-06-29] MEDS: KCL 20 MEQ ERTAB PO PRN (08:39)
[2021-06-29] MEDS: TRAMADOL HCL 50 MG TABLET PO PRN (08:41)
[2021-06-29] MEDS: FLUTICASONE PROPIONATE 50MCG/SPRAY 16 GM BOTTLE EN SCH ×2 (08:43→20:38)
[2021-06-29] MEDS: NACL NASAL SPRAY 120 SPRAY/BOTTLE NS SCH ×2 (08:43→20:38)
[2021-06-29 12:00] VITALS: BP 123/72
[2021-06-29 16:00] VITALS: BP 132/73
[2021-06-29 20:00] VITALS: BP 128/73
[2021-06-29] MEDS: INSULIN GLARGINE 100 UNITS/ML 10 ML VIAL SQ SCH (20:37)
[2021-06-30] VITALS (7 sets, daily range): BP systolic 98–135; BP diastolic 54–78
[2021-06-30] MEDS: INSULIN HUMULIN R 100 UNIT/ML 3ML SQ SCH ×7 (05:57→20:19)
[2021-06-30] MEDS: SODIUM CHLORIDE 7% INHALATION 4 ML VIAL.NEB IH SCH ×5 (06:00→21:34)
[2021-06-30] MEDS: BUSPIRONE HCL 5 MG TABLET PO SCH ×3 (06:00→22:07)
[2021-06-30] MEDS: ALBUTEROL 0.083% 2.5 MG/3 ML INH IH SCH ×3 (07:14→21:34)
[2021-06-30] MEDS: DEXAMETHASONE SOD PHOSPHATE 4 MG/ML 1ML VIAL IVP SCH (08:09)
[2021-06-30] MEDS: POLYETHYLENE GLYCOL 3350 17 GM POWD.PACK PO SCH (08:09)
[2021-06-30] MEDS: METOPROLOL TARTRATE 25 MG TAB PO SCH ×2 (08:10→20:18)
[2021-06-30] MEDS: DOCUSATE SODIUM 100 MG CAP PO SCH ×2 (08:10→20:18)
[2021-06-30] MEDS: ASCORBIC ACID 500 MG TAB PO SCH (08:10)
[2021-06-30] MEDS: FUROSEMIDE 40 MG TABLET PO SCH (08:10)
[2021-06-30] MEDS: ZINC SULFATE 220 CAPSULE PO SCH (08:10)
[2021-06-30] MEDS: PANTOPRAZOLE 40 MG TAB DR PO SCH (08:10)
[2021-06-30] MEDS: FLUTICASONE PROPIONATE 50MCG/SPRAY 16 GM BOTTLE EN SCH (08:11)
[2021-06-30] MEDS: PAROXETINE HCL 20 MG TABLET PO SCH (08:11)
[2021-06-30] MEDS: NACL NASAL SPRAY 120 SPRAY/BOTTLE NS SCH (08:11)
[2021-06-30] MEDS: TRAMADOL HCL 50 MG TABLET PO PRN (08:58)
[2021-06-30] MEDS ORDERED: LIDOCAINE 5% TOPICAL PATCH TP SCH (11:00)
[2021-06-30] MEDS: IBUPROFEN 600 MG TABLET PO SCH ×2 (11:14→20:26)
[2021-06-30] MEDS: ENOXAPARIN SODIUM 40 MG/0.4 ML SYRINGE SQ SCH (20:18)
[2021-06-30] MEDS: INSULIN GLARGINE 100 UNITS/ML 10 ML VIAL SQ SCH (20:24)
[2021-07-01 03:11] VITALS: BP 97/51
[2021-07-01] MEDS: BUSPIRONE HCL 5 MG TABLET PO SCH ×3 (05:59→20:59)
[2021-07-01] MEDS: SODIUM CHLORIDE 7% INHALATION 4 ML VIAL.NEB IH SCH (06:00)
[2021-07-01] MEDS: INSULIN HUMULIN R 100 UNIT/ML 3ML SQ SCH ×7 (06:37→20:20)
[2021-07-01] MEDS: ALBUTEROL 0.083% 2.5 MG/3 ML INH IH SCH ×3 (07:10→21:53)
[2021-07-01 08:06] VITALS: BP 136/69
[2021-07-01] MEDS: POLYETHYLENE GLYCOL 3350 17 GM POWD.PACK PO SCH (09:00)
[2021-07-01] MEDS: PANTOPRAZOLE 40 MG TAB DR PO SCH (09:09)
[2021-07-01] MEDS: PAROXETINE HCL 20 MG TABLET PO SCH (09:09)
[2021-07-01] MEDS: ZINC SULFATE 220 CAPSULE PO SCH (09:09)
[2021-07-01] MEDS: DEXAMETHASONE SOD PHOSPHATE 4 MG/ML 1ML VIAL IVP SCH (09:09)
[2021-07-01] MEDS: DOCUSATE SODIUM 100 MG CAP PO SCH ×2 (09:09→20:23)
[2021-07-01] MEDS: METOPROLOL TARTRATE 25 MG TAB PO SCH ×2 (09:09→20:24)
[2021-07-01] MEDS: ASCORBIC ACID 500 MG TAB PO SCH (09:09)
[2021-07-01] MEDS: FUROSEMIDE 40 MG TABLET PO SCH (09:10)
[2021-07-01] MEDS: ENOXAPARIN SODIUM 40 MG/0.4 ML SYRINGE SQ SCH ×2 (09:11→20:23)
[2021-07-01] MEDS ORDERED: LIDOCAINE 5% TOPICAL PATCH TP PRN (10:00)
[2021-07-01] MEDS ORDERED: IBUPROFEN 600 MG TABLET PO PRN (10:00)
[2021-07-01 11:50] VITALS: BP 123/63
[2021-07-01 16:00] VITALS: BP 128/52
[2021-07-01 19:37] VITALS: BP 120/73
[2021-07-01] MEDS: INSULIN GLARGINE 100 UNITS/ML 10 ML VIAL SQ SCH (20:22)
[2021-07-01 22:00] VITALS: BP 143/88
[2021-07-02 04:15] VITALS: BP 144/81
[2021-07-02 04:26] LABS: BASOPHILS % (AUTO) 0.7 % (0.0-5.0); EOSINOPHILS % (AUTO) 0.6 % (0.0-8.0); HEMATOCRIT 36.6 % (42-54); LYMPHOCYTES % (AUTO) 19.7 % (21.0-51.0); MEAN CORPUSCULAR HEMOGLOBIN 30.5 pg (27.0-33.0); MEAN CORPUSCULAR HGB CONC 31.4 g/dL (32.0-36.0); MEAN CORPUSCULAR VOLUME 97.1 fL (79-99); MONOCYTES % (AUTO) 9.3 % (3.0-13.0); NEUTROPHILS % (AUTO) 63.5 % (40.0-77.0); PLATELET COUNT (AUTO) 369 K/uL (130-400); RED BLOOD CELL COUNT(AUTO) 3.77 MIL/uL (4.50-6.20); RED CELL DISTRIBUTION WIDTH 14.3 % (11.0-15.5); WHITE BLOOD COUNT (AUTO) 13.8 K/uL (4.8-10.8)
[2021-07-02 05:06] LABS: ALBUMIN 2.5 g/dL (3.5-5.0); BILIRUBIN,TOTAL 0.6 mg/dL (0.2-1.0); CREATININE 0.8 mg/dL (0.5-1.5); MAGNESIUM 2.3 mg/dL (1.80-2.40); PHOSPHORUS 4.5 mg/dL (2.5-4.9); POTASSIUM 3.2 mmol/L (3.5-5.1); TOTAL PROTEIN, SERUM 7.3 g/dL (6.0-8.3)
[2021-07-02] MEDS: BUSPIRONE HCL 5 MG TABLET PO SCH ×2 (05:08→14:08)
[2021-07-02] MEDS: KCL 20 MEQ ERTAB PO PRN ×3 (06:31→12:02)
[2021-07-02] MEDS: INSULIN HUMULIN R 100 UNIT/ML 3ML SQ SCH ×4 (06:36→12:03)
[2021-07-02] MEDS: ALBUTEROL 0.083% 2.5 MG/3 ML INH IH SCH ×2 (06:37→14:02)
[2021-07-02] MEDS: ENOXAPARIN SODIUM 40 MG/0.4 ML SYRINGE SQ SCH (08:29)
[2021-07-02] MEDS: FUROSEMIDE 40 MG TABLET PO SCH (08:30)
[2021-07-02] MEDS: ZINC SULFATE 220 CAPSULE PO SCH (08:30)
[2021-07-02] MEDS: DOCUSATE SODIUM 100 MG CAP PO SCH (08:30)
[2021-07-02] MEDS: POLYETHYLENE GLYCOL 3350 17 GM POWD.PACK PO SCH (08:30)
[2021-07-02] MEDS: METOPROLOL TARTRATE 25 MG TAB PO SCH (08:30)
[2021-07-02] MEDS ORDERED: CEFTRIAXONE 2GM VIAL IVP SCH (08:30)
[2021-07-02] MEDS: PAROXETINE HCL 20 MG TABLET PO SCH (08:30)
[2021-07-02] MEDS: PANTOPRAZOLE 40 MG TAB DR PO SCH (08:31)
[2021-07-02] MEDS: DEXAMETHASONE SOD PHOSPHATE 4 MG/ML 1ML VIAL IVP SCH (08:31)
[2021-07-02] MEDS: ASCORBIC ACID 500 MG TAB PO SCH (08:31)
[2021-07-02 08:47] VITALS: BP 142/82
[2021-07-02 12:15] VITALS: BP 124/76
== END 2021-07-02 14:51 | DRG 177 ==
LOC: EDH 05:54 → EDHIP 08:24 → 2AH 09:20 → 2DH 05-19 17:00 → 2AH 06-01 17:00 → 2BH 06-27 18:50
PROVIDERS: ADMIT Hospitalist; ATTEND Hospitalist
PROC: XW033H5 Introduction of Tocilizumab into Peripheral Vein, Percutaneous Approach, New Technology Group 5 (ICD-10-PCS; 2021-05-14)
PROC: XW033E5 Introduction of Remdesivir Anti-infective into Peripheral Vein, Percutaneous Approach, New Technology Group 5 (ICD-10-PCS; 2021-05-16)
PROC: 5A0935A Assistance with Respiratory Ventilation, Less than 24 Consecutive Hours, High Flow/Velocity Cannula (ICD-10-PCS; 2021-05-18)
PROC: 5A0935A Assistance with Respiratory Ventilation, Less than 24 Consecutive Hours, High Flow/Velocity Cannula (ICD-10-PCS; 2021-05-19)
PROC: XW0DXM6 Introduction of Baricitinib into Mouth and Pharynx, External Approach, New Technology Group 6 (ICD-10-PCS; principal; 2021-05-20)
PROC: 5A0935A Assistance with Respiratory Ventilation, Less than 24 Consecutive Hours, High Flow/Velocity Cannula (ICD-10-PCS; 2021-05-20)
PROC: 5A0935A Assistance with Respiratory Ventilation, Less than 24 Consecutive Hours, High Flow/Velocity Cannula (ICD-10-PCS; 2021-05-21)
PROC: 5A0935A Assistance with Respiratory Ventilation, Less than 24 Consecutive Hours, High Flow/Velocity Cannula (ICD-10-PCS; 2021-05-22)
PROC: 5A0935A Assistance with Respiratory Ventilation, Less than 24 Consecutive Hours, High Flow/Velocity Cannula (ICD-10-PCS; 2021-05-23)
PROC: 5A0935A Assistance with Respiratory Ventilation, Less than 24 Consecutive Hours, High Flow/Velocity Cannula (ICD-10-PCS; 2021-05-24)
PROC: 5A0935A Assistance with Respiratory Ventilation, Less than 24 Consecutive Hours, High Flow/Velocity Cannula (ICD-10-PCS; 2021-05-25)
PROC: 5A09357 Assistance with Respiratory Ventilation, Less than 24 Consecutive Hours, Continuous Positive Airway Pressure (ICD-10-PCS; 2021-05-31)
PROC: 5A09357 Assistance with Respiratory Ventilation, Less than 24 Consecutive Hours, Continuous Positive Airway Pressure (ICD-10-PCS; 2021-06-01)
PROC: 5A09357 Assistance with Respiratory Ventilation, Less than 24 Consecutive Hours, Continuous Positive Airway Pressure (ICD-10-PCS; 2021-06-01)
PROC: 5A0935A Assistance with Respiratory Ventilation, Less than 24 Consecutive Hours, High Flow/Velocity Cannula (ICD-10-PCS; 2021-06-02)
PROC: 5A09357 Assistance with Respiratory Ventilation, Less than 24 Consecutive Hours, Continuous Positive Airway Pressure (ICD-10-PCS; 2021-06-02)
PROC: 5A09357 Assistance with Respiratory Ventilation, Less than 24 Consecutive Hours, Continuous Positive Airway Pressure (ICD-10-PCS; 2021-06-02)
PROC: 5A0935A Assistance with Respiratory Ventilation, Less than 24 Consecutive Hours, High Flow/Velocity Cannula (ICD-10-PCS; 2021-06-03)
PROC: 5A09357 Assistance with Respiratory Ventilation, Less than 24 Consecutive Hours, Continuous Positive Airway Pressure (ICD-10-PCS; 2021-06-03)
PROC: 5A09357 Assistance with Respiratory Ventilation, Less than 24 Consecutive Hours, Continuous Positive Airway Pressure (ICD-10-PCS; 2021-06-03)
PROC: 5A09357 Assistance with Respiratory Ventilation, Less than 24 Consecutive Hours, Continuous Positive Airway Pressure (ICD-10-PCS; 2021-06-04)
PROC: 5A0935A Assistance with Respiratory Ventilation, Less than 24 Consecutive Hours, High Flow/Velocity Cannula (ICD-10-PCS; 2021-06-05)
PROC: 5A09357 Assistance with Respiratory Ventilation, Less than 24 Consecutive Hours, Continuous Positive Airway Pressure (ICD-10-PCS; 2021-06-05)
PROC: 5A09357 Assistance with Respiratory Ventilation, Less than 24 Consecutive Hours, Continuous Positive Airway Pressure (ICD-10-PCS; 2021-06-06)
PROC: 5A09357 Assistance with Respiratory Ventilation, Less than 24 Consecutive Hours, Continuous Positive Airway Pressure (ICD-10-PCS; 2021-06-07)
PROC: 5A0935A Assistance with Respiratory Ventilation, Less than 24 Consecutive Hours, High Flow/Velocity Cannula (ICD-10-PCS; 2021-06-08)
PROC: 5A09357 Assistance with Respiratory Ventilation, Less than 24 Consecutive Hours, Continuous Positive Airway Pressure (ICD-10-PCS; 2021-06-08)
PROC: 5A0935A Assistance with Respiratory Ventilation, Less than 24 Consecutive Hours, High Flow/Velocity Cannula (ICD-10-PCS; 2021-06-09)
PROC: 5A09357 Assistance with Respiratory Ventilation, Less than 24 Consecutive Hours, Continuous Positive Airway Pressure (ICD-10-PCS; 2021-06-09)
PROC: 5A0935A Assistance with Respiratory Ventilation, Less than 24 Consecutive Hours, High Flow/Velocity Cannula (ICD-10-PCS; 2021-06-10)
PROC: 5A09357 Assistance with Respiratory Ventilation, Less than 24 Consecutive Hours, Continuous Positive Airway Pressure (ICD-10-PCS; 2021-06-10)
PROC: 5A0935A Assistance with Respiratory Ventilation, Less than 24 Consecutive Hours, High Flow/Velocity Cannula (ICD-10-PCS; 2021-06-11)
PROC: 5A09357 Assistance with Respiratory Ventilation, Less than 24 Consecutive Hours, Continuous Positive Airway Pressure (ICD-10-PCS; 2021-06-11)
PROC: 5A0935A Assistance with Respiratory Ventilation, Less than 24 Consecutive Hours, High Flow/Velocity Cannula (ICD-10-PCS; 2021-06-12)
PROC: 5A0935A Assistance with Respiratory Ventilation, Less than 24 Consecutive Hours, High Flow/Velocity Cannula (ICD-10-PCS; 2021-06-13)
PROC: 5A09357 Assistance with Respiratory Ventilation, Less than 24 Consecutive Hours, Continuous Positive Airway Pressure (ICD-10-PCS; 2021-06-13)
PROC: 5A0935A Assistance with Respiratory Ventilation, Less than 24 Consecutive Hours, High Flow/Velocity Cannula (ICD-10-PCS; 2021-06-14)
PROC: 5A09357 Assistance with Respiratory Ventilation, Less than 24 Consecutive Hours, Continuous Positive Airway Pressure (ICD-10-PCS; 2021-06-14)
PROC: 5A0935A Assistance with Respiratory Ventilation, Less than 24 Consecutive Hours, High Flow/Velocity Cannula (ICD-10-PCS; 2021-06-15)
PROC: 5A09357 Assistance with Respiratory Ventilation, Less than 24 Consecutive Hours, Continuous Positive Airway Pressure (ICD-10-PCS; 2021-06-15)
PROC: 5A0935A Assistance with Respiratory Ventilation, Less than 24 Consecutive Hours, High Flow/Velocity Cannula (ICD-10-PCS; 2021-06-29)
PROC: 5A09357 Assistance with Respiratory Ventilation, Less than 24 Consecutive Hours, Continuous Positive Airway Pressure (ICD-10-PCS; 2021-06-29)
PROC: 5A0935A Assistance with Respiratory Ventilation, Less than 24 Consecutive Hours, High Flow/Velocity Cannula (ICD-10-PCS; 2021-06-30)
PROC: 5A09357 Assistance with Respiratory Ventilation, Less than 24 Consecutive Hours, Continuous Positive Airway Pressure (ICD-10-PCS; 2021-06-30)
PROC: 5A0935A Assistance with Respiratory Ventilation, Less than 24 Consecutive Hours, High Flow/Velocity Cannula (ICD-10-PCS; 2021-07-01)
PROC: 5A09357 Assistance with Respiratory Ventilation, Less than 24 Consecutive Hours, Continuous Positive Airway Pressure (ICD-10-PCS; 2021-07-01)
PROC: 5A0935A Assistance with Respiratory Ventilation, Less than 24 Consecutive Hours, High Flow/Velocity Cannula (ICD-10-PCS; 2021-07-02)
PROC: 5A09357 Assistance with Respiratory Ventilation, Less than 24 Consecutive Hours, Continuous Positive Airway Pressure (ICD-10-PCS; 2021-07-02)
DX: U07.1 COVID-19 (principal); J12.82 Pneumonia due to coronavirus disease 2019; J80 Acute respiratory distress syndrome; J15.9 Unspecified bacterial pneumonia; D68.59 Other primary thrombophilia; D68.8 Other specified coagulation defects; I10 Essential (primary) hypertension; E87.6 Hypokalemia; E11.65 Type 2 diabetes mellitus with hyperglycemia; D64.9 Anemia, unspecified; E66.01 Morbid (severe) obesity due to excess calories; E78.00 Pure hypercholesterolemia, unspecified; E78.5 Hyperlipidemia, unspecified; R04.0 Epistaxis; R62.7 Adult failure to thrive; B96.1 Klebsiella pneumoniae [K. pneumoniae] as the cause of diseases classified elsewhere; B37.9 Candidiasis, unspecified; D69.6 Thrombocytopenia, unspecified; J84.10 Pulmonary fibrosis, unspecified; T38.0X5A Adverse effect of glucocorticoids and synthetic analogues, initial encounter; Z68.33 Body mass index [BMI] 33.0-33.9, adult; Z74.01 Bed confinement status; Z93.1 Gastrostomy status; Z91.19 Patient's noncompliance with other medical treatment and regimen; Y92.89 Other specified places as the place of occurrence of the external cause; Z83.3 Family history of diabetes mellitus; Z82.5 Family history of asthma and other chronic lower respiratory diseases; Z82.49 Family history of ischemic heart disease and other diseases of the circulatory system; Z82.0 Family history of epilepsy and other diseases of the nervous system
CPT/HCPCS: 36415; 36600; 71045; 71275; 76705; 80048; 80053; 80076; 81001; 82435; 82550; 82728; 82803; 82947; 82948; 83036; 83605; 83615; 83735; 84100; 84132; 84145; 84295; 84439; 84443; 84481; 84484; 85018; 85025; 85027; 85378; 85610; 85651; 85730; 86140; 86606; 86612; 86635; 86698; 87040; 87071; 87077; 87186; 87205; 87635; 93005; 93970; 94640; 94660; 97039; C9113; C9803; G0378; J0696; J1100; J1450; J1650; J1815; J1940; J2020; J2543; J2920; J3490; J7050; Q9967

== ENCOUNTER 2024-09-27 00:42 | Inpatient (IN) | payer BC, MEDICARE ==
[2024-09-27] VITALS (10 sets, daily range): BP systolic 131; BP diastolic 70; PULSE 86–111; RESP 18–20; TEMP 98.7–99.8; O2SAT 95–98
[~2024-09-27] VITALS: Ht 162.6 cm; Wt 98.3 kg
[~2024-09-27 00:42] MED LIST changes: +AMOX1TAB16 PO; +EMPA10TA PO; +FAMO20TA8 PO; +FLUT1BLS3 IH; -LIDOCAINE HCL 2% JELLY 5 ML TP ONE; +METF-444 PO; +METO50TA18 PO; -SILVER NITRATE APPLICATOR 1 SWAB TP ONE; +SIMV-43 PO
[2024-09-27] MEDS: acetaMINOPHEN 500 MG TABLET PO ONE (01:15)
[2024-09-27 01:24] LABS: SARS-CoV-2, RNA, NAAT NEGATIVE SARS CoV-2 (NEGATIVE)
[2024-09-27 01:29] LABS: INFLUENZA TYPE A Negative For Type A (NEGATIVE); INFLUENZA TYPE B Negative For Type B (NEGATIVE)
--- NOTE | 2024-09-27 01:51 | ERN ---
ED Note History of Present Illness Stated Complaint: C/O SOB Chief Complaint: Shortness of Breath Time Seen by MD: 01:07 Dictation: The patient is a 60-year-old male with a long history of lung issues after baldemar COVID in 2020. At that time the patient did require prolonged hospitalization for improvement. He sees Dr. Diehl, primary vacuum tester cans, as an outpatient. He normally requires 2-3 L on nasal cannula at home. He states that he has noticed increasing amounts of dyspnea on exertion. About a year ago, he was able to walk about 100 ft and now can only do about 50 ft before having to stop. He states that during his travel to [place] for a wedding he noticed a drop in his O2 saturations. In addition to his nasal cannula he used his portable oxygen machine and placed it in his mouth and was able to get his O2 sats to 96. He states that since his return home he has been having difficulty maintaining his O2 saturation in the 90s. This became progressively worse over the last 4 days and thus came to the emergency department for higher level of care. While in the emergency department patient was noted to have a temperature of a 100.9 and placed on 4 L nasal cannula and began saturating 96%. He was started on Rocephin and azithromycin. Chest x-ray revealed left lung pneumonia and concern for possible pleural effusion. Further workup was performed including a venous Doppler which was negative for DVT and a chest CT which revealed no evidence of pulmonary embolism. Sputum sample was obtained and awaiting culture results. Ultrasound echo was also performed to evaluate cardiac function. This revealed global hypokinesis of the left ventricle with severe inferior and posterior hypokinesis and LVEF of 30-35%. Allergies: Coded Allergies: No Known Drug Allergies (Verified Allergy, Unknown, 05/22/20) Home Meds Active Scripts Amoxicillin/Potassium Clav (Amox Tr-K Clv 875-125 mg Tab) 875 Mg-125 Mg Tablet, 1 TAB PO BID for 7 Days, #14 TAB 0 Refills Prov:RANDOLPH TAPIA SPEECH PATHOLOGIST ASSISTANT 07/12/24 Famotidine (Famotidine) 20 Mg Tablet, 20 MG PO BID, #60 TAB Prov:RANDOLPH TAPIA SPEECH PATHOLOGIST ASSISTANT 07/12/24 Reported Medications Fluticasone/Umeclidin/Vilanter (Trelegy Ellipta 100-62.5-25) 100-62.5 Blst.w.dev, 1 PUFF IH DAILY for 30 Days, #1 EACH 0 Refills 07/08/24 Simvastatin (Simvastatin) 20 Mg Tablet, 1 TAB PO HS for 30 Days, #30 TAB 0 Refills 07/08/24 Metoprolol Tartrate (Metoprolol Tartrate) 50 Mg Tablet, 1 TAB PO BID for 30 Days, #60 TAB 0 Refills 07/08/24 Metformin HCl (Metformin HCl) 500 Mg Tablet, 1 TAB PO BID for 30 Days, #60 TAB 0 Refills 07/08/24 Empagliflozin (Jardiance) 10 Mg Tablet, 1 TAB PO DAILY for 30 Days, #30 TAB 0 Refills 07/08/24 Past Medical History Past Medical History: Diabetes-Type II Surgical History: Unknown Social History: Negative RN Note Reviewed/Agreed w/PFSH: Yes Review of System Dictation Constitutional: Positive for fever,chills, and weight loss Eyes: Negative for injury, pain,redness, and discharge ENT: Negative for injury,pain or swelling Cardiovascular: Negative for chest pain, palpitations, and edema Respiratory: Pause for shortness of breath, mild cough, and wheezing, Abdomen/GI: Negative for abdominal pain, nausea, vomiting, diarrhea, and constipation Back: Negative for injury and pain : Negative for injury, bleeding and discharge MS/Extremity: Negative for injury and deformity Skin: Negative for rash, and discoloration Neuro: Negative for headache, weakness, numbness, tingling, and seizure Psych: Negative for suicide ideation, homicidal ideation, and hallucinations Initial Vital Sign VS Vital Signs Date Time Temp Pulse Resp B/P (MAP) Pulse Ox O2 Delivery O2 Flow Rate FiO2 09/27/24 00:43 100.2 116 20 158/86 92 Nasal Cannula 3.0 09/27/24 01:07 32 Physical Exam Dictation General: awake, alert, NAD obese male Head/Face: Normocephalic, atraumatic Eyes: PERRL, EOMI, vision at baseline ENT: oral cavity clear, TMs clear, no signs of infection Neck: Trachea midline, supple, no nuchal rigidity Cardiovascular: RRR, normal S1/S2, No MRGs, no JVD Respiratory: Decreased breath sounds on the left side with coarse rhonchi Abdomen: Soft, non-tender, non-distended, normal bowel sounds, no guarding or rebound. Skin: Warm, dry, normal turgor, no rash MS/Extremity: Pulses equal, no cyanosis, neurovascular intact, FROM Neuro: COAx4, GCS 15, strength 5/5, CN 2-12 intact, normal cerebellar exam, normal gait, Psych: Normal behavior, mood, and affect normal Extremities-trace edema without any palpable cords, Homans sign is negative Results (Laboratory/Radiology) Laboratory/Radiology Laboratory Tests Test 09/27/24 00:59 09/27/24 01:48 Influenza Type A Antigen Negative For Type A Influenza Type B Antigen Negative For Type B SARS-CoV-2, RNA, NAAT NEGATIVE SARS CoV-2 White Blood Count 11.5 K/uL (4.8-10.8) H Red Blood Count 4.95 MIL/uL (4.50-6.20) Hemoglobin 15.3 g/dL (14.0-18.0) Hematocrit 46.8 % (42-54) Mean Corpuscular Volume 94.5 fL (79-99) Mean Corpuscular Hemoglobin 30.9 pg (27.0-33.0) Mean Corpuscular Hemoglobin Concent 32.7 g/dL (32.0-36.0) Red Cell Distribution Width 12.4 % (11.0-15.5) Platelet Count 242 K/uL (130-400) Mean Platelet Volume 10.9 fL (7.5-10.5) H Immature Granulocyte % (Auto) 0.8 % (0-1) Neutrophils (%) (Auto) 75.8 % (40.0-77.0) Lymphocytes (%) (Auto) 5.8 % (21.0-51.0) L Monocytes (%) (Auto) 14.8 % (3.0-13.0) H Eosinophils (%) (Auto) 2.4 % (0.0-8.0) Basophils (%) (Auto) 0.4 % (0.0-5.0) Neutrophils # (Auto) 8.7 K/uL (1.8-7.7) H Lymphocytes # (Auto) 0.7 K/uL (1.0-4.8) L Monocytes # (Auto) 1.7 K/uL (0.1-1.0) H Eosinophils # (Auto) 0.27 K/uL (0.00-0.70) Basophils # (Auto) 0.05 K/uL (0.00-0.20) Absolute Immature Granulocyte (auto 0.09 K/uL (0-1) Nucleated Red Blood Cells 0.0 % (0.0-0.19) Sodium Level 137 mmol/L (136-145) Potassium Level 3.6 mmol/L (3.5-5.1) Chloride Level 100 mmol/L (101-111) L Carbon Dioxide Level 26 mmol/L (21-32) Blood Urea Nitrogen 14 mg/dL (7-18) Creatinine 1.0 mg/dL (0.5-1.3) Glomerular Filtration Rate Calc 83 mL/min (>90) Random Glucose 141 mg/dL (70-105) H Total Calcium 9.0 mg/dL (8.5-10.1) Labs Reviewed?: Yes X-RAY Comment: Lexiscan results in 2023 There is global hypokinesis of the left ventricle with an estimated LVEF of 31% No transient ischemic dilation of the left ventricle There is a small size mild severity perfusion defect of the inferolateral segment however partial improvement in stress imaging. ED Course ED Course Orders Procedure Category Date Status Time Chest 1vw RAD 09/27/24 Resulted 00:52 Influenza Type A & B, LAB 09/27/24 Complete Rapid 00:52 Covid Rna Naat LAB 09/27/24 Complete 00:52 Acetaminophen 500mg PHA 09/27/24 Complete Tab (Tylenol 500mg T 01:30 Cbc With Differential LAB 09/27/24 In Process 01:34 Basic Metabolic Panel LAB 09/27/24 Complete 01:34 Methylprednisolone PHA 09/27/24 Complete Succ 125mg (Solu-Medr 02:00 Ipratropium/Albuterol PHA 09/27/24 Complete Neb (Duoneb) 02:00 Levofloxacin 250 PHA 09/27/24 Complete Mg/D5w 50ml (Levaquin 02:00 Levofloxacin 500mg PHA 09/27/24 In Process Tab (Levaquin 500mg T 02:00 B-Type Natriuretic LAB 09/27/24 In Process Peptide 02:48 Edm Admit Bridge Order ADM 09/27/24 Transmitted 03:52 Current Medications Medications (Trade) Dose Ordered Sig/Jeanette Route PRN Reason Start Time Stop Time Status Last Admin Dose Admin Acetaminophen (TYLenol 500MG TAB) 1,000 mg ONCE ONCE PO 09/27/24 01:30 09/27/24 01:31 DC 09/27/24 01:15 Albuterol (DUOneb) 1 UDVIAL ONCE ONCE IH 09/27/24 02:00 09/27/24 02:01 DC 09/27/24 02:19 Levofloxacin (LEvaquIN 500MG TAB) 250 mg Q24H PO 09/27/24 02:00 10/07/24 01:59 09/27/24 02:03 Levofloxacin/ Dextrose 250 ml @ 100 mls/hr Q24H IV 09/27/24 02:00 09/27/24 01:56 DC Methylprednisolone Sodium Succinate (Solu-medROL 125MG) 80 mg ONCE ONCE IVP 09/27/24 02:00 09/27/24 02:01 DC 09/27/24 02:02 Vital Signs Date Time Temp Pulse Resp B/P (MAP) Pulse Ox O2 Delivery O2 Flow Rate FiO2 09/27/24 02:19 91 20 09/27/24 01:15 100.2 09/27/24 01:07 109 19 149/79 92 Nasal Cannula* 3 32 09/27/24 00:43 100.2 116 20 158/86 92 Nasal Cannula 3.0 We will perform diagnostic labs, advanced imaging and administer medications according to the patient's complaint. Once the results are available, will review and personally interpreted the labs to rule out any acute life- threatening emergency the trach require immediate intervention and treatment. I will then re-evaluate the patient after treatment and diagnostic exams have return to determine whether the patient requires any further testing, can safely be discharged home or need further admission to hospital for additional treatment and evaluation. Labs reviewed chest x-ray shows small fibrotic left lung with a widening suggestive of probably pull pleural thickening or pleural effusion. CBC showed a white count of 11.5 BNP 7 is within normal limits. I recommended admission to the hospital in view of worsening hypoxia and early sepsis with tachycardia at presentation and also my concern for a cardiac component and he and spouse are agreeable. 3:50 a.m. patient was accepted by nirmala Arriaga, mid-level provider for hospitalist group for admission and further management Medical Decision Making MDM MDM: Differential diagnosis: Pneumonia with worsening hypoxia, pulmonary edema Rationale: Tests considered and ordered secondary to shared decision making include: labs, ECG and radiology Previous outside records reviewed: Old ER visits. Risk of complication and/or morbidity or mortality of patient management: None Medications-Per medication reconciliation Need for hospitalization: Patient does meet criteria for hospitalization. Need for emergency major/minor surgery: No There are no social concerns with this patient. Prescription drug management Prescriptions will include symptomatic care Patient's prior external medical records from other ER visits were reviewed by me as indicated. Prior testing and results from previous visits were reviewed. Prior tests were taken into account with medical decision making and resource utilization, independent historian/historians were used to obtain complete medical history. I independently interpreted the test that were performed, results were reviewed by me and considered findings on radiology if ordered. Medical management and examination interpretation discussions were had by me with other qualified healthcare professionals as indicated for the patient's care. Problem List Problem List: (1) Diabetes mellitus (2) Hypertension (3) Morbid obesity (4) Interstitial lung disease with progressive fibrotic phenotype in diseases classified elsewhere (5) History of severe acute respiratory syndrome coronavirus 2 (SARS-CoV-2) disease (6) Cardiomyopathy (7) Acute and chronic respiratory failure with hypoxia DX & DISP Disposition: Inpatient Decision to Admit Time: 03:54 Departure Impression: Primary Impression: Acute and chronic respiratory failure with hypoxia Additional Impressions: Interstitial lung disease with progressive fibrotic phenotype in diseases classified elsewhere, History of severe acute respiratory syndrome coronavirus 2 (SARS-CoV-2) disease, Cardiomyopathy, Diabetes mellitus, Hypertension, Morbid obesity Condition: Stable Additional Instructions: Patient was informed of all the diagnostic labs and procedures conducted in the emergency room today and demonstrated understanding of the results. I personally reviewed and interpreted all the diagnostic exams performed in the ER today. The patient will be admitted to the hospital for further treatment and evaluation. Disposition-admit to facility Condition-stable/guarded Course-uncertain at this time Pain status-decreased Assessment-exam unchanged Admission Certification- I certify that the patients status is appropriate and is based on my best clinical judgment and the patient's condition as documented in the medical records Referrals: EZIO RICHARDSON MD (PCP) ABHI SCHNEIDER MD Sep 27, 2024 01:51
[2024-09-27 01:59] LABS: BASOPHILS # (AUTO) 0.05 K/uL (0.00-0.20); BASOPHILS % (AUTO) 0.4 % (0.0-5.0); EOSINOPHILS # (AUTO) 0.27 K/uL (0.00-0.70); EOSINOPHILS % (AUTO) 2.4 % (0.0-8.0); HEMATOCRIT 46.8 % (42-54); IMMATURE GRANULOCYTE ABSOLUTE 0.09 K/uL (0-1); LYMPHOCYTES # (AUTO) 0.7 K/uL (1.0-4.8); LYMPHOCYTES % (AUTO) 5.8 % (21.0-51.0); MEAN CORPUSCULAR HEMOGLOBIN 30.9 pg (27.0-33.0); MEAN CORPUSCULAR HGB CONC 32.7 g/dL (32.0-36.0); MEAN CORPUSCULAR VOLUME 94.5 fL (79-99); MONOCYTES # (AUTO) 1.7 K/uL (0.1-1.0); MONOCYTES % (AUTO) 14.8 % (3.0-13.0); NEUTROPHILS # (AUTO) 8.7 K/uL (1.8-7.7); NEUTROPHILS % (AUTO) 75.8 % (40.0-77.0); PLATELET COUNT (AUTO) 242 K/uL (130-400); RED BLOOD CELL COUNT(AUTO) 4.95 MIL/uL (4.50-6.20); RED CELL DISTRIBUTION WIDTH 12.4 % (11.0-15.5); WHITE BLOOD COUNT (AUTO) 11.5 K/uL (4.8-10.8)
[2024-09-27] MEDS ORDERED: D5W IV SCH (02:00)
[2024-09-27] MEDS ORDERED: LEVOFLOXACIN IV SCH (02:00)
[2024-09-27] MEDS: Solu-medROL 125MG VIAL IVP ONE (02:02)
[2024-09-27] MEDS: levoFLOXacin 500 MG TABLET PO SCH (02:03)
--- NOTE | 2024-09-27 02:03 | HMCIMG ---
CHEST 1VW HISTORY: Shortness of breath COMPARISON: 07/12/2024 FINDINGS: A frontal projection of the chest was obtained. Bilateral pulmonary infiltrates are seen with left more than right with left pleural effusion unchanged. The heart is borderline enlarged. All the lines and tubes are again seen in place. No evidence of aortic calcification is seen. IMPRESSION: 1. No interval change is seen.
[2024-09-27 02:16] LABS: POTASSIUM 3.6 mmol/L (3.5-5.1)
[2024-09-27] MEDS: IpraTROPium/alBUTERol SULFATE 3 ML SOLUTION IH ONE (02:19)
--- NOTE | 2024-09-27 04:19 | HP ---
[facility] Date of Service: Sep 27, 2024 Time of Service: 04:09 PCP: Reynaldo Xie HISTORY OF PRESENT ILLNESS: This is a 64-year-old male with past medical history of respiratory failure, CHF, hypertension, diabetes type 2, hyperlipidemia and COVID pneumonia who was brought to the ED for complaints of worsening shortness of breaths which started today.Patient reports ever since he had Covid pneumonia in 2020 which required him prolonged hospital confinement for recovery he kept having breathing problem and reason why he is on home Oxygen at 2- 3L/NC.Patient reports last June 2012 he attended a wedding at [place] in [place] and he started having low oxygen saturation and he was admitted for pneumonia.Today while he was about to go to bed he checked his Saturation and it's been maintaining in the high 80's so he kept increasing his Oxygen to 4 and up to 5L/NC but he is unable to keep it up to 90's so he decided to come to the ED for evaluation,he is concerned he might have pneumonia again he said.Patient reports he noticed he is unable to walk in short distances without being short of breath.Patient had an echocardiogram done on 07/09/2024 which revealed EF is 30-35% there is global hypokinesis of the left ventricle. Severe inferior and posterior hypokinesis mild lateral inferolateral hypokinesis stage I diastolic dysfunction. Patient also has a Lexiscan stress test done on July 11, 2024 which revealed there is global hypokinesis of the left ventricle with an estimated left ventricle EF of 31%. No transient ischemic dilation of the left ventricle. There is a small size mild severity perfusion defect of the inferolateral segment however partial improvement in stress imaging. Seen and examined patient in the ER awake alert and coherent, appears mildly short of breath. Patient denies chest pain, palpitation, nausea, vomiting, edema and abdominal pain. Latest vital signs temperature 100.2, heart rate 91 blood pressure 149/79 saturation 92% on 3 L nasal cannula. Labs: WBC 11.5, hemoglobin 15.3, hematocrit 46.8 platelet count 242. Chloride 100 glucose 141 BNP 76. Influenza type a and B negative SARs COVID negative. Chest x-ray result revealed a frontal projection of the chest was obtained bilateral pulmonary infiltrates are seen with left more than right with left pleural effusion unchanged the heart is borderline enlarged of the lines and tubes are again seen in place no evidence of aortic calcification is seen. While in the ER patient received Tylenol 1000 mg p.o. levofloxacin 250 mg p.o. we will admit patient for further medical management. REVIEW OF SYSTEMS CONSTITUTIONAL: Denies fevers, chills, or night sweats. No unintentional weight loss reported. NEUROLOGICAL: Denies headache, amaurosis fugax, motor weakness, sensory deficit, vertigo/spinning sensation, gait abnormalities, or tremors. ENT: No hearing loss, otalgia, otorrhea, rhinitis, rhinorrhea, hoarseness, or sore throat. CARDIOVASCULAR: Positive dyspnea on exertion and orthopnea uses three pillows Denies any exertional angina, paroxysmal nocturnal dyspnea, palpitations, life- threatening arrhythmias, claudication. PULMONARY: Positive shortness of breath with occasional productive cough Denies hemoptysis, pleuritic chest pain. SLEEP: Denies morning headaches, daytime somnolence or napping. Denies difficulty falling asleep, staying asleep, waking from sleep. Denies knowledge of snoring. GASTROINTESTINAL: Denies any type of dysphagia to either liquids or solids. Denies nausea, vomiting, pyrosis, early satiety, abdominal pain, diarrhea, constipation, or changes in stool consistency or caliber. Denies coffee-ground emesis, hematemesis, hematochezia, or melanotic stools. GENITOURINARY: Denies frequency, urgency, nocturia, hematuria or incontinence (Storage/Irritative symptoms.) Low urinary stream, straining to void, urinary intermittency or hesitancy, splitting of the voiding stream, terminal dribbling. ENDOCRINOLOGIC: Denies polyuria, polydipsia, polyphagia or heat/cold intolerances. HEMATOLOGIC: Denies thrombophilia/previous clots, or coagulopathy/bleeding disorders. ONCOLOGIC: Denies personal history of malignancy. DERMATOLOGIC: Denies rashes or pruritus. PSYCHIATRIC: Denies any suicidal or homicidal ideation. Denies hallucinations. PAST MEDICAL HISTORY: [Respiratory failure on home O2, CHF, Hypertension, diabetes type 2, hyperlipidemia, COVID pneumonia ] PAST SURGICAL HISTORY: [Denies any surgical history ] PAST SOCIAL HISTORY: [ Denies smoking alcohol and recreational drug use ] FAMILY HISTORY: [ Noncontributory ] Coded Allergies: No Known Drug Allergies (Verified Allergy, Unknown, 05/22/20) PHYSICAL EXAM GENERAL APPEARANCE: The patient is awake, alert, and oriented, in no acute cardiopulmonary distress. NEUROLOGICAL: Cranial nerves II-XII grossly intact. Motor is 5/5 in bilateral upper and lower extremities proximal to distal. No sensory deficits. HEENT: Face is symmetric. Pupils are equal and reactive. Extraocular movements are intact. NECK: Supple. No JVD. No thyromegaly. No submental, submandibular, pre- /postauricular, occipital or supraclavicular lymphadenopathy. CHEST: Normal chest expansion. No Telemetry. LUNGS: Absence of any rales, rhonchi or any wheezing. CARDIOVASCULAR: Regular. S1 and S2 normal. No appreciable rubs, murmurs or gallops. ABDOMEN: Soft, nontender, and nondistended. There is no rebound, voluntary g uarding, or rigidity. : Deferred. No [place]. EXTREMITIES: Non-edematous and not cyanotic. No clubbing. Good capillary refill. SKIN: No skin breakdown. Vital Sign (Last 24 Hours) 09/27/24 09/27/24 09/27/24 01:07 01:15 02:19 Temp 100.2 Pulse 91 Resp 20 B/P (MAP) 149/79 Pulse Ox 92 O2 Delivery Nasal Cannula* O2 Flow Rate 3 FiO2 32 LABS: Laboratory: Test 09/27/24 01:48 09/27/24 00:59 Range/Units White Blood Count 11.5 H 4.8-10.8 K/uL Red Blood Count 4.95 4.50-6.20 MIL/uL Hemoglobin 15.3 14.0-18.0 g/dL Hematocrit 46.8 42-54 % Mean Corpuscular Volume 94.5 79-99 fL Mean Corpuscular Hemoglobin 30.9 27.0-33.0 pg Mean Corpuscular Hemoglobin Concent 32.7 32.0-36.0 g/dL Red Cell Distribution Width 12.4 11.0-15.5 % Platelet Count 242 130-400 K/uL Mean Platelet Volume 10.9 H 7.5-10.5 fL Immature Granulocyte % (Auto) 0.8 0-1 % Neutrophils (%) (Auto) 75.8 40.0-77.0 % Lymphocytes (%) (Auto) 5.8 L 21.0-51.0 % Monocytes (%) (Auto) 14.8 H 3.0-13.0 % Eosinophils (%) (Auto) 2.4 0.0-8.0 % Basophils (%) (Auto) 0.4 0.0-5.0 % Neutrophils # (Auto) 8.7 H 1.8-7.7 K/uL Lymphocytes # (Auto) 0.7 L 1.0-4.8 K/uL Monocytes # (Auto) 1.7 H 0.1-1.0 K/uL Eosinophils # (Auto) 0.27 0.00-0.70 K/uL Basophils # (Auto) 0.05 0.00-0.20 K/uL Absolute Immature Granulocyte (auto 0.09 0-1 K/uL Nucleated Red Blood Cells 0.0 0.0-0.19 % Sodium Level 137 136-145 mmol/L Potassium Level 3.6 3.5-5.1 mmol/L Chloride Level 100 L 101-111 mmol/L Carbon Dioxide Level 26 21-32 mmol/L Blood Urea Nitrogen 14 7-18 mg/dL Creatinine 1.0 0.5-1.3 mg/dL Glomerular Filtration Rate Calc 83 >90 mL/min Random Glucose 141 H 70-105 mg/dL Total Calcium 9.0 8.5-10.1 mg/dL Influenza Type A Antigen Negative For Type A NEGATIVE Influenza Type B Antigen Negative For Type B NEGATIVE SARS-CoV-2, RNA, NAAT NEGATIVE SARS CoV-2 NEGATIVE Current Medications Medications (Trade) Dose Ordered Sig/Jeanette Route PRN Reason Start Time Stop Time Status Last Admin Dose Admin Levofloxacin (LEvaquIN 500MG TAB) 250 mg Q24H PO 09/27/24 02:00 10/07/24 01:59 09/27/24 02:03 250 MG Levofloxacin/ Dextrose 250 ml @ 100 mls/hr Q24H IV 09/27/24 02:00 09/27/24 01:56 DC DIAGNOSTICS / RADIOLOGY: [ ] ASSESSMENT: Acute on chronic respiratory failure POA Suspected left lung pneumonia with left pleural effusion POA CHF not on exacerbation POA Sirs with organ dysfunction POA Hypertension POA Hyperlipidemia POA Diabetes POA Morbid Obesity POA PLAN: We will admit patient in medical telemetry We will start on heart healthy diet We will start patient on Rocephin and azithromycin for broad-spectrum coverage We will start patient on dexamethasone 6 mg IV daily We will start patient on Lovenox 30 mg subQ for DVT prophylaxis We will start on Famotidine 20 mg IV bid for GI prophylaxis We will replace electrolytes as needed per protocol We will start on insulin sliding scale AC & HS with hypoglycemia protocol We will add prn medication for fever,pain,cough and nausea We will reconcile home meds once medlist available May continue oxygen supplementation Continue DuoNeb treatment Daily weight and strict I&O We will request labs in am We will obtain urinalysis We will request respiratory culture We will seek Cardiology consultation We will seek pulmonology consultation Further orders to follow depending on above results Case discussed with attending physician and came up with above treatment and plan of care. ADVANCED CARE PLANNING 1. Which of the following were discussed? Hospice Care - No Therapeutic options - Yes Advance Directives - No Other discussions - 2. Discussed with who? Patient 3. Voluntary nature of this service was explained to the patient? Yes 4. Amount of time spent - _22 5. Reviewed by Physician? (if this service was performed by NPP) Yes Patient seen and examined by me. Agree with note by AUTOMATION DESIGN ENGINEER SEE ADDITIONAL ORDERS PER CHART DISCUSSED WITH NURSING STAFF VICENTE BREENP Sep 27, 2024 04:19
[2024-09-27] MEDS ORDERED: CARV6.25 PO (04:54)
[2024-09-27] MEDS ORDERED: SIMV-43 PO (04:54)
[2024-09-27] MEDS ORDERED: FLUT1BLS3 IH (04:54)
[2024-09-27] MEDS ORDERED: EMPA10TA PO (04:54)
[2024-09-27] MEDS ORDERED: METF-444 PO ×2 (04:54)
[2024-09-27 04:56] LABS: WBC MORPHOLOGY CONSISTENT W/DIFF
[2024-09-27] MEDS ORDERED: acetaMINOPHEN 325 MG TAB PO PRN ×2 (05:00)
[2024-09-27] MEDS ORDERED: cefTRIAXone 1G VIAL 1 GM in 0.9%NACL 50ML 50 ML IV SCH (05:00)
[2024-09-27] MEDS ORDERED: ondanSETRON 4MG INJ IV PRN (05:00)
[2024-09-27] MEDS: dexaMETHasone SOD PHOSPHATE 4 MG/ML 1ML VIAL IV SCH (05:00)
[2024-09-27] MEDS: cefTRIAXone 1G VIAL IVPB SCH (05:24)
--- NOTE | 2024-09-27 06:08 | EKG ---
[facility] Test Date: 2024-09-27 Test Time: 05:59:27 Pat Name: JACINDA YOUSIF Department: [facility] Room: 414 Gender: M Nephrologist: [id number] : 1960 Requested By: VICENTE BREEN Order Number: [id number] Reading MD: Cris Cisneros Measurements Intervals [place] Rate: 93 P: 19 DC: 187 QRS: 51 QRSD: 95 T: -41 QT: 356 QTc: 442 Interpretive Statements Sinus rhythm Compared to ECG 07/08/2024 11:41:09 Sinus tachycardia no longer present Ventricular premature complex(es) no longer present T-wave abnormality no longer present ST (T wave) deviation no longer present Electronically Signed On 09-28-2024 17:08:24 HEALTHCARE MARKET CONSULTANT by Cris Cisneros Please click the below link to view image of tracing.
[2024-09-27 06:11] LABS: BASOPHILS # (AUTO) 0.03 K/uL (0.00-0.20); BASOPHILS % (AUTO) 0.3 % (0.0-5.0); EOSINOPHILS # (AUTO) 0.05 K/uL (0.00-0.70); EOSINOPHILS % (AUTO) 0.6 % (0.0-8.0); HEMATOCRIT 47.8 % (42-54); IMMATURE GRANULOCYTE ABSOLUTE 0.12 K/uL (0-1); LYMPHOCYTES # (AUTO) 0.5 K/uL (1.0-4.8); LYMPHOCYTES % (AUTO) 5.3 % (21.0-51.0); MEAN CORPUSCULAR HEMOGLOBIN 30.7 pg (27.0-33.0); MEAN CORPUSCULAR HGB CONC 32.2 g/dL (32.0-36.0); MEAN CORPUSCULAR VOLUME 95.4 fL (79-99); MONOCYTES # (AUTO) 0.3 K/uL (0.1-1.0); MONOCYTES % (AUTO) 3.7 % (3.0-13.0); NEUTROPHILS # (AUTO) 7.7 K/uL (1.8-7.7); NEUTROPHILS % (AUTO) 88.7 % (40.0-77.0); PLATELET COUNT (AUTO) 232 K/uL (130-400); RED BLOOD CELL COUNT(AUTO) 5.01 MIL/uL (4.50-6.20); RED CELL DISTRIBUTION WIDTH 12.4 % (11.0-15.5); WHITE BLOOD COUNT (AUTO) 8.7 K/uL (4.8-10.8)
[2024-09-27 06:35] LABS: ALBUMIN 3.6 g/dL (3.5-5.0); BILIRUBIN,TOTAL 0.7 mg/dL (0.2-1.0); CREATININE 0.9 mg/dL (0.5-1.3); MAGNESIUM 1.9 mg/dL (1.80-2.40); POTASSIUM 4.1 mmol/L (3.5-5.1); TOTAL PROTEIN, SERUM 8.2 g/dL (6.0-8.3)
[2024-09-27] MEDS: IpraTROPium/alBUTERol SULFATE 3 ML SOLUTION IH SCH (06:35)
[2024-09-27] MEDS: SODIUM CHLORIDE 3% FOR INHALATION 4 ML/AMP VIAL.NEB IH ONE ×2 (06:35→19:58)
[2024-09-27 06:43] LABS: APPEARANCE,URINE CLEAR (CLEAR); BILIRUBIN,URINE NEGATIVE (NEGATIVE); COLOR,URINE LIGHT-YELLOW (YELLOW); GLUCOSE, URINE (UA) >=1000 mg/dL (NEGATIVE); KETONES,URINE 10 mg/dL (NEGATIVE); LEUKOCYTE ESTERASE ,URINE NEGATIVE Leu/uL (NEGATIVE); NITRATE,URINE NEGATIVE (NEGATIVE); OCCULT BLOOD,URINE NEGATIVE (NEGATIVE); PROTEIN,URINE 30 mg/dL (NEGATIVE); UROBILINOGEN,URINE 0.2 mg/dL (0.2-1.0)
[2024-09-27 06:52] LABS: ADD UA MICROSCOPIC YES
[2024-09-27 07:01] LABS: BACTERIA,URINE RARE /HPF (None Seen); MUCUS,URINE RARE LPF (None Seen); SQUAMOUS EPITHELIAL CELL,UR FEW /HPF (0-2)
[2024-09-27 07:13] LABS: B-TYPE NATRIURETIC PEPTIDE 91 pg/mL (0-100)
[2024-09-27] MEDS: FAMOTIDINE 20MG VIAL IV SCH (08:37)
[2024-09-27] MEDS: ENOXAPARIN SODIUM 30 MG/0.3 ML SQ SCH (08:37)
[2024-09-27] MEDS: AZITHROMYCIN 500MG+NS 250ML 250 ML IV SCH (08:37)
--- NOTE | 2024-09-27 13:21 | CONS ---
[facility] CONSULTATION NOTE Date Patient Seen: Sep 27, 2024 Time of Visit: 13:13 Supervising Physician: Nato Diehl Reason for Consultation: Left pleural effusion Primary Care Physician: Rojas Jacobs Outpatient Specialists: [ ] Inpatient Consults: LADY PROBLEM LIST: Acute on chronic hypoxemic respiratory failure POA Left pleural effusion POA CHF not on exacerbation POA Sirs with organ dysfunction POA Essential Hypertension POA Hyperlipidemia POA Type 2 Diabetes POA Morbid Obesity POA Plan Summary: Supplemental oxygen as needed Wean off as tolerated Lasix 40 mg IV every 12 hours x4 doses 1.5 L fluid restriction Obtain CT of the chest to evaluate pleural effusion IR for thoracentesis HPI: This is a 64-year-old male with past medical history of respiratory failure, CHF, hypertension, diabetes type 2, hyperlipidemia and COVID pneumonia who was brought to the ED for complaints of worsening shortness of breaths which started today.Patient reports ever since he had Covid pneumonia in 2020 which required him prolonged hospital confinement for recovery he kept having breathing problem and reason why he is on home Oxygen at 2- 3L/NC.Patient reports last June 2012 he attended a wedding at [place] in [place] and he started having low oxygen saturation and he was admitted for pneumonia.Today while he was about to go to bed he checked his Saturation and it's been maintaining in the high 80's so he kept increasing his Oxygen to 4 and up to 5L/NC but he is unable to keep it up to 90's so he decided to come to the ED for evaluation,he is concerned he might have pneumonia again he said.Patient reports he noticed he is unable to walk in short distances without being short of breath.Patient had an echocardiogram done on 07/09/2024 which revealed EF is 30-35% there is global hypokinesis of the left ventricle. Severe inferior and posterior hypokinesis mild lateral inferolateral hypokinesis stage I diastolic dysfunction. Patient also has a Lexiscan stress test done on July 11, 2024 which revealed there is global hypokinesis of the left ventricle with an estimated left ventricle EF of 31%. No transient ischemic dilation of the left ventricle. There is a small size mild severity perfusion defect of the inferolateral segment however partial improvement in stress imaging. Patient is seen and evaluated MD. Patient is sitting up in bed continues to be hypoxemic on3 L via nasal cannula which is her home baseline. Patient is awake alert and oriented x3. patient does report his respiratory status has improved from yesterday. Patient was started on broad-spectrum antibiotics for suspected community-acquired pneumonia. We will request a CT scan of the chest to further evaluate pleural effusion. Recommend to continue IV antibiotics and give trial of Lasix 40 mg IV every 12 hours x4 doses. We will continue to follow up with you. Patient has been advised to follow up outpatient pulmonary clinic 2 weeks post discharge. PAST MEDICAL HX: see above PAST SURGICAL HX: noncontributory SOCIAL HISTORY: No tobacco, ETOH, or illicit drug use Coded Allergies: No Known Drug Allergies (Verified Allergy, Unknown, 05/22/20) REVIEW OF SYSTEMS: 12 point ROS reviewed with patient. Pertinent positives mentioned above. Othe rwise negative. PHYSICAL EXAM: GENERAL: alert, weak, awake oriented x 3 HEENT: EOMI, Sclera non icteric, moist mucosa NECK: Supple, no JVD, trachea midline LUNGS: Clear breath sounds bilaterally. No wheezes HEART: Regular rate and rhythm. Normal S1 and S2, without murmurs ABD: Abdomen soft, nontender. Bowel sounds present EXT: No clubbing cyanosis or edema NEURO: Alert and oriented to person, follows commands Vital Signs (last 8hr) Date Time Temp Pulse Resp B/P (MAP) Pulse Ox O2 Delivery O2 Flow Rate FiO2 09/27/24 10:20 111 20 09/27/24 10:04 91 18 136/79 94 Nasal Cannula* 3 32 09/27/24 07:19 97.3 93 18 110/83 96 Nasal Cannula* 3 32 09/27/24 06:39 98 18 N/Cannula Low lpm 3.0 32 09/27/24 06:35 87 20 09/27/24 06:26 98.6 90 18 126/69 97 Nasal Cannula* 3 32 LABS: Hematology Labs: Test 09/27/24 05:49 09/27/24 01:48 Range/Units White Blood Count 8.7 4.8-10.8 K/uL Red Blood Count 5.01 4.50-6.20 MIL/uL Hemoglobin 15.4 14.0-18.0 g/dL Hematocrit 47.8 42-54 % Mean Corpuscular Volume 95.4 79-99 fL Mean Corpuscular Hemoglobin 30.7 27.0-33.0 pg Mean Corpuscular Hemoglobin Concent 32.2 32.0-36.0 g/dL Red Cell Distribution Width 12.4 11.0-15.5 % Platelet Count 232 130-400 K/uL Mean Platelet Volume 10.8 H 7.5-10.5 fL Immature Granulocyte % (Auto) 1.4 H 0-1 % Neutrophils (%) (Auto) 88.7 H 40.0-77.0 % Lymphocytes (%) (Auto) 5.3 L 21.0-51.0 % Monocytes (%) (Auto) 3.7 3.0-13.0 % Eosinophils (%) (Auto) 0.6 0.0-8.0 % Basophils (%) (Auto) 0.3 0.0-5.0 % Neutrophils # (Auto) 7.7 1.8-7.7 K/uL Lymphocytes # (Auto) 0.5 L 1.0-4.8 K/uL Monocytes # (Auto) 0.3 0.1-1.0 K/uL Eosinophils # (Auto) 0.05 0.00-0.70 K/uL Basophils # (Auto) 0.03 0.00-0.20 K/uL Absolute Immature Granulocyte (auto 0.12 0-1 K/uL Nucleated Red Blood Cells 0.0 0.0-0.19 % White Cell Morphology Comment CONSISTENT W/DIFF Chemistry Labs: Test 09/27/24 05:49 Range/Units Sodium Level 140 136-145 mmol/L Potassium Level 4.1 3.5-5.1 mmol/L Chloride Level 103 101-111 mmol/L Carbon Dioxide Level 25 21-32 mmol/L Blood Urea Nitrogen 16 7-18 mg/dL Creatinine 0.9 0.5-1.3 mg/dL Glomerular Filtration Rate Calc 94 >90 mL/min Random Glucose 147 H 70-105 mg/dL Total Calcium 9.3 8.5-10.1 mg/dL Magnesium Level 1.90 1.80-2.40 mg/dL Total Bilirubin 0.7 0.2-1.0 mg/dL Aspartate Amino Transf (AST/SGOT) 21 10-37 U/L Alanine Aminotransferase (ALT/SGPT) 22 12-78 U/L Alkaline Phosphatase 79 50-136 U/L B-Type Natriuretic Peptide 91 0-100 pg/mL Total Protein 8.2 6.0-8.3 g/dL Albumin 3.6 3.5-5.0 g/dL Coagulation Labs: Test 09/27/24 05:49 Range/Units D-Dimer Quantitative (PE/DVT) 371 0-500 ng/mL DIAGNOSTICS / RADIOLOGY RESULTS: PATIENT: JACINDA YOUSIF MR#: [id number] : 1960 SEX: M AGE: 64 LOCATION: [facility] ORDER STATUS: REG ER REPORT#: [id number] SERVICE REASON: SOB ORDERING PHYSICIAN: ABHI SCHNEIDER MD PROCEDURE: CXR1VW - CHEST 1VW CHEST 1VW HISTORY: Shortness of breath COMPARISON: 07/12/2024 FINDINGS: A frontal projection of the chest was obtained. Bilateral pulmonary infiltrates are seen with left more than right with left pleural effusion unchanged. The heart is borderline enlarged. All the lines and tubes are again seen in place. No evidence of aortic calcification is seen. IMPRESSION: 1. No interval change is seen. DICTATED BY: CHRIS LIZARRAGA MD DATE: 09/27/24199 ELECTRONICALLY SIGNED BY: CHRIS LIZARRAGA MD DATE: 09/27/24202 PLAN NEURO: Minimize central acting medications as possible. Maintain fall precautions, adequate lighting during the day PULMONARY: Supplemental 02 as needed. Maintain aspiration precautions at all times CARDIOVASCULAR: Follow hemodynamics. Vital signs per facility protocol GI & NUTRITION: Continue with nutritional support. Continue stool softeners and laxatives as needed. KIDNEYS & ELECTROLYTES: Strict monitoring of intake, output and overall fluid balance. Avoid nephrotoxic medications to the extent possible. Medications to be dosed according to renal function. Monitor electrolytes and replace as needed ENDOCRINE: Maintain blood glucose between 100-180 at all times. Hypoglycemia protocol in place INFECTIOUS DISEASE: Trend temperature, WBC and procalcitonin level Follow cultures, deescalate antibiotics as soon as possible. Panculture if new onset fever ONCOLOGY/HEMATOLOGY/COAGULATION: Monitor for s/s of bleeding Monitor hemoglobin, coagulation studies as needed SKIN: Pressure ulcer prevention per facility protocol Specialty mattress ORTHO/REHAB: Continue PT/OT Prophylaxis: Continue GI and DVT prophylaxis Code Status: Full Resuscitation Disposition: As per attending. Other: Total patient care time exceeds 35 minutes excluding all procedures. ATTESTATION BY PHYSICIAN The patient has been seen and evaluated, the case has been discussed with the ANALYTICAL DATA SCIENTIST, I agree with the clinical findings and plan of care. Aldo Diehl MD, ECTOR N NP Sep 27, 2024 13:21
[2024-09-27] MEDS: furoSEMIDE 40MG VIAL IVP SCH (13:27)
[2024-09-27] MEDS ORDERED: DEXTROSE 50%-WATER 50 ML DISP.SYRIN IV PRN (13:30)
[2024-09-27] MEDS ORDERED: GLUCAGON 1MG KIT 1 MG ML IM PRN (13:30)
[2024-09-27 13:40] LABS: HEMOGLOBIN A1C 5.6 % (4.0-6.0)
--- NOTE | 2024-09-27 14:46 | HMCIMG ---
CT CHEST W/O CONTRAST HISTORY: Trauma COMPARISON: 07/08/2024 TECHNIQUE: Multiple sequential axial images of the chest were obtained from the thoracic inlet through upper abdomen. Patient was not given contrast through intravenous route. FINDINGS: There are bilateral interstitial fibrosis with bronchiectasis. Coronary arterial calcifications are seen. There is no evidence of pulmonary nodule or parenchymal disease. No pleural effusion or pericardial effusion is seen. There is no evidence of pneumothorax. There are normal size mediastinal and hilar lymph nodes. The heart is not enlarged. Degenerative changes of the thoracolumbar spine are present. There is no evidence of adrenal nodule. IMPRESSION: 1. No evidence of pulmonary nodule or effusion is seen. Interstitial fibrosis with bronchiectasis. CT was performed with one or more following dose reduction techniques: automated exposure control, adjustment of the mA and kv according to patient's size, or use of a iterative reconstruction technique.
[2024-09-27] MEDS: INSULIN humuLIN R 100 UNIT/ML 3ML SQ SCH (16:44)
--- NOTE | 2024-09-27 18:59 | CONS ---
[facility] CARDIOLOGY CONSULTATION REPORT Cardiology consultation dictated by Jerry Stephens MD Primary level vial marker: Ivanna Dixon MD Date Patient Seen: Sep 27, 2024 Requesting Physician: SANJUANA Soares Reason for Consultation: CHF History of Present Illness: This is a 64-year-old male medical history of hypertension, hyperlipidemia, diabetes mellitus type 2, Lexiscan stress test on 07/11/2024 demonstrated global hypokinesis, LVEF of 31%, no transient ischemic dilatation of the left ventricle, small size mild severity perfusion defect of the inferolateral segment however partial improvement in stress imaging, 2D echo on 07/09/2024 with an EF of 30-35%, stage I diastolic dysfunction, global hypokinesis of the left ventricle, severe inferior and posterior hypokinesis, with mild lateral inferolateral hypokinesis, on chronic home O2 at 3L via NC since COVID-19 infection in 2020 and recent hospitalization 06/2024 for pneumonia who presented to the ED with complaints of oxygen desaturation into the 88-89% and a nonproductive cough. Chest x-ray on admission demonstrated left lung pneumonia. CT scan of the chest demonstrated interstitial fibrosis with bronchiectasis. Cardiology being consulted for congestive heart failure. The patient states he noticed his oxygen saturation decreased to 88-89% on 3 L of oxygen via nasal cannula yesterday and has had a nonproductive cough since Thursday. He denies chest pain, chest pressure, palpitations, dizziness, shortness of breath, or fever. BNP 76. The patient is no in acute heart failure. Past Medical History: As per HPI and summarized below Past Surgical History: Mass removal to the left leg 2019 Family History: The patient's father had heart disease. Social History: The patient lives with his . Habits: The patient denies alcohol, tobacco, or illicit drug use. Home Meds: Carvedilol 6.25 mg daily Jardiance 10 mg daily Trelegy Ellipta 1 puff inhaled daily Metformin 500 mg daily Simvastatin 20 mg daily Current Meds: Current Medications Medications Dose Ordered Sig/Jeanette Start Time Stop Time Status Last Admin Acetaminophen 650 mg Q6H PRN 09/27/24 05:00 10/27/24 04:59 Acetaminophen 650 mg Q4H PRN 09/27/24 05:00 10/27/24 04:59 Ondansetron HCl 4 mg Q6H PRN 09/27/24 05:00 10/27/24 04:59 Albuterol 1 udvial [id number] 09/27/24 06:00 10/27/24 05:59 09/27/24 13:24 Azithromycin 250 ml @ 250 mls/hr Q24H 09/27/24 09:00 10/07/24 08:59 09/27/24 08:37 Enoxaparin Sodium 30 mg DAILY 09/27/24 09:00 10/27/24 08:59 09/27/24 08:37 Famotidine 20 mg BID 09/27/24 09:00 10/27/24 08:59 09/27/24 08:37 Dexamethasone Sodium Phosphate 6 mg Q24H 09/27/24 05:00 10/27/24 04:59 Ceftriaxone Sodium 1 gm Q24H 09/27/24 05:30 10/07/24 05:29 09/27/24 05:24 Dextrose 50 ml AD PRN 09/27/24 13:30 10/27/24 13:29 Glucagon 1 mg AD PRN 09/27/24 13:30 10/27/24 13:29 Insulin Human Regular INSULIN SLIDING SCAL... ACHS 09/27/24 16:30 10/27/24 16:29 09/27/24 16:44 Carvedilol 6.25 mg DAILY 09/28/24 09:00 10/28/24 08:59 Empaglifozin 10 mg DAILY 09/28/24 09:00 10/28/24 08:59 Simvastatin 20 mg HS 09/27/24 21:00 10/27/24 20:59 Home Med Fluticasone/ Umeclidin/ Vilan... DAILY 09/28/24 09:00 10/28/24 08:59 Furosemide 40 mg Q12H 09/27/24 13:30 10/27/24 13:29 09/27/24 13:27 Review of Systems: CONST: No fever, fatigue, or weight changes. EYES: No recent vision problems. ENT: No congestion, ear pain, or sore throat. C/V: No chest pain, palpitations, or edema. RESP: No cough, congestion, wheezing or shortness of breath. GI: No abdominal pain, nausea, vomiting, constipation, or diarrhea. : No incontinence or dysuria. SKIN: No rash. NEURO: No headache, focal numbness or weakness, dizziness, or seizures. PSYCH: No depression or anxiety. HEME: No abnormal bruising or bleeding. LYMPH: No swollen glands. Physical Examination: GENERAL: No acute distress. On 3L of o2 via NC HEAD: Normal with no signs of head trauma. EYES: PERRLA, EOMI, conjunctiva and sclera normal. ENT: Hearing grossly intact, normal oropharynx. NECK: Supple without JVD. There is no tenderness, lymphadenopathy, or masses. No thyromegaly. Normal carotid upstrokes without bruits. LUNGS: Clear breath sounds bilaterally. No wheezes, or rhonchi. HEART: Normal rate and rhythm. Normal S1 and S2 without murmurs, gallop or rub. VASC: Peripheral pulses +2 bilaterally. ABD: Bowel sounds normal, soft, nontender, no masses, no organomegaly. No audible bruits. : Not examined LYMPH: No lymphadenopathy noted. EXT: No clubbing, cyanosis or edema. SKIN: No rashes or lesions noted. NEURO: Awake, alert, and oriented x3. No focal sensory or strength deficits noted. Vital Signs (last 8hr) Date Time Temp Pulse Resp B/P (MAP) Pulse Ox O2 Delivery O2 Flow Rate FiO2 09/27/24 17:16 98.2 102 20 144/71 95 Nasal Cannula* 3 32 09/27/24 13:52 104 18 140/90 95 Nasal Cannula* 3 32 09/27/24 13:24 111 20 Laboratory: Hematology Labs: Test 09/27/24 05:49 09/27/24 01:48 Range/Units White Blood Count 8.7 4.8-10.8 K/uL Red Blood Count 5.01 4.50-6.20 MIL/uL Hemoglobin 15.4 14.0-18.0 g/dL Hematocrit 47.8 42-54 % Mean Corpuscular Volume 95.4 79-99 fL Mean Corpuscular Hemoglobin 30.7 27.0-33.0 pg Mean Corpuscular Hemoglobin Concent 32.2 32.0-36.0 g/dL Red Cell Distribution Width 12.4 11.0-15.5 % Platelet Count 232 130-400 K/uL Mean Platelet Volume 10.8 H 7.5-10.5 fL Immature Granulocyte % (Auto) 1.4 H 0-1 % Neutrophils (%) (Auto) 88.7 H 40.0-77.0 % Lymphocytes (%) (Auto) 5.3 L 21.0-51.0 % Monocytes (%) (Auto) 3.7 3.0-13.0 % Eosinophils (%) (Auto) 0.6 0.0-8.0 % Basophils (%) (Auto) 0.3 0.0-5.0 % Neutrophils # (Auto) 7.7 1.8-7.7 K/uL Lymphocytes # (Auto) 0.5 L 1.0-4.8 K/uL Monocytes # (Auto) 0.3 0.1-1.0 K/uL Eosinophils # (Auto) 0.05 0.00-0.70 K/uL Basophils # (Auto) 0.03 0.00-0.20 K/uL Absolute Immature Granulocyte (auto 0.12 0-1 K/uL Nucleated Red Blood Cells 0.0 0.0-0.19 % White Cell Morphology Comment CONSISTENT W/DIFF Chemistry Labs: Test 09/27/24 16:20 09/27/24 05:49 Range/Units Whole Blood Glucose 190 H 70-110 MG/DL Bedside Glucose Comment Notified Nurse Sodium Level 140 136-145 mmol/L Potassium Level 4.1 3.5-5.1 mmol/L Chloride Level 103 101-111 mmol/L Carbon Dioxide Level 25 21-32 mmol/L Blood Urea Nitrogen 16 7-18 mg/dL Creatinine 0.9 0.5-1.3 mg/dL Glomerular Filtration Rate Calc 94 >90 mL/min Random Glucose 147 H 70-105 mg/dL Hemoglobin A1c 5.6 4.0-6.0 % Estimated Average Glucose (eAG) 114 70-126 mg/dL Total Calcium 9.3 8.5-10.1 mg/dL Magnesium Level 1.90 1.80-2.40 mg/dL Total Bilirubin 0.7 0.2-1.0 mg/dL Aspartate Amino Transf (AST/SGOT) 21 10-37 U/L Alanine Aminotransferase (ALT/SGPT) 22 12-78 U/L Alkaline Phosphatase 79 50-136 U/L B-Type Natriuretic Peptide 91 0-100 pg/mL Total Protein 8.2 6.0-8.3 g/dL Albumin 3.6 3.5-5.0 g/dL Coagulation Labs: Test 09/27/24 05:49 Range/Units D-Dimer Quantitative (PE/DVT) 371 0-500 ng/mL Diagnostics / Radiology: Impression and Plan: Left lung pneumonia Chronic combined systolic and diastolic congestive heart failure, no acute exacerbations at this time Lexiscan stress test on 07/11/2024 demonstrated global hypokinesis, LVEF of 31%, no transient ischemic dilatation of the left ventricle, small size mild severity perfusion defect of the inferolateral segment however partial improvement in stress imaging 2D echo on 07/09/2024 with an EF of 30-35%, stage I diastolic dysfunction, global hypokinesis of the left ventricle, severe inferior and posterior hypokinesis, with mild lateral inferolateral hypokinesis HLD DM type II Chronic home O2 at 3L via NC since COVID-19 infection in 2020 Recent hospitalization 06/2024 for pneumonia Chronic combined systolic and diastolic congestive heart failure Not in acute heart exacerbation 2D echo on 07/09/2024 with an EF of 30-35%, stage I diastolic dysfunction BNP 76 Chest x-ray on admission demonstrated left lung pneumonia -Continue Carvedilol 6.25 mg daily and Jardiance 10mg daily -Start Entresto 24-26mg BID, first dose tonight at 2100 ATTESTATION BY PHYSICIAN I have reviewed the above documentation, participated in medical decision making, made necessary modifications, and agree with the treatment plan as documented by my mid-level provider above. BNP is normal twice, and CT scan does not show the typical findings of heart failure. Infiltrate is predominantly left-sided but there is fibrotic changes extensively on both sides; this patient does not appear to have an acute exacerbation of heart failure. My recommendation is to continue his previous heart failure medications and evaluate and treat pulmonary issues as appropriate. MD RUFINO Garcia VALERIE L [facility] Sep 27, 2024 18:59 JERRY STEPHENS MD Sep 27, 2024 22:13
--- NOTE | 2024-09-27 19:15 | NUR ---
PT CARE ASSUMED AT THIS TIME
[2024-09-27] MEDS: simVASTatin 20 MG TABLET PO SCH (21:01)
--- NOTE | 2024-09-27 21:11 | NUR ---
1ST ATTEMPT TO GIVE REPORT AT THIS TIME
--- NOTE | 2024-09-27 21:34 | NUR ---
REPORT GIVEN TO PERRY AT THIS TIME
[2024-09-27] MEDS ORDERED: PHARMACY COMMUNICATION MISC SCH (22:00)
[2024-09-28] VITALS (15 sets, daily range): BP systolic 104–131; BP diastolic 58–75; PULSE 86–97; RESP 18–22; TEMP 98–99.8; O2SAT 96
[2024-09-28 04:55] LABS: HEMATOCRIT 49.9 % (42-54); MEAN CORPUSCULAR HEMOGLOBIN 30.6 pg (27.0-33.0); MEAN CORPUSCULAR HGB CONC 31.9 g/dL (32.0-36.0); RED BLOOD CELL COUNT(AUTO) 5.2 MIL/uL (4.50-6.20); RED CELL DISTRIBUTION WIDTH 12.3 % (11.0-15.5); WHITE BLOOD COUNT (AUTO) 11.1 K/uL (4.8-10.8)
[2024-09-28 05:25] LABS: CREATININE 1.3 mg/dL (0.5-1.3); MAGNESIUM 2.4 mg/dL (1.80-2.40); POTASSIUM 3.8 mmol/L (3.5-5.1)
--- NOTE | 2024-09-28 07:51 | PN ---
[facility] CARDIOLOGY PROGRESS NOTE Date Patient Seen: Sep 28, 2024 Time of Visit: 07:47 Interval History: [CXR yesterday shows left sided opacity not consistent with CHF which is a bilateral distribution. CT chest with interstitial fibrosis. ] Physical Examination: GENERAL: [No acute distress.] HEAD: [Normal with no signs of head trauma.] EYES: [PERRLA, EOMI, conjunctiva and sclera normal.] ENT: [Hearing grossly intact, normal oropharynx.] NECK: [Supple without JVD. There is no tenderness, lymphadenopathy, or masses. No thyromegaly. Normal carotid upstrokes without bruits.] LUNGS: [reduced lung sounds left side.] HEART: [Normal rate and rhythm. Normal S1 and S2 without mumurs, gallop or rub.] VASC: [Peripheral pulses +2 bilaterally.] ABD: [Bowel sounds normal, soft, nontender, no masses, no organomegaly. No audible bruits.] : [Not examined] LYMPH: [No lymphadenopathy noted.] EXT: [No clubbing, cyanosis or edema.] SKIN: [No rashes or lesions noted.] NEURO: [Awake, alert, and oriented x3. No focal sensory or strength deficits noted.] Laboratory: [ ] Hematology Labs: Test 09/28/24 04:23 09/27/24 05:49 09/27/24 01:48 Range/Units White Blood Count 11.1 #H 4.8-10.8 K/uL Red Blood Count 5.20 4.50-6.20 MIL/uL Hemoglobin 15.9 14.0-18.0 g/dL Hematocrit 49.9 42-54 % Mean Corpuscular Volume 96.0 79-99 fL Mean Corpuscular Hemoglobin 30.6 27.0-33.0 pg Mean Corpuscular Hemoglobin Concent 31.9 L 32.0-36.0 g/dL Red Cell Distribution Width 12.3 11.0-15.5 % Platelet Count 246 130-400 K/uL Mean Platelet Volume 10.8 H 7.5-10.5 fL Nucleated Red Blood Cells 0.0 0.0-0.19 % Immature Granulocyte % (Auto) 1.4 H 0-1 % Neutrophils (%) (Auto) 88.7 H 40.0-77.0 % Lymphocytes (%) (Auto) 5.3 L 21.0-51.0 % Monocytes (%) (Auto) 3.7 3.0-13.0 % Eosinophils (%) (Auto) 0.6 0.0-8.0 % Basophils (%) (Auto) 0.3 0.0-5.0 % Neutrophils # (Auto) 7.7 1.8-7.7 K/uL Lymphocytes # (Auto) 0.5 L 1.0-4.8 K/uL Monocytes # (Auto) 0.3 0.1-1.0 K/uL Eosinophils # (Auto) 0.05 0.00-0.70 K/uL Basophils # (Auto) 0.03 0.00-0.20 K/uL Absolute Immature Granulocyte (auto 0.12 0-1 K/uL White Cell Morphology Comment CONSISTENT W/DIFF Chemistry Labs: Test 09/28/24 05:12 09/28/24 04:23 09/27/24 16:20 09/27/24 05:49 Range/Units Whole Blood Glucose 152 H 70-110 MG/DL Sodium Level 138 136-145 mmol/L Potassium Level 3.8 3.5-5.1 mmol/L Chloride Level 100 L 101-111 mmol/L Carbon Dioxide Level 30 21-32 mmol/L Blood Urea Nitrogen 27 H 7-18 mg/dL Creatinine 1.3 0.5-1.3 mg/dL Glomerular Filtration Rate Calc 61 >90 mL/min Random Glucose 151 H 70-105 mg/dL Total Calcium 9.0 8.5-10.1 mg/dL Magnesium Level 2.40 1.80-2.40 mg/dL Bedside Glucose Comment Notified Nurse Hemoglobin A1c 5.6 4.0-6.0 % Estimated Average Glucose (eAG) 114 70-126 mg/dL Total Bilirubin 0.7 0.2-1.0 mg/dL Aspartate Amino Transf (AST/SGOT) 21 10-37 U/L Alanine Aminotransferase (ALT/SGPT) 22 12-78 U/L Alkaline Phosphatase 79 50-136 U/L B-Type Natriuretic Peptide 91 0-100 pg/mL Total Protein 8.2 6.0-8.3 g/dL Albumin 3.6 3.5-5.0 g/dL Coagulation Labs: Test 09/27/24 05:49 Range/Units D-Dimer Quantitative (PE/DVT) 371 0-500 ng/mL Diagnostics / Radiology: [Copy/Paste Echos/Imaging Report here] Impression and Plan: [Left lung pneumonia Chronic combined systolic and diastolic congestive heart failure, no acute exacerbations at this time Lexiscan stress test on 07/11/2024 demonstrated global hypokinesis, LVEF of 31%, no transient ischemic dilatation of the left ventricle, small size mild se verity perfusion defect of the inferolateral segment however partial improvement in stress imaging 2D echo on 07/09/2024 with an EF of 30-35%, stage I diastolic dysfunction, global hypokinesis of the left ventricle, severe inferior and posterior hypokinesis, with mild lateral inferolateral hypokinesis HLD DM type II Chronic home O2 at 3L via NC since COVID-19 infection in 2020 Recent hospitalization 06/2024 for pneumonia Chronic combined systolic and diastolic congestive heart failure Not in acute heart exacerbation 2D echo on 07/09/2024 with an EF of 30-35%, stage I diastolic dysfunction BNP 76 Chest x-ray on admission demonstrated left lung pneumonia, continue antibiotics -Continue Carvedilol 6.25 mg daily and Jardiance 10mg daily -Start Entresto 24-26mg BID -will only give lasix 40 mg x1 today as Cr up to 1.3 Ivanna Dixon MD ] IVANNA DIXON MD Sep 28, 2024 07:51
[2024-09-28] MEDS: UMECLIDIN IH SCH (09:00)
[2024-09-28] MEDS: VILANTER IH SCH (09:00)
[2024-09-28] MEDS: FLUTICASONE IH SCH (09:00)
[2024-09-28] MEDS: SACUBITRIL/VALSARTAN 1 EACH TABLET PO SCH (09:09)
[2024-09-28] MEDS: EMPAGLIFLOZIN 10MG TABLET PO SCH (09:10)
[2024-09-28] MEDS: carVEDIlol 6.25 MG TABLET PO SCH (09:10)
--- NOTE | 2024-09-28 11:44 | PN ---
[facility] PROGRESS NOTE Date Patient Seen: Sep 28, 2024 Time of Visit: 11:37 Supervising Physician: Klever Primary Care Physician: Rojas Jacobs Outpatient Specialists: [ ] Inpatient Consults: LADY PROBLEM LIST: Acute on chronic hypoxemic respiratory failure POA resolved CHF not on exacerbation POA Sirs with organ dysfunction POA Pulmonary fibrosis Essential Hypertension POA Hyperlipidemia POA Type 2 Diabetes POA Morbid Obesity POA Plan Summary: Supplemental oxygen as needed Wean off as tolerated DC Lasix 1.5 L fluid restriction Continue Dexamethasone - December transition to oral in AM Continue antibiotics Outpt F/U in pulmonary clinic 1 week post discharge INTERVAL HISTORY: This is a 64-year-old male with past medical history of respiratory failure, CHF, hypertension, diabetes type 2, hyperlipidemia and COVID pneumonia who was brought to the ED for complaints of worsening shortness of breaths which started today.Patient reports ever since he had Covid pneumonia in 2020 which required him prolonged hospital confinement for recovery he kept having breathing problem and reason why he is on home Oxygen at 2- 3L/NC.Patient reports last June 2012 he attended a wedding at [place] in [place] and he started having low oxygen saturation and he was admitted for pneumonia.Today while he was about to go to bed he checked his Saturation and it's been maintaining in the high 80's so he kept increasing his Oxygen to 4 and up to 5L/NC but he is unable to keep it up to 90's so he decided to come to the ED for evaluation,he is concerned he might have pneumonia again he said.Patient reports he noticed he is unable to walk in short distances without being short of breath.Patient had an echocardiogram done on 07/09/2024 which revealed EF is 30-35% there is global hypokinesis of the left ventricle. Severe inferior and posterior hypokinesis mild lateral inferolateral hypokinesis stage I diastolic dysfunction. Patient also has a Lexiscan stress test done on July 11, 2024 which revealed there is global hypokinesis of the left ventricle with an estimated left ventricle EF of 31%. No transient ischemic dilation of the left ventricle. There is a small size mild severity perfusion defect of the inferolateral segment however partial improvement in stress imaging. Patient is seen and evaluated MD. Patient is sitting up in bed continues to be hypoxemic on3 L via nasal cannula which is her home baseline. Patient is awake alert and oriented x3. patient does report his respiratory status has improved from yesterday. Patient was started on broad-spectrum antibiotics for suspected community-acquired pneumonia. We will request a CT scan of the chest to further evaluate pleural effusion. Recommend to continue IV antibiotics and give trial of Lasix 40 mg IV every 12 hours x4 doses. We will continue to follow up with you. Patient has been advised to follow up outpatient pulmonary clinic 2 weeks post discharge. 09/28 - patient is seen and evaluated at the bedside. Patient is sitting up in bed does not appear to be in any acute distress at this time. Patient is currently on room air and reports his respiratory status has really improved since prior to admission. No acute changes reported overnight. Patient had a CT scan of the chest which shows bilateral interstitial fibrosis with bronchiectasis. No evidence for pulmonary nodule or pleural effusion seen. No need for Lasix at this time. Recommend continuing dexamethasone and transitioned to oral in a.m.. Patient has been advised to follow up with Dr. Nato Diehl in the Pulmonary Clinic1 week after discharge. REVIEW OF SYSTEMS: 12 point ROS reviewed with patient. Pertinent positives mentioned above. Otherwise negative. PHYSICAL EXAM: GENERAL: alert, weak, awake oriented x 3 HEENT: EOMI, Sclera non icteric, moist mucosa NECK: Supple, no JVD, trachea midline LUNGS: Clear breath sounds bilaterally. No wheezes HEART: Regular rate and rhythm. Normal S1 and S2, without murmurs ABD: Abdomen soft, nontender. Bowel sounds present EXT: No clubbing cyanosis or edema NEURO: Alert and oriented to person, follows commands Vital Signs (last 8hr) Date Time Temp Pulse Resp B/P (MAP) Pulse Ox O2 Delivery O2 Flow Rate FiO2 09/28/24 09:35 95 20 09/28/24 09:10 114/67 09/28/24 08:00 98.1 97 18 114/67 95 Nasal Cannula 3.0 09/28/24 06:45 95 20 N/Cannula Low lpm 3.0 32 09/28/24 06:43 95 20 09/28/24 04:00 98.8 97 20 116/70 94 Nasal Cannula 2.0 24 LABS: Hematology Labs: Test 09/28/24 04:23 09/27/24 05:49 09/27/24 01:48 Range/Units White Blood Count 11.1 #H 4.8-10.8 K/uL Red Blood Count 5.20 4.50-6.20 MIL/uL Hemoglobin 15.9 14.0-18.0 g/dL Hematocrit 49.9 42-54 % Mean Corpuscular Volume 96.0 79-99 fL Mean Corpuscular Hemoglobin 30.6 27.0-33.0 pg Mean Corpuscular Hemoglobin Concent 31.9 L 32.0-36.0 g/dL Red Cell Distribution Width 12.3 11.0-15.5 % Platelet Count 246 130-400 K/uL Mean Platelet Volume 10.8 H 7.5-10.5 fL Nucleated Red Blood Cells 0.0 0.0-0.19 % Immature Granulocyte % (Auto) 1.4 H 0-1 % Neutrophils (%) (Auto) 88.7 H 40.0-77.0 % Lymphocytes (%) (Auto) 5.3 L 21.0-51.0 % Monocytes (%) (Auto) 3.7 3.0-13.0 % Eosinophils (%) (Auto) 0.6 0.0-8.0 % Basophils (%) (Auto) 0.3 0.0-5.0 % Neutrophils # (Auto) 7.7 1.8-7.7 K/uL Lymphocytes # (Auto) 0.5 L 1.0-4.8 K/uL Monocytes # (Auto) 0.3 0.1-1.0 K/uL Eosinophils # (Auto) 0.05 0.00-0.70 K/uL Basophils # (Auto) 0.03 0.00-0.20 K/uL Absolute Immature Granulocyte (auto 0.12 0-1 K/uL White Cell Morphology Comment CONSISTENT W/DIFF Chemistry Labs: Test 09/28/24 11:10 09/28/24 04:23 09/27/24 16:20 09/27/24 05:49 Range/Units Whole Blood Glucose 208 H 70-110 MG/DL Sodium Level 138 136-145 mmol/L Potassium Level 3.8 3.5-5.1 mmol/L Chloride Level 100 L 101-111 mmol/L Carbon Dioxide Level 30 21-32 mmol/L Blood Urea Nitrogen 27 H 7-18 mg/dL Creatinine 1.3 0.5-1.3 mg/dL Glomerular Filtration Rate Calc 61 >90 mL/min Random Glucose 151 H 70-105 mg/dL Total Calcium 9.0 8.5-10.1 mg/dL Magnesium Level 2.40 1.80-2.40 mg/dL Bedside Glucose Comment Notified Nurse Hemoglobin A1c 5.6 4.0-6.0 % Estimated Average Glucose (eAG) 114 70-126 mg/dL Total Bilirubin 0.7 0.2-1.0 mg/dL Aspartate Amino Transf (AST/SGOT) 21 10-37 U/L Alanine Aminotransferase (ALT/SGPT) 22 12-78 U/L Alkaline Phosphatase 79 50-136 U/L B-Type Natriuretic Peptide 91 0-100 pg/mL Total Protein 8.2 6.0-8.3 g/dL Albumin 3.6 3.5-5.0 g/dL Coagulation Labs: Test 09/27/24 05:49 Range/Units D-Dimer Quantitative (PE/DVT) 371 0-500 ng/mL DIAGNOSTICS / RADIOLOGY RESULTS: PATIENT: JACINDA YOUSIF MR#: [id number] : 1960 SEX: M AGE: 64 LOCATION: [facility] ORDER 1323 STATUS: ADM IN REPORT#: [id number] SERVICE 1321 REASON: left effusion ORDERING PHYSICIAN: RIVERA TALAMANTES NP PROCEDURE: CHEST WO - CT CHEST W/O CONTRAST CT CHEST W/O CONTRAST HISTORY: Trauma COMPARISON: 07/08/2024 TECHNIQUE: Multiple sequential axial images of the chest were obtained from the thoracic inlet through upper abdomen. Patient was not given contrast through intravenous route. FINDINGS: There are bilateral interstitial fibrosis with bronchiectasis. Coronary arterial calcifications are seen. There is no evidence of pulmonary nodule or parenchymal disease. No pleural effusion or pericardial effusion is seen. There is no evidence of pneumothorax. There are normal size mediastinal and hilar lymph nodes. The heart is not enlarged. Degenerative changes of the thoracolumbar spine are present. There is no evidence of adrenal nodule. IMPRESSION: 1. No evidence of pulmonary nodule or effusion is seen. Interstitial fibrosis with bronchiectasis. CT was performed with one or more following dose reduction techniques: automated exposure control, adjustment of the mA and kv according to patient's size, or use of a iterative reconstruction technique. DICTATED BY: CHRIS LIZARRAGA MD DATE: 09/27/24 1436 ELECTRONICALLY SIGNED BY: CHRIS LIZARRAGA MD DATE: 09/27/24 1446 PLAN NEURO: Minimize central acting medications as possible. Maintain fall precautions, adequate lighting during the day PULMONARY: Supplemental 02 as needed. Maintain aspiration precautions at all times CARDIOVASCULAR: Follow hemodynamics. Vital signs per facility protocol GI & NUTRITION: Continue with nutritional support. Continue stool softeners and laxatives as needed. KIDNEYS & ELECTROLYTES: Strict monitoring of intake, output and overall fluid balance. Avoid nephrotoxic medications to the extent possible. Medications to be dosed according to renal function. Monitor electrolytes and replace as needed ENDOCRINE: Maintain blood glucose between 100-180 at all times. Hypoglycemia protocol in place INFECTIOUS DISEASE: Trend temperature, WBC and procalcitonin level Follow cultures, deescalate antibiotics as soon as possible. Panculture if new onset fever ONCOLOGY/HEMATOLOGY/COAGULATION: Monitor for s/s of bleeding Monitor hemoglobin, coagulation studies as needed SKIN: Pressure ulcer prevention per facility protocol Specialty mattress ORTHO/REHAB: Continue PT/OT Prophylaxis: Continue GI and DVT prophylaxis Code Status: Full Resuscitation Disposition: As per attending. Other: Total patient care time exceeds 35 minutes excluding all procedures. ATTESTATION BY PHYSICIAN I attest that I reviewed and discussed the case with the Physician Cable Splicer Apprentice as well as agree with the Physician Cable Splicer Apprentice's findings, plans of care, and documentation above. Jamar Perry MD,RIVERA Marquez NP Sep 28, 2024 11:44
--- NOTE | 2024-09-28 12:44 | HMCIMG ---
CHEST 1VW HISTORY: Lung pneumonia COMPARISON: None FINDINGS: A frontal projection of the chest was obtained. Left lung pulmonary infiltrates is seen. The heart is borderline enlarged. Degenerative changes are seen. No evidence of aortic calcification is seen. IMPRESSION: 1. Left lung pulmonary infiltrates.
--- NOTE | 2024-09-28 13:06 | PN ---
[facility] PROGRESS NOTE Date of Service: Sep 28, 2024 Time of Service: 12:58 SUBJECTIVE: [64-year-old male admitted due to acute on chronic respiratory failure for which patient was on oxygen at 3 L at home but patient continued with symptoms. Patient has history of congestive heart failure but not on any exacerbation. Patient was evaluated by cutting and printing machine operator who added [id number] mg-26 mg p.o. b.i.d.. Patient was given Lasix 40 mg IV x1. patient was evaluated in room 414 and continuously on 3 L via nasal cannula. ] REVIEW OF SYSTEMS CONSTITUTIONAL: Denies fevers, chills, or night sweats. No unintentional weight loss reported. NEUROLOGICAL: Denies headache, amaurosis fugax, motor weakness, sensory deficit, vertigo/spinning sensation, gait abnormalities, or tremors. ENT: No hearing loss, otalgia, otorrhea, rhinitis, rhinorrhea, hoarseness, or sore throat. CARDIOVASCULAR: Positive dyspnea on exertion and orthopnea uses three pillows Denies any exertional angina, paroxysmal nocturnal dyspnea, palpitations, life-threatening arrhythmias, claudication. PULMONARY: Positive shortness of breath with occasional productive cough Denies hemoptysis, pleuritic chest pain. SLEEP: Denies morning headaches, daytime somnolence or napping. Denies difficulty falling asleep, staying asleep, waking from sleep. Denies knowledge of snoring. GASTROINTESTINAL: Denies any type of dysphagia to either liquids or solids. Denies nausea, vomiting, pyrosis, early satiety, abdominal pain, diarrhea, constipation, or changes in stool consistency or caliber. Denies coffee-ground emesis, hematemesis, hematochezia, or melanotic stools. GENITOURINARY: Denies frequency, urgency, nocturia, hematuria or incontinence (Storage/Irritative symptoms.) Low urinary stream, straining to void, urinary intermittency or hesitancy, splitting of the voiding stream, terminal dribbling. ENDOCRINOLOGIC: Denies polyuria, polydipsia, polyphagia or heat/cold intolerances. HEMATOLOGIC: Denies thrombophilia/previous clots, or coagulopathy/bleeding disorders. ONCOLOGIC: Denies personal history of malignancy. DERMATOLOGIC: Denies rashes or pruritus. PSYCHIATRIC: Denies any suicidal or homicidal ideation. Denies hallucinations. PHYSICAL EXAM GENERAL APPEARANCE: The patient is awake, alert, and oriented, in no acute cardiopulmonary distress. NEUROLOGICAL: Cranial nerves II-XII grossly intact. Motor is 5/5 in bilateral upper and lower extremities proximal to distal. No sensory deficits. HEENT: Face is symmetric. Pupils are equal and reactive. Extraocular movements are intact. NECK: Supple. No JVD. No thyromegaly. No submental, submandibular, pre- /postauricular, occipital or supraclavicular lymphadenopathy. CHEST: Normal chest expansion. No Telemetry. LUNGS: Absence of any rales, rhonchi or any wheezing. CARDIOVASCULAR: Regular. S1 and S2 normal. No appreciable rubs, murmurs or gallops. ABDOMEN: Soft, nontender, and nondistended. There is no rebound, voluntary guarding, or rigidity. : Deferred. No [place]more. EXTREMITIES: Non-edematous and not cyanotic. No clubbing. Good capillary refill. SKIN: No skin breakdown. Vital Signs (last 8hr) Date Time Temp Pulse Resp B/P (MAP) Pulse Ox O2 Delivery O2 Flow Rate FiO2 09/28/24 12:04 98.4 90 18 123/65 96 Nasal Cannula 3.0 09/28/24 09:35 95 20 09/28/24 09:10 114/67 09/28/24 08:00 98.1 97 18 114/67 95 Nasal Cannula 3.0 09/28/24 06:45 95 20 N/Cannula Low lpm 3.0 32 09/28/24 06:43 95 20 LABS: Laboratory: Test 09/28/24 11:10 09/28/24 04:23 09/27/24 16:20 09/27/24 05:49 Range/Units Whole Blood Glucose 208 H 70-110 MG/DL White Blood Count 11.1 #H 4.8-10.8 K/uL Red Blood Count 5.20 4.50-6.20 MIL/uL Hemoglobin 15.9 14.0-18.0 g/dL Hematocrit 49.9 42-54 % Mean Corpuscular Volume 96.0 79-99 fL Mean Corpuscular Hemoglobin 30.6 27.0-33.0 pg Mean Corpuscular Hemoglobin Concent 31.9 L 32.0-36.0 g/dL Red Cell Distribution Width 12.3 11.0-15.5 % Platelet Count 246 130-400 K/uL Mean Platelet Volume 10.8 H 7.5-10.5 fL Nucleated Red Blood Cells 0.0 0.0-0.19 % Sodium Level 138 136-145 mmol/L Potassium Level 3.8 3.5-5.1 mmol/L Chloride Level 100 L 101-111 mmol/L Carbon Dioxide Level 30 21-32 mmol/L Blood Urea Nitrogen 27 H 7-18 mg/dL Creatinine 1.3 0.5-1.3 mg/dL Glomerular Filtration Rate Calc 61 >90 mL/min Random Glucose 151 H 70-105 mg/dL Total Calcium 9.0 8.5-10.1 mg/dL Magnesium Level 2.40 1.80-2.40 mg/dL Bedside Glucose Comment Notified Nurse Immature Granulocyte % (Auto) 1.4 H 0-1 % Neutrophils (%) (Auto) 88.7 H 40.0-77.0 % Lymphocytes (%) (Auto) 5.3 L 21.0-51.0 % Monocytes (%) (Auto) 3.7 3.0-13.0 % Eosinophils (%) (Auto) 0.6 0.0-8.0 % Basophils (%) (Auto) 0.3 0.0-5.0 % Neutrophils # (Auto) 7.7 1.8-7.7 K/uL Lymphocytes # (Auto) 0.5 L 1.0-4.8 K/uL Monocytes # (Auto) 0.3 0.1-1.0 K/uL Eosinophils # (Auto) 0.05 0.00-0.70 K/uL Basophils # (Auto) 0.03 0.00-0.20 K/uL Absolute Immature Granulocyte (auto 0.12 0-1 K/uL D-Dimer Quantitative (PE/DVT) 371 0-500 ng/mL Urine Color LIGHT-YELLOW YELLOW Urine Appearance CLEAR CLEAR Urine pH 5.0 5.0-8.0 Urine Specific Ray 1.038 H 1.001-1.031 Urine Protein 30 H NEGATIVE mg/dL Urine Glucose (UA) >=1000 H NEGATIVE mg/dL Urine Ketones 10 H NEGATIVE mg/dL Urine Occult Blood NEGATIVE NEGATIVE Urine Nitrate NEGATIVE NEGATIVE Urine Bilirubin NEGATIVE NEGATIVE mg/dL Urine Urobilinogen 0.2 0.2-1.0 mg/dL Urine Leukocyte Esterase NEGATIVE NEGATIVE Caridad/uL Urine RBC 2-5 H 0-1 /HPF Urine WBC 2-5 H 0-1 /HPF Urine Squamous Epithelial Cells FEW 0-2 /HPF Urine Bacteria RARE None Seen /HPF Hemoglobin A1c 5.6 4.0-6.0 % Estimated Average Glucose (eAG) 114 70-126 mg/dL Total Bilirubin 0.7 0.2-1.0 mg/dL Aspartate Amino Transf (AST/SGOT) 21 10-37 U/L Alanine Aminotransferase (ALT/SGPT) 22 12-78 U/L Alkaline Phosphatase 79 50-136 U/L B-Type Natriuretic Peptide 91 0-100 pg/mL Total Protein 8.2 6.0-8.3 g/dL Albumin 3.6 3.5-5.0 g/dL Test 09/27/24 01:48 09/27/24 00:59 Range/Units White Cell Morphology Comment CONSISTENT W/DIFF Influenza Type A Antigen Negative For Type A NEGATIVE Influenza Type B Antigen Negative For Type B NEGATIVE SARS-CoV-2, RNA, NAAT NEGATIVE SARS CoV-2 NEGATIVE Current Medications Medications (Trade) Dose Ordered Sig/Jeanette Route PRN Reason Start Time Stop Time Status Last Admin Dose Admin Acetaminophen (TYLenol 325MG TAB) 650 mg Q4H PRN PO MILD PAIN (1-3) 09/27/24 05:00 10/27/24 04:59 Acetaminophen (TYLenol 325MG TAB) 650 mg Q6H PRN PO TEMPERATURE GREATER THAN 101.5 09/27/24 05:00 10/27/24 04:59 Albuterol (DUOneb) 1 udvial [id number] IH 09/27/24 06:00 10/27/24 05:59 09/28/24 09:35 1 UDVIAL Azithromycin 250 ml @ 250 mls/hr Q24H IV 09/27/24 09:00 10/07/24 08:59 09/28/24 09:07 250 MLS/HR Carvedilol (Coreg 6.25MG) 6.25 mg DAILY PO 09/28/24 09:00 10/28/24 08:59 09/28/24 09:10 6.25 MG Ceftriaxone Sodium 1 gm/ Sodium Chloride 50 ml @ 100 mls/hr Q24H IV 09/27/24 05:00 09/27/24 05:09 DC Ceftriaxone Sodium (ROCEphine 1G INJ) 1 gm Q24H IVPB 09/27/24 05:30 10/07/24 05:29 09/28/24 04:20 1 GM Dexamethasone Sodium Phosphate (dexaMETHasone 4MG/ML 1ML VIAL) 6 mg Q24H IV 09/27/24 05:00 10/27/24 04:59 09/28/24 04:20 6 MG Dextrose (D50w) 50 ml AD PRN IV HYPOGLYCEMIA PROTOCOL 09/27/24 13:30 10/27/24 13:29 Empaglifozin (Jardiance 10mg) 10 mg DAILY PO 09/28/24 09:00 10/28/24 08:59 09/28/24 09:10 10 MG Enoxaparin Sodium (Lovenox) 30 mg DAILY SQ 09/27/24 09:00 10/27/24 08:59 09/28/24 09:09 30 MG Famotidine (Pepcid 20mg Vial) 20 mg BID IV 09/27/24 09:00 10/27/24 08:59 09/28/24 09:10 20 MG Furosemide (LASix 40MG VIAL) 40 mg Q12H IVP 09/27/24 13:30 09/28/24 07:51 DC 09/28/24 01:14 40 MG Glucagon (Glucagon 1mg Kit) 1 mg AD PRN IM HYPOGLYCEMIA PROTOCOL 09/27/24 13:30 10/27/24 13:29 Home Med (Home Medication) Fluticasone/ Umeclidin/ Vilan... DAILY IH 09/28/24 09:00 10/28/24 08:59 Insulin Human Regular (humuLIN R 100 UNIT/ML 3ML) INSULIN SLIDING SCAL... ACHS SQ 09/27/24 16:30 10/27/24 16:29 09/28/24 11:53 6 UNIT Levofloxacin (LEvaquIN 500MG TAB) 250 mg Q24H PO 09/27/24 02:00 09/27/24 05:05 DC 09/27/24 02:03 250 MG Levofloxacin/ Dextrose 250 ml @ 100 mls/hr Q24H IV 09/27/24 02:00 09/27/24 01:56 DC Ondansetron HCl (zoFRAN 4MG INJ) 4 mg Q6H PRN IV NAUSEA/VOMITING 09/27/24 05:00 3/13/25 04:59 Pharmacy Profile Note (Pharmacy Communication) 1 each AD MISC 09/27/24 22:00 10/04/24 21:59 Sacubitril/ Valsartan (Entresto 24 Mg-26 Mg Tablet) 1 each DAILY PO 09/28/24 09:00 10/28/24 08:59 09/28/24 09:09 1 EACH Simvastatin (zoCOR) 20 mg HS PO 09/27/24 21:00 10/27/24 20:59 09/27/24 21:01 20 MG DIAGNOSTICS / RADIOLOGY: [ ] ASSESSMENT: Acute on chronic respiratory failure POA Suspected left lung pneumonia with left pleural effusion POA CHF not on exacerbation POA Sirs with organ dysfunction POA Hypertension POA Hyperlipidemia POA Diabetes POA Morbid Obesity POA PLAN: Continue medical telemetry admission Continue with oxygen supplementation to keep O2 sat greater than 92% Continue with ceftriaxone1 g Q 24 hours Continue with IV phalanx with dexamethasone 6 mg Q 24 hours IV Continue with heart healthy diet Continue with Lovenox 30 mg subQ for DVT prophylaxis Continue Famotidine 20 mg IV bid for GI prophylaxis We will continued replace electrolytes as needed per protocol Continue insulin sliding scale AC & HS with hypoglycemia protocol Continue prn medication for fever,pain,cough and nausea Continue DuoNeb treatment Daily weight and strict I&O Labs in a.m. Appreciate recommendations from cutting and printing machine operator Appreciate pulmonology input Disposition: Discharged at home in24 hours if he continues to be stable. Patient was started with new medication Entresto b.i.d. today Case discussed with attending physician and came up with above treatment and plan of care. ATTESTATION BY PHYSICIAN I have seen and examined the patient. I reviewed the documentation, medical decision making, and treatment plan as noted by the mid-level provider above. I agree with the findings and plan of care. Janusz Boyd IV, MD, JANICE B AGPCARACELI Sep 28, 2024 13:06
[2024-09-28] MEDS: furoSEMIDE 40MG VIAL IVP ONE (13:57)
--- NOTE | 2024-09-28 14:03 | NUR ---
[facility]TP CM MET WITH PT THIS MORNING INITIAL ASSESSMENT DONE. PATIENT IS INDEPENDENT PRIOR TO ADMISSION, LIVES AT HOME WITH SPOUSE AND DAUGHTER. PATIENT HAS A WALKER, WHEELCHAIR. SHOWER CHAIR, BEDSIDE COMMODE. O2 CONCENTRATOR AND PORTABLE W/APRIA. GOES TO [address] IN [place] FOR MEDS. DENIES ANY OTHER EQUIPMENT/SERVICES. FEELS SAFE TO GO BACK HOME, STILL DRIVE, SPOUSE ABLE TO ASSIST WITH TRANSPORTATION AND NEEDS NECESSARY. DCP HOME ONCE STABLE. CM TO CONTINUE TO FOLLOW UP. Addendum: 09/28/24 at 1407 by SAGAR RAINEY LVN CM Amended: Links added.
[2024-09-29] VITALS (7 sets, daily range): BP systolic 106–136; BP diastolic 64–86; PULSE 87–96; RESP 18–22; TEMP 97.9–98.3; O2SAT 96
[2024-09-29 03:59] LABS: HEMATOCRIT 48.9 % (42-54); MEAN CORPUSCULAR HEMOGLOBIN 30.7 pg (27.0-33.0); MEAN CORPUSCULAR HGB CONC 31.7 g/dL (32.0-36.0); MEAN CORPUSCULAR VOLUME 96.8 fL (79-99); RED BLOOD CELL COUNT(AUTO) 5.05 MIL/uL (4.50-6.20); RED CELL DISTRIBUTION WIDTH 12.5 % (11.0-15.5); WHITE BLOOD COUNT (AUTO) 9.3 K/uL (4.8-10.8)
[2024-09-29 04:10] LABS: MAGNESIUM 2.4 mg/dL (1.80-2.40); POTASSIUM 3.3 mmol/L (3.5-5.1)
[2024-09-29] MEDS ORDERED: PoTASSium chl 10% ELIXIR 20MEQ 20 MEQ/15 ML UDCUP PO PRN (04:30)
[2024-09-29] MEDS ORDERED: MAGNESIUM 2GM PREMIX 50ML 50 ML IV PRN (04:30)
[2024-09-29] MEDS ORDERED: PoTASSium chloRIDE 20MEQ/100ML 100 ML IV PRN (04:30)
[2024-09-29] MEDS: PoTASSium chloRIDE 20MEQ ER 20 MEQ ERTAB PO PRN (05:03)
[2024-09-29] MEDS ORDERED: SACU1TAB PO (10:17)
[2024-09-29] MEDS ORDERED: FURO40TA7 PO (10:17)
[2024-09-29] MEDS ORDERED: METH4TAB3 PO (10:18)
[2024-09-29] MEDS ORDERED: CEFD300C3 PO (10:18)
--- NOTE | 2024-09-29 10:22 | PN ---
[facility] CARDIOLOGY PROGRESS NOTE Cardiology progress note dictated for Ivanna Dixon MD Date Patient Seen: Sep 29, 2024 Interval History: Chest x-ray today with slight improvement to the left upper lung infiltrates. The patient voices feeling much better. Physical Examination: GENERAL: No acute distress. On 3L of O2 via NC. HEAD: Normal with no signs of head trauma. EYES: PERRLA, EOMI, conjunctiva and sclera normal. NECK: Supple without JVD. There is no tenderness, lymphadenopathy, or masses. No thyromegaly. Normal carotid upstrokes without bruits. LUNGS: Coarse breath sounds bilaterally increased to bases. HEART: Normal rate and rhythm. Normal S1 and S2 without murmurs, gallop or rub. VASC: Peripheral pulses +2 bilaterally. EXT: No clubbing, cyanosis or edema. NEURO: Awake, alert, and oriented x3. No focal neurological deficits noted. Laboratory: Hematology Labs: Test 09/29/24 03:45 Range/Units White Blood Count 9.3 4.8-10.8 K/uL Red Blood Count 5.05 4.50-6.20 MIL/uL Hemoglobin 15.5 14.0-18.0 g/dL Hematocrit 48.9 42-54 % Mean Corpuscular Volume 96.8 79-99 fL Mean Corpuscular Hemoglobin 30.7 27.0-33.0 pg Mean Corpuscular Hemoglobin Concent 31.7 L 32.0-36.0 g/dL Red Cell Distribution Width 12.5 11.0-15.5 % Platelet Count 246 130-400 K/uL Mean Platelet Volume 10.7 H 7.5-10.5 fL Nucleated Red Blood Cells 0.0 0.0-0.19 % Chemistry Labs: Test 09/29/24 05:54 09/29/24 03:45 09/27/24 16:20 Range/Units Whole Blood Glucose 121 H 70-110 MG/DL Sodium Level 138 136-145 mmol/L Potassium Level 3.3 L 3.5-5.1 mmol/L Chloride Level 101 101-111 mmol/L Carbon Dioxide Level 31 21-32 mmol/L Blood Urea Nitrogen 31 H 7-18 mg/dL Creatinine 1.0 0.5-1.3 mg/dL Glomerular Filtration Rate Calc 83 >90 mL/min Random Glucose 113 H 70-105 mg/dL Total Calcium 8.5 8.5-10.1 mg/dL Magnesium Level 2.40 1.80-2.40 mg/dL Bedside Glucose Comment Notified Nurse Diagnostics / Radiology: Impression and Plan: Left lung pneumonia Chronic combined systolic and diastolic congestive heart failure, no acute exacerbations at this time Lexiscan stress test on 07/11/2024 demonstrated global hypokinesis, LVEF of 31%, no transient ischemic dilatation of the left ventricle, small size mild severity perfusion defect of the inferolateral segment however partial improvement in stress imaging 2D echo on 07/09/2024 with an EF of 30-35%, stage I diastolic dysfunction, global hypokinesis of the left ventricle, severe inferior and posterior hypokinesis, with mild lateral inferolateral hypokinesis HLD DM type II Chronic home O2 at 3L via NC since COVID-19 infection in 2020 Recent hospitalization 06/2024 for pneumonia Chronic combined systolic and diastolic congestive heart failure Not in acute heart exacerbation 2D echo on 07/09/2024 with an EF of 30-35%, stage I diastolic dysfunction BNP 76 Chest x-ray on admission demonstrated left lung pneumonia, continue antibiotics -Continue Carvedilol 6.25 mg daily and Jardiance 10mg daily -Start Entresto 24-26mg BID, will need RX -Start Lasix 40mg po daily, will leave a prescription in the chart for him. Creatinine has normalized to 1.0 today. -Follow-up with Dr. Celso Dixon in 7 days after discharge I will sign off. ALYX JOY Sep 29, 2024 10:22 IVANNA DIXON MD Sep 29, 2024 13:50
--- NOTE | 2024-09-29 11:09 | PN ---
[facility] PROGRESS NOTE Date Patient Seen: Sep 29, 2024 Time of Visit: 11:06 Supervising Physician: Dr Cooper Primary Care Physician: Rojas Jacobs Outpatient Specialists: [ ] Inpatient Consults: LADY PROBLEM LIST: Acute on chronic hypoxemic respiratory failure POA resolved CHF not on exacerbation POA stable Sirs with organ dysfunction POA Pulmonary fibrosis Essential Hypertension POA Hyperlipidemia POA Type 2 Diabetes POA Morbid Obesity POA Plan Summary: Supplemental oxygen as needed Wean off as tolerated 1.5 L fluid restriction Continue Dexamethasone - December transition to oral in AM Continue antibiotics Outpt F/U in pulmonary clinic 1 week post discharge Okay to [place] home from pulmonary standpoint INTERVAL HISTORY: This is a 64-year-old male with past medical history of respiratory failure, CHF, hypertension, diabetes type 2, hyperlipidemia and COVID pneumonia who was brought to the ED for complaints of worsening shortness of breaths which started today.Patient reports ever since he had Covid pneumonia in 2020 which required him prolonged hospital confinement for recovery he kept having breathing problem and reason why he is on home Oxygen at 2- 3L/NC.Patient reports last June 2012 he attended a wedding at [place] in [place] and he started having low oxygen saturation and he was admitted for pneumonia.Today while he was about to go to bed he checked his Saturation and it's been maintaining in the high 80's so he kept increasing his Oxygen to 4 and up to 5L/NC but he is unable to keep it up to 90's so he decided to come to the ED for evaluation,he is concerned he might have pneumonia again he said.Patient reports he noticed he is unable to walk in short distances without being short of breath.Patient had an echocardiogram done on 07/09/2024 which revealed EF is 30-35% there is global hypokinesis of the left ventricle. Severe inferior and posterior hypokinesis mild lateral inferolateral hypokinesis stage I diastolic dysfunction. Patient also has a Lexiscan stress test done on July 11, 2024 which revealed there is global hypokinesis of the left ventricle with an estimated left ventricle EF of 31%. No transient ischemic dilation of the left ventricle. There is a small size mild severity perfusion defect of the inferolateral segment however partial improvement in stress imaging. Patient is seen and evaluated MD. Patient is sitting up in bed continues to be hypoxemic on3 L via nasal cannula which is her home baseline. Patient is awake alert and oriented x3. patient does report his respiratory status has improved from yesterday. Patient was started on broad-spectrum antibiotics for suspected community-acquired pneumonia. We will request a CT scan of the chest to further evaluate pleural effusion. Recommend to continue IV antibiotics and give trial of Lasix 40 mg IV every 12 hours x4 doses. We will continue to follow up with you. Patient has been advised to follow up outpatient pulmonary clinic 2 weeks post discharge. 09/28 - patient is seen and evaluated at the bedside. Patient is sitting up in bed does not appear to be in any acute distress at this time. Patient is currently on room air and reports his respiratory status has really improved since prior to admission. No acute changes reported overnight. Patient had a CT scan of the chest which shows bilateral interstitial fibrosis with bronchiectasis. No evidence for pulmonary nodule or pleural effusion seen. No need for Lasix at this time. Recommend continuing dexamethasone and trans itioned to oral in a.m.. Patient has been advised to follow up with Dr. Nato Diehl in the Pulmonary Clinic1 week after discharge. 09/29 - patient is seen sitting up at a chair continues on3 L via nasal cannula which is his home baseline. Patient reports his respiratory status has greatly improved as he has been able to ambulate around the nurse's station without worsening dyspnea. No acute changes reported overnight. Patient has been advised to follow up in Pulmonary Clinic1 week post discharge. Patient to continue oral steroids on discharge. Vital signs are stable. Labs are within normal limits. From pulmonary standpoint, patient may be discharged home. REVIEW OF SYSTEMS: 12 point ROS reviewed with patient. Pertinent positives mentioned above. Otherwise negative. PHYSICAL EXAM: GENERAL: alert, weak, awake oriented x 3 HEENT: EOMI, Sclera non icteric, moist mucosa NECK: Supple, no JVD, trachea midline LUNGS: Clear breath sounds bilaterally. No wheezes HEART: Regular rate and rhythm. Normal S1 and S2, without murmurs ABD: Abdomen soft, nontender. Bowel sounds present EXT: No clubbing cyanosis or edema NEURO: Alert and oriented to person, follows commands Vital Signs (last 8hr) Date Time Temp Pulse Resp B/P (MAP) Pulse Ox O2 Delivery O2 Flow Rate FiO2 09/29/24 10:21 93 18 09/29/24 10:21 93 18 N/Cannula Low lpm 3.0 32 09/29/24 08:56 132/76 09/29/24 08:00 98.2 96 18 132/76 96 Nasal Cannula 3.0 09/29/24 06:48 95 18 09/29/24 04:00 97.9 87 20 111/64 98 Nasal Cannula 3.0 LABS: Hematology Labs: Test 09/29/24 03:45 Range/Units White Blood Count 9.3 4.8-10.8 K/uL Red Blood Count 5.05 4.50-6.20 MIL/uL Hemoglobin 15.5 14.0-18.0 g/dL Hematocrit 48.9 42-54 % Mean Corpuscular Volume 96.8 79-99 fL Mean Corpuscular Hemoglobin 30.7 27.0-33.0 pg Mean Corpuscular Hemoglobin Concent 31.7 L 32.0-36.0 g/dL Red Cell Distribution Width 12.5 11.0-15.5 % Platelet Count 246 130-400 K/uL Mean Platelet Volume 10.7 H 7.5-10.5 fL Nucleated Red Blood Cells 0.0 0.0-0.19 % Chemistry Labs: Test 09/29/24 05:54 09/29/24 03:45 09/27/24 16:20 Range/Units Whole Blood Glucose 121 H 70-110 MG/DL Sodium Level 138 136-145 mmol/L Potassium Level 3.3 L 3.5-5.1 mmol/L Chloride Level 101 101-111 mmol/L Carbon Dioxide Level 31 21-32 mmol/L Blood Urea Nitrogen 31 H 7-18 mg/dL Creatinine 1.0 0.5-1.3 mg/dL Glomerular Filtration Rate Calc 83 >90 mL/min Random Glucose 113 H 70-105 mg/dL Total Calcium 8.5 8.5-10.1 mg/dL Magnesium Level 2.40 1.80-2.40 mg/dL Bedside Glucose Comment Notified Nurse DIAGNOSTICS / RADIOLOGY RESULTS: [ ] PLAN NEURO: Minimize central acting medications as possible. Maintain fall precautions, adequate lighting during the day PULMONARY: Supplemental 02 as needed. Maintain aspiration precautions at all times CARDIOVASCULAR: Follow hemodynamics. Vital signs per facility protocol GI & NUTRITION: Continue with nutritional support. Continue stool softeners and laxatives as needed. KIDNEYS & ELECTROLYTES: Strict monitoring of intake, output and overall fluid balance. Avoid nephrotoxic medications to the extent possible. Medications to be dosed according to renal function. Monitor electrolytes and replace as needed ENDOCRINE: Maintain blood glucose between 100-180 at all times. Hypoglycemia protocol in place INFECTIOUS DISEASE: Trend temperature, WBC and procalcitonin level Follow cultures, deescalate antibiotics as soon as possible. Panculture if new onset fever ONCOLOGY/HEMATOLOGY/COAGULATION: Monitor for s/s of bleeding Monitor hemoglobin, coagulation studies as needed SKIN: Pressure ulcer prevention per facility protocol Specialty mattress ORTHO/REHAB: Continue PT/OT Prophylaxis: Continue GI and DVT prophylaxis Code Status: Full Resuscitation Disposition: As per attending. Other: Total patient care time exceeds 35 minutes excluding all procedures. ATTESTATION BY PHYSICIAN I attest that I reviewed and discussed the case with the Physician Radar Signal Processing Engineer as well as agree with the Physician Radar Signal Processing Engineer's findings, plans of care, and documentation above. Jamar Perry MD,RIVERA N SLIP COVER ESTIMATOR Sep 29, 2024 11:09
--- NOTE | 2024-09-29 11:28 | HMCIMG ---
CHEST 1VW HISTORY: Left lung pneumonia COMPARISON: 09/28/2024 FINDINGS: A frontal projection of the chest was obtained. Left lung pulmonary infiltrates are seen slightly increased from previous study. The heart is borderline enlarged. Prominent interstitial markings are seen. No evidence of aortic calcification is seen. IMPRESSION: 1. Left lung pulmonary infiltrates slightly increased from previous study.
--- NOTE | 2024-09-29 11:41 | DS ---
Discharge Summary Hospital Course Summary: 64-year-old male with past medical history of respiratory failure, CHF, hypertension, diabetes type 2, hyperlipidemia and COVID pneumonia who was brought to the ED for complaints of worsening shortness of breaths which started today.Patient reports ever since he had Covid pneumonia in 2020 which required him prolonged hospital confinement for recovery he kept having breathing problem and reason why he is on home Oxygen at 2- 3L/NC.Patient reports last June 2012 he attended a wedding at [place] in [place] and he started having low oxygen saturation and he was admitted for pneumonia.Today while he was about to go to bed he checked his Saturation and it's been maintaining in the high 80's so he kept increasing his Oxygen to 4 and up to 5L/NC but he is unable to keep it up to 90's so he decided to come to the ED for evaluation,he is concerned he might have pneumonia again he said.Patient reports he noticed he is unable to walk in short distances without being short of breath.Patient had an echocardiogram done on 07/09/2024 which revealed EF is 30-35% there is global hypokinesis of the left ventricle. Severe inferior and posterior hypokinesis mild lateral inferolateral hypokinesis stage I diastolic dysfunction. Patient also has a Lexiscan stress test done on July 11, 2024 which revealed there is global hypokinesis of the left ventricle with an estimated left ventricle EF of 31%. No transient ischemic dilation of the left ventricle. There is a small size mild severity perfusion defect of the inferolateral segment however partial improvement in stress imaging. Seen and examined patient in the ER awake alert and coherent, appears mildly short of breath. Patient denies chest pain, palpitation, nausea, vomiting, edema and abdominal pain. Latest vital signs temperature 100.2, heart rate 91 blood pressure 149/79 saturation 92% on 3 L nasal cannula. Labs: WBC 11.5, hemoglobin 15.3, hematocrit 46.8 platelet count 242. Chloride 100 glucose 141 BNP 76. Influenza type a and B negative SARs COVID negative. Chest x-ray result revealed a frontal projection of the chest was obtained bilateral pulmonary infiltrates are seen with left more than right with left pleural effusion unchanged the heart is borderline enlarged of the lines and tubes are again seen in place no evidence of aortic calcification is seen. While in the ER patient received Tylenol 1000 mg p.o. levofloxacin 250 mg p.o. we will admit patient for further medical management. Assessment/Plan: ASSESSMENT: Acute on chronic respiratory failure POA Suspected left lung pneumonia with left pleural effusion POA CHF not on exacerbation POA Sirs with organ dysfunction POA Hypertension POA Hyperlipidemia POA Diabetes POA Morbid Obesity POA PLAN: Continue medical telemetry admission Continue with oxygen supplementation to keep O2 sat greater than 92% Continue with ceftriaxone1 g Q 24 hours Continue with IV phalanx with dexamethasone 6 mg Q 24 hours IV Continue with heart healthy diet Continue with Lovenox 30 mg subQ for DVT prophylaxis Continue Famotidine 20 mg IV bid for GI prophylaxis We will continued replace electrolytes as needed per protocol Continue insulin sliding scale AC & HS with hypoglycemia protocol Continue prn medication for fever,pain,cough and nausea Continue DuoNeb treatment Daily weight and strict I&O Labs in a.m. Appreciate recommendations from public health technologist Appreciate pulmonology input Disposition: Discharged at home in24 hours if he continues to be stable. Meme ent was started with new medication Entresto b.i.d. today Case discussed with attending physician and came up with above treatment and plan of care. Home Medications: Active Scripts Cefdinir (Cefdinir) 300 Mg Capsule, 1 CAP PO BID for 7 Days, #14 CAP 0 Refills Prov:SINA LUIS AGPCNP 09/29/24 Methylprednisolone (Medrol) 4 Mg Tab.ds.pk, 1 TAB PO AD for 6 Days, #21 TAB 0 Refills 6 on day 1 then reduce by one tablet daily until gone Prov:SINA LUIS AGPCNP 09/29/24 Sacubitril/Valsartan (Entresto 24 mg-26 mg Tablet) 24 Mg-26 Mg Tablet, 1 EACH PO DAILY, #30 TAB 0 Refills Prov:SINA LUIS AGPCNP 09/29/24 Furosemide (Lasix 40Mg Tab) 40 Mg Tablet, 40 MG PO DAILY, #30 TAB 0 Refills Prov:SINA LUIS AGPCNP 09/29/24 Reported Medications Metformin HCl (Metformin HCl) 500 Mg Tablet, 1000 MG PO HS, TAB 09/27/24 Metformin HCl (Metformin HCl) 500 Mg Tablet, 1 TAB PO DAILY for 30 Days, #60 TAB 0 Refills 09/27/24 Carvedilol (Carvedilol) 6.25 Mg Tablet, 1 TAB PO DAILY for 30 Days, #60 TAB 0 Refills 09/27/24 Simvastatin (Simvastatin) 20 Mg Tablet, 1 TAB PO HS for 30 Days, #30 TAB 0 Refills 09/27/24 Empagliflozin (Jardiance) 10 Mg Tablet, 1 TAB PO DAILY for 30 Days, #30 TAB 0 Refills 09/27/24 Fluticasone/Umeclidin/Vilanter (Trelegy Ellipta 100-62.5-25) 100-62.5 Blst.w.dev, 1 PUFF IH DAILY for 30 Days, #1 EACH 0 Refills 09/27/24 Discontinued Reported Medications Fluticasone/Umeclidin/Vilanter (Trelegy Ellipta 100-62.5-25) 100-62.5 Blst.w.dev, 1 PUFF IH DAILY for 30 Days, #1 EACH 0 Refills 07/08/24 Simvastatin (Simvastatin) 20 Mg Tablet, 1 TAB PO HS for 30 Days, #30 TAB 0 Refills 07/08/24 Metoprolol Tartrate (Metoprolol Tartrate) 50 Mg Tablet, 1 TAB PO BID for 30 Days, #60 TAB 0 Refills 07/08/24 Metformin HCl (Metformin HCl) 500 Mg Tablet, 1 TAB PO BID for 30 Days, #60 TAB 0 Refills 07/08/24 Empagliflozin (Jardiance) 10 Mg Tablet, 1 TAB PO DAILY for 30 Days, #30 TAB 0 Refills 07/08/24 Discontinued Scripts Amoxicillin/Potassium Clav (Amox Tr-K Clv 875-125 mg Tab) 875 Mg-125 Mg Tablet, 1 TAB PO BID for 7 Days, #14 TAB 0 Refills Prov:RANDOLPH TAPIA APRN 07/12/24 Famotidine (Famotidine) 20 Mg Tablet, 20 MG PO BID, #60 TAB Prov:RANDOLPH TAPIA MOVER HELPER 07/12/24 Time spent arranging discharge: 31-60 minutes SINA LUIS AGPCARACELI Sep 29, 2024 11:41
[2024-09-29] MEDS: furoSEMIDE 40 MG TABLET PO SCH (11:59)
--- NOTE | 2024-09-29 14:04 | NUR ---
discharge gave patient printed discharge paperwork, educated patient regarding diet, activity, follow up appointments, medications, signs and symptoms to report/return to ER. Answered pt questions, patient understood. patient going home with personal portable oxygen.
--- NOTE | 2024-09-29 15:23 | DS ---
Discharge Summary Hospital Course Summary: 64-year-old male with past medical history of respiratory failure, CHF, hypertension, diabetes type 2, hyperlipidemia and COVID pneumonia who was brought to the ED for complaints of worsening shortness of breaths which started today.Patient reports ever since he had Covid pneumonia in 2020 which required him prolonged hospital confinement for recovery he kept having breathing problem and reason why he is on home Oxygen at 2- 3L/NC.Patient reports last June 2012 he attended a wedding at [place] in [place] and he started having low oxygen saturation and he was admitted for pneumonia.Today while he was about to go to bed he checked his Saturation and it's been maintaining in the high 80's so he kept increasing his Oxygen to 4 and up to 5L/NC but he is unable to keep it up to 90's so he decided to come to the ED for evaluation,he is concerned he might have pneumonia again he said.Patient reports he noticed he is unable to walk in short distances without being short of breath.Patient had an echocardiogram done on 07/09/2024 which revealed EF is 30-35% there is global hypokinesis of the left ventricle. Severe inferior and posterior hypokinesis mild lateral inferolateral hypokinesis stage I diastolic dysfunction. Patient also has a Lexiscan stress test done on July 11, 2024 which revealed there is global hypokinesis of the left ventricle with an estimated left ventricle EF of 31%. No transient ischemic dilation of the left ventricle. There is a small size mild severity perfusion defect of the inferolateral segment however partial improvement in stress imaging. Seen and examined patient in the ER awake alert and coherent, appears mildly short of breath. Patient denies chest pain, palpitation, nausea, vomiting, edema and abdominal pain. Latest vital signs temperature 100.2, heart rate 91 blood pressure 149/79 saturation 92% on 3 L nasal cannula. Labs: WBC 11.5, hemoglobin 15.3, hematocrit 46.8 platelet count 242. Chloride 100 glucose 141 BNP 76. Influenza type a and B negative SARs COVID negative. Chest x-ray result revealed a frontal projection of the chest was obtained bilateral pulmonary infiltrates are seen with left more than right with left pleural effusion unchanged the heart is borderline enlarged of the lines and tubes are again seen in place no evidence of aortic calcification is seen. While in the ER patient received Tylenol 1000 mg p.o. levofloxacin 250 mg p.o. patient was admitted for medical management Patient was evaluated by cna caregiver who started patient on Lasix IV q.12 hours patient was also on continuous oxygen supplementation. Patient also was evaluated by assistant in nursing Dr. Ventura Alexander who indicated that patient is with history of CHF but not on exacerbation. She did adjust medication and added Entresto 2426 mg p.o. b.i.d.. Today patient was started with Lasix 40 mg p.o. b.i.d. as well. Patient is doing better, he remain on oxygen supplementation at 3 L via nasal cannula for which. This is patient's baseline. He is hemodynamically stable. He does not have any fever. Labs reviewed. Patient can be discharged. Fire Supervisor(s): Dr. Ventura alexander, assistant in nursing Dr. Aldo Diehl, cna caregiver Procedure(s): [place] [address] [place] [id number] IMAGING REPORT Signed PATIENT: JACINDA YOUSIF MR#: [id number] : 1960 SEX: M AGE: 64 LOCATION: [facility] ORDER 2300 STATUS: ADM IN REPORT#: [id number] SERVICE 0600 REASON: left lung pneumonia ORDERING PHYSICIAN: VENTURA ALEXANDER MD PROCEDURE: CXR1VW - CHEST 1VW CHEST 1VW HISTORY: Left lung pneumonia COMPARISON: 09/28/2024 FINDINGS: A frontal projection of the chest was obtained. Left lung pulmonary infiltrates are seen slightly increased from previous study. The heart is borderline enlarged. Prominent interstitial markings are seen. No evidence of aortic calcification is seen. IMPRESSION: 1. Left lung pulmonary infiltrates slightly increased from previous study. DICTATED BY: CHRIS LIZARRAGA MD DATE: 09/29/241123 ELECTRONICALLY SIGNED BY: CHRIS LIZARRAGA MD DATE: 09/29/241127 Assessment/Plan: ASSESSMENT: Acute on chronic respiratory failure POA Suspected left lung pneumonia with left pleural effusion POA CHF not on exacerbation POA Sirs with organ dysfunction POA Hypertension POA Hyperlipidemia POA Diabetes POA Morbid Obesity POA PLAN: Continue medical telemetry admission Continue with oxygen supplementation to keep O2 sat greater than 92% Continue with ceftriaxone1 g Q 24 hours Continue with IV phalanx with dexamethasone 6 mg Q 24 hours IV Continue with heart healthy diet Continue with Lovenox 30 mg subQ for DVT prophylaxis Continue Famotidine 20 mg IV bid for GI prophylaxis We will continued replace electrolytes as needed per protocol Continue insulin sliding scale AC & HS with hypoglycemia protocol Continue prn medication for fever,pain,cough and nausea Continue DuoNeb treatment Daily weight and strict I&O Labs in a.m. Appreciate recommendations from assistant in nursing Appreciate pulmonology input Disposition: Discharged at home in24 hours if he continues to be stable. Patient was started with new medication Entresto b.i.d. today Case discussed with attending physician and came up with above treatment and plan of care. Discharge Instructions: Follow up with your PCP in 2-3 days Follow up with assistant in nursing in one week Follow up with cna caregiver in one week Home Medications: Active Scripts Cefdinir (Cefdinir) 300 Mg Capsule, 1 CAP PO BID for 7 Days, #14 CAP 0 Refills Prov:SINA LUIS AGPCNP 09/29/24 Methylprednisolone (Medrol) 4 Mg Tab.ds.pk, 1 TAB PO AD for 6 Days, #21 TAB 0 Refills 6 on day 1 then reduce by one tablet daily until gone Prov:SINA LUISPCNP 09/29/24 Sacubitril/Valsartan (Entresto 24 mg-26 mg Tablet) 24 Mg-26 Mg Tablet, 1 EACH PO DAILY, #30 TAB 0 Refills Prov:SINA LUIS AGPCNP 09/29/24 Furosemide (Lasix 40Mg Tab) 40 Mg Tablet, 40 MG PO DAILY, #30 TAB 0 Refills Prov:SINA LUIS AGPCNP 09/29/24 Reported Medications Metformin HCl (Metformin HCl) 500 Mg Tablet, 1000 MG PO HS, TAB 09/27/24 Metformin HCl (Metformin HCl) 500 Mg Tablet, 1 TAB PO DAILY for 30 Days, #60 TAB 0 Refills 09/27/24 Carvedilol (Carvedilol) 6.25 Mg Tablet, 1 TAB PO DAILY for 30 Days, #60 TAB 0 Refills 09/27/24 Simvastatin (Simvastatin) 20 Mg Tablet, 1 TAB PO HS for 30 Days, #30 TAB 0 Refills 09/27/24 Empagliflozin (Jardiance) 10 Mg Tablet, 1 TAB PO DAILY for 30 Days, #30 TAB 0 Refills 09/27/24 Fluticasone/Umeclidin/Vilanter (Trelegy Ellipta 100-62.5-25) 100-62.5 Blst.w.de v, 1 PUFF IH DAILY for 30 Days, #1 EACH 0 Refills 09/27/24 Discontinued Reported Medications Fluticasone/Umeclidin/Vilanter (Trelegy Ellipta 100-62.5-25) 100-62.5 Blst.w.dev, 1 PUFF IH DAILY for 30 Days, #1 EACH 0 Refills 07/08/24 Simvastatin (Simvastatin) 20 Mg Tablet, 1 TAB PO HS for 30 Days, #30 TAB 0 Refills 07/08/24 Metoprolol Tartrate (Metoprolol Tartrate) 50 Mg Tablet, 1 TAB PO BID for 30 Days, #60 TAB 0 Refills 07/08/24 Metformin HCl (Metformin HCl) 500 Mg Tablet, 1 TAB PO BID for 30 Days, #60 TAB 0 Refills 07/08/24 Empagliflozin (Jardiance) 10 Mg Tablet, 1 TAB PO DAILY for 30 Days, #30 TAB 0 Refills 07/08/24 Discontinued Scripts Amoxicillin/Potassium Clav (Amox Tr-K Clv 875-125 mg Tab) 875 Mg-125 Mg Tablet, 1 TAB PO BID for 7 Days, #14 TAB 0 Refills Prov:RANDOLPH TAPIA OVEN TENDER 07/12/24 Famotidine (Famotidine) 20 Mg Tablet, 20 MG PO BID, #60 TAB Prov:RANDOLPH TAPIA OVEN TENDER 07/12/24 Time spent arranging discharge: 31-60 minutes ATTESTATION BY PHYSICIAN I have seen and examined the patient. I reviewed the documentation, medical decision making, and treatment plan as noted by the mid-level provider above. I agree with the findings and plan of care. OZIEL CORNELIUS MD, [facility] Sep 29, 2024 15:23
== END 2024-09-29 14:20 | disposition home or self-care (01) | DRG 193 ==
LOC: EDH 00:42 → EDHIP 04:45 → 4CH 20:22
PROVIDERS: ADMIT Internal Medicine; ATTEND Internal Medicine
DX: J18.9 Pneumonia, unspecified organism (principal); J96.21 Acute and chronic respiratory failure with hypoxia; I50.42 Chronic combined systolic (congestive) and diastolic (congestive) heart failure; Z20.822 Contact with and (suspected) exposure to COVID-19; E11.9 Type 2 diabetes mellitus without complications; E78.5 Hyperlipidemia, unspecified; E66.01 Morbid (severe) obesity due to excess calories; I11.0 Hypertensive heart disease with heart failure; Z79.84 Long term (current) use of oral hypoglycemic drugs; Z82.49 Family history of ischemic heart disease and other diseases of the circulatory system; Z86.16 Personal history of COVID-19; Z99.81 Dependence on supplemental oxygen; Z68.37 Body mass index [BMI] 37.0-37.9, adult; Z79.899 Other long term (current) drug therapy
CPT/HCPCS: 36415; 71045; 71250; 80048; 80053; 81001; 82948; 83036; 83735; 83880; 85025; 85027; 85378; 87071; 87205; 87635; 87804; 93005; 94640; 94664; 99285; G0378; J0456; J0696; J1100; J1650; J1815; J1940; J2919; J3490

== ENCOUNTER 2024-12-07 05:58 | Day surgery (SDC) | payer BC, MEDICARE ==
[2024-12-05 11:02] LABS: BASOPHILS # (AUTO) 0.06 K/uL (0.00-0.20); BASOPHILS % (AUTO) 0.6 % (0.0-5.0); EOSINOPHILS # (AUTO) 0.49 K/uL (0.00-0.70); IMMATURE GRANULOCYTE ABSOLUTE 0.11 K/uL (0-1); LYMPHOCYTES # (AUTO) 2.3 K/uL (1.0-4.8); LYMPHOCYTES % (AUTO) 23.1 % (21.0-51.0); MEAN CORPUSCULAR HGB CONC 31.3 g/dL (32.0-36.0); MEAN CORPUSCULAR VOLUME 98.9 fL (79-99); MONOCYTES # (AUTO) 1.3 K/uL (0.1-1.0); MONOCYTES % (AUTO) 13.4 % (3.0-13.0); NEUTROPHILS # (AUTO) 5.6 K/uL (1.8-7.7); NEUTROPHILS % (AUTO) 56.8 % (40.0-77.0); PLATELET COUNT (AUTO) 247 K/uL (130-400); RED BLOOD CELL COUNT(AUTO) 4.65 MIL/uL (4.50-6.20); RED CELL DISTRIBUTION WIDTH 12.6 % (11.0-15.5); WHITE BLOOD COUNT (AUTO) 9.8 K/uL (4.8-10.8)
[2024-12-05 11:10] LABS: CREATININE 0.8 mg/dL (0.5-1.3); POTASSIUM 4.1 mmol/L (3.5-5.1)
[2024-12-05 11:12] LABS: INR 1.08 (0.85-1.15); PROTHROMBIN TIME 11.4 SEC (9.6-11.6)
[2024-12-05 11:13] LABS: PARTIAL THROMBOPLASTIN TIME 33.5 SEC (26.3-35.5)
[2024-12-05 11:28] VITALS: BP 151/83; PULSE 74; RESP 17; TEMP 97.9
[2024-12-05 11:56] LABS: B-TYPE NATRIURETIC PEPTIDE 48 pg/mL (0-100)
--- NOTE | 2024-12-05 11:57 | EKG ---
[facility] Test Date: 2024-12-05 Test Time: 10:53:15 Pat Name: JACINDA YOUSIF Department: [facility] Room: Gender: M Finish Grinder: [id number] : 1960 Requested By: MARLEN ROSS Order Number: [id number] Reading MD: Juan Burgess Measurements Intervals [place] Rate: 72 P: 2 [place]: 186 QRS: -2 QRSD: 100 T: 115 QT: 378 QTc: 414 Interpretive Statements Sinus rhythm Abnormal T, consider ischemia, lateral leads Borderline ST elevation, anterior leads Compared to ECG 09/27/2024 05:59:27 T-wave abnormality now present Possible ischemia now present ST (T wave) deviation now present Electronically Signed On 12-05-2024 17:51:49 CDT by Juan Burgess Please click the below link to view image of tracing.
--- NOTE | 2024-12-05 12:08 | HMCIMG ---
CHEST 1VW HISTORY: Preop COMPARISON: 09/29/2024 FINDINGS: A frontal projection of the chest was obtained. Prominent interstitial markings are seen with possible superimposed infiltrates. The heart is borderline enlarged. Degenerative changes are seen. Aortic calcifications are seen. IMPRESSION: 1. Prominent interstitial markings are seen with possible superimposed infiltrates.
--- NOTE | 2024-12-06 09:43 | NUR ---
REPORT REPORTED CXR TO DR MARLEN ROSS. OK TO PROCEED
[2024-12-07] VITALS (10 sets, daily range): BP systolic 126–165; BP diastolic 66–79; PULSE 76–93; RESP 16–25; TEMP 96.8–97.3
[~2024-12-07] VITALS: Ht 167.6 cm; Wt 103.1 kg
[~2024-12-07 05:58] MED LIST changes: -AMOX1TAB16 PO; +CARV6.25 PO; -FAMO20TA8 PO; +METH32TA2 PO; -METO50TA18 PO; +PHARMACY COMMUNICATION MISC SCH
[2024-12-07] MEDS: 0.9%NACL 1000ML 1,000 ML IV SCH (06:30)
[2024-12-07] MEDS ORDERED: HEParin 10,000 UNIT/10ML (1,000 UNIT/ML) VIAL ONE (07:09)
[2024-12-07] MEDS ORDERED: LIDOCAINE HCL 400MG/20ML VIAL ONE (07:09)
[2024-12-07] MEDS ORDERED: IOHEXOL 350 MG/ML 100ML INFUS..BTL IV ONE ×2 (07:09→08:24)
[2024-12-07] MEDS ORDERED: NITROGLYCERIN 50MG VIAL ONE (07:10)
[2024-12-07] MEDS ORDERED: HEParin-NS 1,000 UNIT/500 ML 1,000 ML IV ONE (07:10)
[2024-12-07] MEDS ORDERED: VERAPAMIL HCL 2.5 MG/ML VIAL ONE (07:15)
[2024-12-07] MEDS ORDERED: DiphenhydrAMINE HCL 50 MG/ML VIAL ONE (07:32)
[2024-12-07] MEDS ORDERED: FENTanyl CITRate PF 50 MCG/1 ML 2ML VIAL ONE (07:33)
[2024-12-07] MEDS ORDERED: MIDAZOLAM HCL 1 MG/ML 2ML VIAL ONE ×2 (07:33→08:13)
[2024-12-07] MEDS ORDERED: cloPIDOgrel 300MG TAB ONE (08:04)
[2024-12-07] MEDS ORDERED: ASPIRIN 81MG CHEW TAB ONE (08:04)
[2024-12-07] MEDS ORDERED: HEParin-NS 1,000 UNIT/500 ML 500 ML IV ONE (08:08)
[2024-12-07] MEDS ORDERED: GLUCAGON 1MG KIT 1 MG ML IM PRN (09:00)
[2024-12-07] MEDS ORDERED: cloPIDOgrel 75MG TAB PO SCH (09:00)
[2024-12-07] MEDS ORDERED: 0.9%NACL 1000ML 1,000 ML IV SCH (09:00)
[2024-12-07] MEDS ORDERED: ASPIRIN 81MG CHEW TAB PO SCH (09:00)
[2024-12-07] MEDS ORDERED: DEXTROSE 50%-WATER 50 ML DISP.SYRIN IV PRN (09:00)
--- NOTE | 2024-12-07 09:13 | PRN ---
PROCEDURE REPORT DATE OF PROCEDURE: Dec 07, 2024 COMMERCIAL LOAN UNDERWRITER: [ Marlen alexander MD] PROCEDURE PERFORMED: Conscious sedation Ultrasound guided right radial artery access Selective left coronary artery angiogram Selective right coronary artery angiogram Left heart catheterization IVUS of the left main and LAD Status post successful IVUS guided PTCA/PCI of the prox to mid LAD x1 (3.5 x 30 mm kaity Benson PIOTR, postdilated to 4 mm) TR band 13 emmanuel over right radial artery INDICATION: Abnormal coronary CTA DESCRIPTION OF PROCEDURE: After informed consent was obtained, the patient was prepped and draped in the usual sterile fashion. A 6 Guamanian arterial sheath was inserted in the right radial artery using ultrasound guidance with first pass wall puncture. The arterial sheath was aspirated and flushed. A 6 Guamanian JL 3.5 was then advanced to the ascending aorta over an exchange length J-tip guidewire, was aspirated and flushed, and was used for selective coronary angiograms in multiple obliquities. A JR-4 was advanced in a similar fashion to the ascending aorta over the J-tipped guidewire and was used for selective right coronary angiograms in multiple oblique views with findings as outlined below. The JR-4 catheter advanced into the LV and pressures were obtained with a pull-back across the aortic valve. Following review of all the angiographic images decision was made to intervene on patient's critical proximal LAD lesion. We exchanged the diagnostic catheter for a six Guamanian XB three guide catheter was which was advanced in similar fashion over the wire and used to engage the left main coronary [place]. [place] [id number] units of IV heparin along with loading doses of aspirin and Plavix and following therapeutic ACT we advanced a [place] into the distal LAD under fluoroscopic guidance. We pre-dilated the prox to mid lesion using a 2.5 x 20 mm compliant balloon to 14 and 16 EMMANUEL respectively. We then proceeded with IVUS imaging of the LAD and left main to delineate lesion morphology and characteristics. We provided 200 mcg of intracoronary nitroglycerin and we proceeded with stenting using a 3.5 x 30 mm kaity Benson drug-eluting stent which was deployed in the prox to mid LAD to nominal pressures. We post dilated this initially with a 3.5 x 25 mm noncompliant balloon to 14 and 16 EMMANUEL. We noted mild stent underexpansion in the mid stent segment so we further post dilated this using a 4 x 15 mm noncompliant balloon to 16 EMMANUEL. We noted residual stent underexpansion in the mid segment of the stent so we proceeded with further post dilatation using a 4 x 8 mm noncompliant balloon to 20 EMMANULE for 20 seconds with improvement and stent expansion. Following this we noted gnosticism of SHABANA three flow with no dissections or perforations. All wires and catheters removed from the body and a A TR band was placed over right radial artery. Patient tolerated procedure well with no postprocedure complication was transferred to pathology laboratory aides teacher holding in stable condition FLUOROSCOPY TIME: 3.2 min LEFT HEART HEMODYNAMICS: LVEDP 16 mm Hg and no gradient Ao CORONARY ANGIOGRAM: LEFT MAIN: Patent and 0% stenosis. Gives rise to LCx and LAD. LEFT ANTERIOR DESCENDING: Large vessel giving rise to two Diagonal branches. Calcified with 80-85% prox to mid stenosis with SHABANA two flow. The diagonals are small but patent LEFT CIRCUMFLEX: Large, dominant and gives rise to three OM branches. OM2 has 30-40% proximal stenosis. RIGHT CORONARY ARTERY: Small, nondominant vessel . Calcified with 80% ostial and 90-95% prox to mid stenosis HEMOSTASIS: TR band 12 emmanuel over right radial artery INTERVENTIONS: Status post successful IVUS guided PTCA/PCI of the prox to mid LAD x1 (3.5 x 30 mm kaity Benson PIOTR, postdilated to 4 mm). COMPLICATIONS: None FINDINGS: Normal coronary anatomy and severe prox-mid LAD obstructive CAD status post successful revascularization. ESTIMATED BLOOD LOSS: 5 cc RECOMMENDATIONS/INSTRUCTIONS: Aggressive risk factor modification. Patient require six months of dap (aspirin 81 mg daily/Plavix 75 mg daily) in addition to high-intensity statin therapy and beta-venkat Optimize GDM T and plan for repeat 2D echocardiogram in 3-6 months to assess for systolic recovery Radial precautions and follow up with Dr. Ivanna alexander in 1-2 weeks post discharge CONTRAST DELIVERED TO PATIENT (mL): 220cc MARLEN Agrawal MD, MD Dec 07, 2024 09:13
--- NOTE | 2024-12-07 11:40 | NUR ---
VASC BAND: VASC BAND REMOVED WITH NO ACTIVE BLEEDING PRESENT. CLEANSED AREA WITH CHLORAPREP FOLLOWED BY APPLYING STERILE 2X2 GAUZE AND THEN 2X2 TEGADERM. NO REDNESS/SWELLING NOTED TO SURROUNDING AREA RT WRIST.
== END 2024-12-07 12:45 | disposition home or self-care (01) ==
LOC: DAH 05:58
PROVIDERS: ATTEND Student in an Organized Health Care Education/Training Program
DX: R93.1 Abnormal findings on diagnostic imaging of heart and coronary circulation (principal); I25.10 Atherosclerotic heart disease of native coronary artery without angina pectoris; I25.84 Coronary atherosclerosis due to calcified coronary lesion; I11.0 Hypertensive heart disease with heart failure; I50.22 Chronic systolic (congestive) heart failure; E11.9 Type 2 diabetes mellitus without complications; J84.10 Pulmonary fibrosis, unspecified; E78.00 Pure hypercholesterolemia, unspecified; Z98.890 Other specified postprocedural states; Z82.49 Family history of ischemic heart disease and other diseases of the circulatory system; Z88.1 Allergy status to other antibiotic agents; Z88.8 Allergy status to other drugs, medicaments and biological substances; Z79.899 Other long term (current) drug therapy; Z79.84 Long term (current) use of oral hypoglycemic drugs
CPT/HCPCS: 36415; 71045; 80048; 82948; 83880; 85025; 85347; 85610; 85730; 92978; 92979; 93005; 93458; 96360; 96361; 99156; 99157; A4606; C1769; C9600; J1200; J1644; J2250; J3010; J3490; Q9967; A4215; A4216; A4221; A4222; A4223; A4649; A4663; A6206; A6260; C1725; C1753; C1874; C1887; C1894; Q9965